=== PATIENT | female | born 1985 | race Caucasian/White ===

== ENCOUNTER 2021-10-19 20:00 | Inpatient (IN) | payer BC, SELFPAY ==
[2021-10-19 20:01] VITALS: BP 172/94; PULSE 120; RESP 18; TEMP 38.1; O2SAT 99; BMI 18.2
--- NOTE | 2021-10-19 20:23 | XR_ITS ---
PROCEDURE INFORMATION: Exam: XR Chest Exam date and time: 10/19/2021 8:37 PM Age: 36 years old Clinical indication: Fever; Additional info: Body aches TECHNIQUE: Imaging protocol: XR of the chest. Views: 2 views. COMPARISON: No relevant prior studies available. FINDINGS: Lungs: No acute airspace consolidation. Prominent nipple shadows noted. Pleural spaces: No pleural effusion. No pneumothorax. Heart/Mediastinum: Cardiomediastinal silouhette is within normal limits. Bones/joints: No acute osseous abnormality. Soft tissues: Unremarkable. IMPRESSION: No acute findings. No evidence of pneumonia.
[2021-10-19 20:25] LABS: Microscopic, Urine URINE MICROSCOPIC (MICROSCOPIC)
[2021-10-19 20:25] LABS: Coronavirus 19, PCR Not Detected (NotDetected); Influenza A, PCR Not Detected (NotDetected); Influenza B, PCR Not Detected (NotDetected)
[2021-10-19 20:29] LABS: Appearance,Urine CLOUDY (Clear); Bilirubin,Urine Negative (Negative); Blood, Urine 1+ (Negative); Color,Urine YELLOW (Yellow); Glucose,Urine (UA) Negative (Negative); Ketones,Urine Negative (Negative); Leukocyte Esterase,Urine 1+ (Negative); Nitrate,Urine POSITIVE (Negative); PH,Urine 7.5 (5.0-8.5); Protein,Urine 1+ (Negative)
[2021-10-19 20:42] LABS: Barbiturates Screen,Urine Negative ng/ml (<200); Benzodiazepines Screen,Urine Negative ng/ml (<200)
[2021-10-19 20:43] LABS: Basophils # 0.2 K/mm3 (0-0.2); Basophils % 1.3 % (0.1-2.0); Eosinophils # 0.1 K/mm3 (0.0-0.4); Hematocrit 47.6 % (37.0-47.0); Hemoglobin 16.3 g/dL (12.2-16.2); Lymphocytes # 0.6 K/mm3 (0.7-4.5); Lymphocytes % 4.7 % (10-50); Mean Corpuscular HGB Conc 34.2 g/dL (31.8-35.4); Mean Corpuscular Hemoglobin 30.8 pg (27.0-31.2); Mean Corpuscular Volume 89.9 fl (81-99); Mean Platelet Volume 9.3 fl (7.4-10.4); Monocytes # 0.8 K/mm3 (0.1-1.0); Monocytes % 6.3 % (1.7-9.3); Neutrophils # 10.4 K/mm3 (1.8-7.8); Neutrophils % 86.7 % (37.0-80.0); Platelet Count 133 K/mm3 (142-424); Red Blood Count 5.29 M/mm3 (4.20-5.40); Red Cell Distribution Width 13.4 % (11.5-17.5)
[2021-10-19 20:44] LABS: Cannabinoid Screen,Urine Positive ng/ml (<50); Cocaine Screen,Urine Negative ng/ml (<300)
--- NOTE | 2021-10-19 20:44 | PC.NURSE ---
Pt gone to RAD
[2021-10-19 20:45] LABS: Methadone Screen,Urine Negative ng/ml (<300); Opiate Screen,Urine Negative ng/ml (<300)
[2021-10-19 20:46] LABS: Phencyclidine Screen,Urine Negative ng/ml (<25)
--- NOTE | 2021-10-19 20:49 | PC.NURSE ---
Pt back from RAD
[2021-10-19 21:00] LABS: MANUAL DIFFERENTIAL MANUAL DIFFERENTIAL (MANUAL DIFF)
[2021-10-19 21:06] LABS: Alanine Aminotransferase 45 U/L (12-78); Albumin Level 4.1 g/dl (3.5-5.0); Albumin/Globulin Ratio 1.2 (1.1-1.8); Alkaline Phosphatase 62 U/L (38-126); Anion Gap 12.9 mEq/L (5-15); Aspartate Amino Transferase 51 U/L (14-36); Bilirubin,Total 1.1 mg/dl (0.2-1.3); Blood Urea Nitrogen 11 mg/dl (7-17); Calcium 8.8 mg/dl (8.4-10.2); Carbon Dioxide 26 mmol/L (22.0-30.0); Chloride 93 mmol/L (98-107); Creatinine Clearance Estimated 112 mL/min (50-200); Estimated Glomerular Filt Rate 114 ml/min (>60); GFR (African American) 138 ML/MIN (>60); Globulin 3.3 g/dL (1.3-3.2); Glucose 137 mg/dl (74-100); Potassium 4.9 mmoL/L (3.5-5.1); Sodium 127 mmol/L (136-145); Total Protein,Serum 7.4 g/dl (6.3-8.2)
[2021-10-19 21:07] LABS: Lactic Acid 2.5 mmol/L (0.7-2.1)
[2021-10-19 21:10] LABS: Bacteria,Urine 2+ /lpf; WBC,Urine 20-50 #/hpf (0-3)
--- NOTE | 2021-10-19 21:10 | HMH.EDURI ---
ED Disposition Clinical Impression: Pyelonephritis, Severe sepsis with acute organ dysfunction, Septic embolism, IVDU (intravenous drug user), Low body mass index (BMI), Amphetamine abuse, Tobacco use Disposition: Admitted As Inpatient Condition on Discharge: Serious Referrals: Provider,Referral, [Primary Care Provider] - - Critical Care Critical Care Time: No Attestation: On 10/19/21, the high probability of a clinically significant, sudden or life threatening deterioration of the following system(s) required my full and direct attention, intervention and personal management. The time I documented below is in addition to time spent performing reported procedures but includes the following listed in this critical care notation. Medical Decision Making - Medical Records Medical records reviewed: Yes: I reviewed the patient's medical records. - Mike Inquiry Pt receiving controlled substance: No Vital Signs: 10/19/21 20:01 10/19/21 21:30 10/19/21 22:18 Temperature 100.6 F H 102.9 F H Temperature Source Oral Oral Pulse Rate 121 H 99 H Pulse Rate [Right] 120 H Respiratory Rate 18 17 Blood Pressure 134/94 H 115/80 Blood Pressure [Right Arm] 172/94 H Blood Pressure Mean 91 Blood Pressure Mean [Right Arm] 120 02 Sat by Pulse Oximetry 99 99 99 Oxygen Delivery Method Room Air 10/19/21 22:30 10/19/21 23:04 10/19/21 23:30 Temperature Temperature Source Pulse Rate 99 H 87 80 Pulse Rate [Right] Respiratory Rate 17 17 16 Blood Pressure 99/58 L 132/83 112/72 Blood Pressure [Right Arm] Blood Pressure Mean 71 100 85 Blood Pressure Mean [Right Arm] 02 Sat by Pulse Oximetry 100 100 98 Oxygen Delivery Method 10/20/21 00:30 10/20/21 01:00 Temperature 97.9 F Temperature Source Oral Pulse Rate 85 79 Pulse Rate [Right] Respiratory Rate 16 16 Blood Pressure 111/75 108/66 L Blood Pressure [Right Arm] Blood Pressure Mean 82 75 Blood Pressure Mean [Right Arm] 02 Sat by Pulse Oximetry 100 98 Oxygen Delivery Method - Lab Data Lab results reviewed: Yes: I reviewed the patient's lab results. Lab Results 10/19/21 20:19: Urine Color Yellow, Urine Appearance Cloudy, Urine pH 7.5, Ur Specific [place] 1.020, Urine Protein 1+, Urine Glucose (UA) Negative, Urine Ketones Negative, Urine Blood 1+, Urine Nitrate Positive, Urine Bilirubin Negative, Urine Urobilinogen 1.0, Ur Leukocyte Esterase 1+ A, Urine RBC 3-5, Urine WBC 20-50, Ur Squamous Epith Cells 3-5, Urine Bacteria 2+ 10/19/21 20:19: Urine Opiates Screen Negative, Urine Methadone Screen Negative, Ur Barbituates Screen Negative, Ur Phencyclidine Scrn Negative, Ur Amphetamines Screen Positive H, U Benzodiazepines Scrn Negative, Urine Cocaine Screen Negative, U Marijuana (THC) Screen Positive H 10/19/21 20:21: SARS-CoV-2 (PCR) Not detected, Influenza A Untype (PCR) Not detected, Influenza Type B (PCR) Not detected 10/19/21 20:32: WBC 12.0 H, RBC 5.29, Hgb 16.3 H, Hct 47.6 H, MCV 89.9, MCH 30.8, MCHC 34.2, RDW 13.4, Plt Count 133 L, MPV 9.3, Neut % (Auto) 86.7 H, Lymph % (Auto) 4.7 L, [place] % (Auto) 6.3, Eos % (Auto) 1.0, Baso % (Auto) 1.3, Neut # (Auto) 10.4 H, Lymph # (Auto) 0.6 L, [place] # (Auto) 0.8, Eos # (Auto) 0.1, Baso # (Auto) 0.2, Total Counted 100, Neutrophils % (Manual) 86 H, Lymphocytes % (Manual) 4 L, Monocytes % (Manual) 10 H, Platelet Estimate Slight decrease, ESR 10 10/19/21 20:32: Sodium 127 L, Potassium 4.9, Chloride 93 L, Carbon Dioxide 26, Anion Gap 12.9, BUN 11, Creatinine 0.60, Estimated Creat Clear 112, Estimated GFR 114, Est GFR ( Amer) 138, Glucose 137 H, Calcium 8.8, Total Bilirubin 1.1, AST 51 H, ALT 45, Alkaline Phosphatase 62, C-Reactive Protein 60.2 H, Total Protein 7.4, Albumin 4.1, Globulin 3.3 H, Albumin/Globulin Ratio 1.2, Procalcitonin 0.542 10/19/21 20:32: Lactate 2.5 H Result diagrams: 10/19/21 20:32 10/19/21 20:32 Orders (Tests/Meds): ED MEDICATIONS Generic Name Dose Route Start Last Adm
[2021-10-19 21:11] LABS: C-Reactive Protein 60.2 mg/L (0-4)
[2021-10-19 21:13] LABS: Amphetamine/Metha Screen,Urine Positive ng/ml (<1000)
[2021-10-19 21:25] LABS: Procalcitonin 0.542 ng/mL (0.0-2.0)
[2021-10-19 21:30] VITALS: BP 134/94; PULSE 121; TEMP 39.4; O2SAT 99
--- NOTE | 2021-10-19 21:33 | CT_ITS ---
PROCEDURE INFORMATION: Exam: CT Lumbar Spine With Contrast Exam date and time: 10/19/2021 9:53 PM Age: 36 years old Clinical indication: Other: Fever TECHNIQUE: Imaging protocol: Computed tomography images of the lumbar spine with intravenous contrast. Radiation optimization: All CT scans at this facility use at least one of these dose optimization techniques: automated exposure control; mA and/or kV adjustment per patient size (includes targeted exams where dose is matched to clinical indication); or iterative reconstruction. Contrast material: ISOVUE; Contrast volume: 50 ml; Contrast route: IV; COMPARISON: CT THORACIC SPINE W CON 10/19/2021 9:49 PM FINDINGS: Vertebrae: There are 5 [id number] lumbar type vertebral bodies with transitional lumbosacral anatomy. No acute fracture or malalignment. Discs/Spinal canal/Neural foramina: Mild multilevel degenerative disc disease. No significant spinal canal stenosis or neuroforaminal narrowing. Other bones/joints: No suspicious bone lesions. Kidneys and ureters: Multifocal areas of heterogeneous hypoenhancement in the left renal cortex, some of which appear wedge-shaped in morphology, incompletely evaluated. Appendix: Appendix is visualized and is normal. Soft tissues: Unremarkable. IMPRESSION: 1. No acute osseous abnormality in the lumbar spine. 2. Multifocal areas of heterogeneous hypoenhancement in the left renal cortex, some of which appear wedge-shaped in morphology, incompletely evaluated. Findings are concerning for acute pyelonephritis vs potential embolic infarcts given wedge-shaped morphology of some of the lesions. Consider dedicated abdominal imaging for better evaluation. 3. Variant transitional lumbosacral anatomy. 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
--- NOTE | 2021-10-19 21:33 | CT_ITS ---
PROCEDURE INFORMATION: Exam: CT Thoracic Spine With Contrast Exam date and time: 10/19/2021 9:49 PM Age: 36 years old Clinical indication: Other: Fever TECHNIQUE: Imaging protocol: Computed tomography images of the thoracic spine with intravenous contrast. Radiation optimization: All CT scans at this facility use at least one of these dose optimization techniques: automated exposure control; mA and/or kV adjustment per patient size (includes targeted exams where dose is matched to clinical indication); or iterative reconstruction. Contrast material: ISOVUE; Contrast volume: 50 ml; Contrast route: IV; COMPARISON: CT CERVICAL SPINE W CON 10/19/2021 9:44 PM FINDINGS: Vertebrae: No acute fracture or malalignment. No suspicious bone lesions. Discs/Spinal canal/Neural foramina: Mild multilevel degenerative disc disease few Schmorl's nodes in the lower thoracic spine. No significant spinal canal stenosis or neuroforaminal narrowing. Soft tissues: Unremarkable. IMPRESSION: No acute osseous abnormality in the thoracic spine.
--- NOTE | 2021-10-19 21:33 | CT_ITS ---
PROCEDURE INFORMATION: Exam: CT Cervical Spine With Contrast Exam date and time: 10/19/2021 9:44 PM Age: 36 years old Clinical indication: Other: Fever TECHNIQUE: Imaging protocol: Computed tomography images of the cervical spine with intravenous contrast. Radiation optimization: All CT scans at this facility use at least one of these dose optimization techniques: automated exposure control; mA and/or kV adjustment per patient size (includes targeted exams where dose is matched to clinical indication); or iterative reconstruction. Contrast material: ISOVUE; Contrast volume: 50 ml; Contrast route: IV; COMPARISON: CR XR CHEST 2V 10/19/2021 8:37 PM FINDINGS: Bones/joints: No acute fracture or malalignment. Discs/Spinal canal/Neural foramina: No significant spinal canal stenosis or neuroforaminal narrowing. Lungs: No acute abnormality or suspicious mass lesion in the visualized lung apices. Soft tissues: Unremarkable. IMPRESSION: No acute osseous abnormality in the cervical spine.
--- NOTE | 2021-10-19 21:42 | PC.NURSE ---
spoke with Guanaco from [facility] watch on vanc loading dose, 1250mg and he is putting in the order as well as future dosing
[2021-10-19 22:18] VITALS: BP 115/80; PULSE 99; RESP 17; O2SAT 99
[2021-10-19 22:30] VITALS: BP 99/58; PULSE 99; RESP 17; O2SAT 100
[2021-10-19 22:33] LABS: Lymphocytes % 4 % (10-50); Monocytes % 10 % (2-9); Neutrophils % 86 % (42-76); Platelet Estimate Slight Decrease; Total Cells Counted 100
[2021-10-19 22:41] LABS: Erythrocyte Sedimentation Rate 10 mm/hr (0-20)
--- NOTE | 2021-10-19 23:01 | PC.NURSE ---
Pt ambulatory to bathroom with minimal assistance from visitor
[2021-10-19 23:04] VITALS: BP 132/83; PULSE 87; RESP 17; O2SAT 100
--- NOTE | 2021-10-19 23:21 | CT_ITS ---
PROCEDURE INFORMATION: Exam: CT Abdomen And Pelvis With Contrast; Kidneys Exam date and time: 10/19/2021 11:31 PM Age: 36 years old Clinical indication: Abnormal findings; Abnormal radiologic finding of the abdomen; Radiologic exam and body structure: CT lumbar; Additional info: Abn CT lumbat - lt kidney TECHNIQUE: Imaging protocol: Computed tomography of the abdomen and pelvis with intravenous contrast. Exam focused on the kidneys. Radiation optimization: All CT scans at this facility use at least one of these dose optimization techniques: automated exposure control; mA and/or kV adjustment per patient size (includes targeted exams where dose is matched to clinical indication); or iterative reconstruction. Contrast material: ISOVUE; Contrast volume: 45 ml; Contrast route: IV; COMPARISON: CT LUMBAR SPINE W CON 10/19/2021 9:53 PM FINDINGS: Limitations: Paucity of mesenteric fat limits sensitivity in CT evaluation for acute intra-abdominal processes. Liver: Camryn configuration of right hepatic lobe, normal variant. No focal liver lesions. Gallbladder and bile ducts: Unremarkable. Pancreas: Unremarkable. Spleen: Unremarkable. Adrenals: Unremarkable. Kidneys and ureters: Multifocal wedge-shaped hypoenhancing lesions in the left renal cortex with striated nephrogram demonstrated in some areas on delayed phase imaging and persistent hypoattenuation in other areas. The remaining left renal cortex enhances symmetrically with the right kidney in there is symmetric excretion of intravenous contrast into the bilateral renal collecting systems, consistent with preserved renal function. Subcentimeter well-circumscribed round lesions in the bilateral kidneys are too small to characterize, but most likely benign simple renal cysts. No hydronephrosis. Stomach and bowel: Unremarkable. Appendix: Appendix is not confidently identified. Intraperitoneal space: No free fluid. No pneumoperitoneum. Lymph nodes: Unremarkable. Vasculature: Unremarkable. Bladder: Urinary bladder is filled with excreted intravenous contrast material, and otherwise unremarkable. Reproductive: Unremarkable. Bones/joints: No acute osseous abnormality or suspicious bone lesions. Soft tissues: Unremarkable. IMPRESSION: Multifocal hypoenhancing lesions in the left renal cortex demonstrate mixed imaging features of both acute pyelonephritis and embolic infarcts vs parenchymal abscesses. Septic emboli could be a consideration in the appropriate clinical setting. COMMENTS: Consistent with the [employer]'s Incidental Findings Committee white paper (J Am Daniel Radiol 2018): Any incidental renal lesion less than 1 cm or classified as too small to characterize, or any incidental cystic renal lesion characterized as simple-appearing, is likely benign. No follow-up imaging is recommended for these lesions per consensus recommendations based on imaging criteria.
[2021-10-19 23:30] VITALS: BP 112/72; PULSE 80; RESP 16; O2SAT 98
[2021-10-20] VITALS (8 sets, daily range): BP systolic 88–114; BP diastolic 53–79; PULSE 77–88; RESP 16–20; TEMP 36.6–37.8; O2SAT 98–100; BMI 18.1
[2021-10-20 00:38] LABS: Reflex Lactic Add Lactic Reflex
[2021-10-20 00:50] LABS: Lactic Acid Follow Up (RFLX 1) 1.8 mmol/L (0.7-2.1)
--- NOTE | 2021-10-20 01:07 | PC.NURSE ---
PT AWARE OF PLAN TO ADMIT.
--- NOTE | 2021-10-20 01:37 | PC.NURSE ---
REPORT TO JANETH HONEYCUTT.
--- NOTE | 2021-10-20 01:41 | PC.NURSE ---
patient up to floor via wheelchair @ this time.
--- NOTE | 2021-10-20 04:12 | PC.NURSE ---
Patient called out and reported her IV burning, patient was in tears c/o of pain in IV site. IV flushed and aron back great. Pt stated IF you don't take this IV out I will take it out. removed IV in right AC. Educated patient on the importance of having IV access for fluids and the antibiotics she needs. She agreed to have another IV placed. supervisor slate splitting placed 20G in left upper arm. Iv fluids infusing now.
--- NOTE | 2021-10-20 04:44 | PC.NURSE ---
Patient is A/O x3, can ambulate to bathroom independently. Pt voiced x1 c/o of pain in IV site. No other c/o voiced throughout shift. Pt rested intermittently. Awaiting bed at .
[2021-10-20 06:49] LABS: Anion Gap 10.6 mEq/L (5-15); Blood Urea Nitrogen 10 mg/dl (7-17); Calcium 8.2 mg/dl (8.4-10.2); Carbon Dioxide 26 mmol/L (22.0-30.0); Chloride 101 mmol/L (98-107); Creatinine Clearance Estimated 135 mL/min (50-200); Estimated Glomerular Filt Rate 140 ml/min (>60); GFR (African American) 170 ML/MIN (>60); Glucose 99 mg/dl (74-100); Potassium 3.6 mmoL/L (3.5-5.1); Sodium 134 mmol/L (136-145)
[2021-10-20 06:51] LABS: Basophils # 0.1 K/mm3 (0-0.2); Basophils % 0.6 % (0.1-2.0); Eosinophils % 0.1 % (0.1-12.0); Hematocrit 42.3 % (37.0-47.0); Lymphocytes # 0.8 K/mm3 (0.7-4.5); Lymphocytes % 7.6 % (10-50); Mean Corpuscular HGB Conc 34.2 g/dL (31.8-35.4); Mean Corpuscular Hemoglobin 30.7 pg (27.0-31.2); Mean Corpuscular Volume 89.9 fl (81-99); Mean Platelet Volume 9.5 fl (7.4-10.4); Monocytes # 0.8 K/mm3 (0.1-1.0); Monocytes % 7.5 % (1.7-9.3); Neutrophils # 9.1 K/mm3 (1.8-7.8); Neutrophils % 84.2 % (37.0-80.0); Platelet Count 124 K/mm3 (142-424); Red Blood Count 4.71 M/mm3 (4.20-5.40); Red Cell Distribution Width 13.6 % (11.5-17.5); White Blood Count 10.8 K/mm3 (4.8-10.8)
[2021-10-20 07:00] LABS: Hemoglobin 14.5 g/dL (12.2-16.2)
--- NOTE | 2021-10-20 07:51 | HMH.PHAVTE ---
[facility] Pharmacy VTE Monitoring - Patient Demographics Admission date: 10/20/21 Report Date: 10/20/21 Time: 07:51 Allergies/Adverse Reactions: Patient Allergies Sulfa (Sulfonamide Antibiotics) Allergy (Verified 10/20/21 04:10) Height: 1.73 m Weight: 54.431 kg Patient Problems: Current Active Problems Pyelonephritis (Acute) Severe sepsis with acute organ dysfunction (Acute) Septic embolism (Acute) IVDU (intravenous drug user) (Acute) Low body mass index (BMI) (Acute) Amphetamine abuse (Acute) Tobacco use (Acute) - VTE Risk Labs: VTE Related Lab Results Hgb 14.5 g/dL (12.2-16.2) D 10/20/21 06:04 Hct 42.3 % (37.0-47.0) 10/20/21 06:04 Plt Count 124 K/mm3 (142-424) L 10/20/21 06:04 BUN 10 mg/dl (7-17) 10/20/21 06:04 Creatinine 0.50 mg/dl (0.52-1.04) L 10/20/21 06:04 Estimated Creat Clear 135 mL/min (50-200) 10/20/21 06:04 Was VTE Risk Assessment Performed: Yes VTE Score: 1 VTE Risk Level: Very Low Risk Clinical Trial Participant: No - Prophylaxis VTE Prophylaxis Ordered?: Yes Types of VTE Prophylaxis: TEDS Knee High
--- NOTE | 2021-10-20 08:00 | CA_ITS ---
APPROVED REPORT EXAM: Comprehensive 2D, Doppler, and color-flow Echocardiogram Dials Supervisor: JACKSON Valencia, RVS Ht: 5 ft 8 in Wt: 120lbs BSA: 1.64 BP: 000/00 mmHg Indications: IV drug use, Left renal emboli, Sepsis, Fever Echo Enhancing Agent Comments: Bright pericardium 2D Dimensions IVSd 0.56 cm LVEF (Visual) 50.00 % PWd 0.64 cm LA Volume 36.60 mL LVDd 4.41 cm LA Volume Index 22.661214 mL/m2 (M/F) 16-34 LVDs 3.30 cm LVOT 1.90 cm (M/F) 1.5-2.5 M-Mode Dimensions RVDd 1.16 cm (0.9-2.6) LA Diam 2.91 cm (1.9-4.0) LVDd 4.74 cm (3.5-5.7) Ao Diam 3.09 cm (2.0-3.7) LVDs 3.19 cm (3.5-5.7) IVSd 0.51 cm (0.6-1.1) PWd 0.62 cm (0.6-1.1) EF (Teich) 61.10% EPSs 0.44 cm FS 32.70% EDV (Teich) 104.40 mL TAPSE 2.69 (<1.7) ESV (Teich) 40.60 mL LV Diastology E Decel Time 147.00 (160-240 msec) E/A Ratio 2.12 MED E' 11.00 (< 7 cm/sec) MED A' 14.40 cm/s E'/MED E' Ratio 10.53 (>14) LAT E' 16.70 (<10 cm/sec) LAT A' 11.80 cm/s E/LAT E' Ratio 6.93 (>14) Aortic Valve LVOT Max 119.00 (70-110 cm/s) LVOT VTI 21.47 cm AoV Peak Kaden. 135.00 (50-130 cm/s) AO Peak GR. 7.30 mmHg AO Mean GR. 3.70 (<5 mmHg) AO VTI 24.97 (18-25 cm) ALINE (VTI) 2.44 (2.5-4.5 cm2) Mitral Valve MV A Velocity 55.00 (40-130 cm/s) E/A Ratio 2.12 MV Decel. Time 147.00 (160-240 ms) MV Mean Gr. 2.00 (<2mmHg) MV PHT 43.00 ms Pulmonary Valve PV Peak Velocity 121.00 (50-150 cm/s) Left Ventricle Left atrium normal size, left ventricle is normal size, there is no concentric left ventricular hypertrophy, estimated ejection fraction 55% with no regional wall motion abnormality, diastolic parameters are within normal range. Right Ventricle Right atrium and right ventricle are normal size and contractility. Aortic Valve Aortic valve grossly normal, there is no aortic stenosis or aortic insufficiency. Mitral Valve Mitral valve grossly normal, there is trace mitral regurgitation. Tricuspid Valve Tricuspid valve grossly normal, there is trace tricuspid regurgitation, tricuspid regurgitation jet velocity is inadequate for calculation of the right ventricular systolic pressure. Pulmonic Valve Pulmonic valve is poorly visualized. Great Vessels Aortic root is normal size. Inferior vena cava is normal size with normal inspiratory collapse. Pericardium No significant pericardial effusion. Conclusion 1. Normal left ventricular size, preserved left ventricular systolic function, estimated ejection fraction 55% with no regional wall motion abnormality, diastolic parameters are within normal range. 2. Trace mitral and tricuspid regurgitation. 3. No significant pericardial effusion 4. Inferior vena cava is normal size with normal systolic collapse. Electronically signed by : Andres Tucker MD 10/21/2021 06:14:09
--- NOTE | 2021-10-20 08:16 | HMH.PHACONS ---
- Pharmacy Consult Date: 10/20/21 Time: 08:16 Referring provider: DR. CHEUNG Reason for Consult:: VANCOMYCIN DOSING Allergies and ADEs:: Allergies Allergy/AdvReac Type Severity Reaction Status Date / Time Sulfa (Sulfonamide Allergy Verified 10/20/21 04:10 Antibiotics) Home Medications:: Home Medications Medication Instructions Recorded Confirmed Type No Known Home Medications 10/19/21 10/19/21 History Height: 1.73 m Weight: 54.431 kg Laboratory Results:: Laboratory Results - last 24 hr 10/19/21 20:19: Urine Color Yellow, Urine Appearance Cloudy, Urine pH 7.5, Ur Specific [place] 1.020, Urine Protein 1+, Urine Glucose (UA) Negative, Urine Ketones Negative, Urine Blood 1+, Urine Nitrate Positive, Urine Bilirubin Negative, Urine Urobilinogen 1.0, Ur Leukocyte Esterase 1+ A, Urine RBC 3-5, Urine WBC 20-50, Ur Squamous Epith Cells 3-5, Urine Bacteria 2+ 10/19/21 20:19: Urine Opiates Screen Negative, Urine Methadone Screen Negative, Ur Barbituates Screen Negative, Ur Phencyclidine Scrn Negative, Ur Amphetamines Screen Positive H, U Benzodiazepines Scrn Negative, Urine Cocaine Screen Negative, U Marijuana (THC) Screen Positive H 10/19/21 20:21: SARS-CoV-2 (PCR) Not detected, Influenza A Untype (PCR) Not detected, Influenza Type B (PCR) Not detected 10/19/21 20:32: WBC 12.0 H, RBC 5.29, Hgb 16.3 H, Hct 47.6 H, MCV 89.9, MCH 30.8, MCHC 34.2, RDW 13.4, Plt Count 133 L, MPV 9.3, Neut % (Auto) 86.7 H, Lymph % (Auto) 4.7 L, [place] % (Auto) 6.3, Eos % (Auto) 1.0, Baso % (Auto) 1.3, Neut # (Auto) 10.4 H, Lymph # (Auto) 0.6 L, [place] # (Auto) 0.8, Eos # (Auto) 0.1, Baso # (Auto) 0.2, Total Counted 100, Neutrophils % (Manual) 86 H, Lymphocytes % (Manual) 4 L, Monocytes % (Manual) 10 H, Platelet Estimate Slight decrease, ESR 10 10/19/21 20:32: Sodium 127 L, Potassium 4.9, Chloride 93 L, Carbon Dioxide 26, Anion Gap 12.9, BUN 11, Creatinine 0.60, Estimated Creat Clear 112, Estimated GFR 114, Est GFR ( Amer) 138, Glucose 137 H, Calcium 8.8, Total Bilirubin 1.1, AST 51 H, ALT 45, Alkaline Phosphatase 62, C-Reactive Protein 60.2 H, Total Protein 7.4, Albumin 4.1, Globulin 3.3 H, Albumin/Globulin Ratio 1.2, Procalcitonin 0.542 10/19/21 20:32: Lactate 2.5 H 10/20/21 00:16: Lactate 1.8 10/20/21 06:04: WBC 10.8, RBC 4.71, Hgb 14.5 D, Hct 42.3, MCV 89.9, MCH 30.7, MCHC 34.2, RDW 13.6, Plt Count 124 L, MPV 9.5, Neut % (Auto) 84.2 H, Lymph % (Auto) 7.6 L, [place] % (Auto) 7.5, Eos % (Auto) 0.1, Baso % (Auto) 0.6, Neut # (Auto) 9.1 H, Lymph # (Auto) 0.8, [place] # (Auto) 0.8, Eos # (Auto) 0.0, Baso # (Auto) 0.1 10/20/21 06:04: Sodium 134 L, Potassium 3.6 D, Chloride 101, Carbon Dioxide 26, Anion Gap 10.6, BUN 10, Creatinine 0.50 L, Estimated Creat Clear 135, Estimated GFR 140, Est GFR ( Amer) 170 D, Glucose 99 D, Calcium 8.2 L Medical History: Denies:: Cancer, Diabetes Mellitus Type 1, Diabetes Mellitus Type 2, MRSA Assessment and Plan - Assessment and plan all Dx Assessment and Plan for all problems:: Age: 36 yo Serum creatinine: 0.5 mg/dL Height: 68.1 Inches Weight (kg): 54.4 Assessment: IBW (kg): 64.13 Dosing wt(kg): 54.4 Estimated Creatinine clearance (ml/min): 130 Clearance limited to 130 ml/min to reduce risk of overdosing. CRCL method: Cockcroft and Gault using ibw(default). Drug selected: Vancomycin Loading dose (mg): 0 Vd (liters): 46.2 (factor used: 0.85 L/kg) Hong (hr-1): 0.112 Half life (hrs): 6.19 Recommended dose: 1000 mg Interval: 8 hrs Infusion time (hrs): 2.0 Predicted peak (mcg/mL): 32.8 Predicted trough (mcg/mL): 16.75 Total body weight is being used for vancomycin dosing. Recommendations: Give Vancomycin 1000 mg q 8 hrs with an expected Cpeak of 32.8 mcg/ml and an expected Ctrough of 16.75 mcg/ml. ----Vanco only - ignore for aminoglycosides----- CLvanco= 5.17 L/hr AUC 0-24 /M
--- NOTE | 2021-10-20 09:32 | HMH.HP ---
*Admission Date: 10/20/21 *Chief complaint: back pain *History of present illness: 36 yr old female presented to ed for c/o body aches, fever,chills, and n/v x 1 week.pt admits to iv drug use 7 days ago. While in ed pt had Ct Abd/pelvis that showed Multifocal hypoenhancing lesions in the left renal cortex demonstrate mixed imaging features of both acute pyelonephritis and embolic infarcts vs parenchymal abscesses. Septic emboli could be a consideration in the appropriate clinical setting. was called and pt placed on transfer list waiting on bed. Pt was admitted due to IV drug use and fever with prob pyelo and possible septic emboli and sev sepsis with organ dysfunction. Will need iv antibiotics, urology consult and wait cx result while waiting for a bed for transfer to . [facility] History I have reviewed the patient's past medical history: Yes Medical History: Denies:: Cancer, Diabetes Mellitus Type 1, Diabetes Mellitus Type 2, MRSA *Have you ever received a pneumonia vaccine?: No *Have you received a flu vaccine this season?: No Other Surgeries: Yes: Appendectomy, Hysterectomy-Partial, Tubal Ligation Amputation: No Fractures: No - *Social History Smoking Status: Current every day smoker Tobacco Type: cigarettes # Packs/Day (cigarettes): 1 Alcohol Intake: never Substance Use Type: marijuana, methamphetamine Last Used Substance: days (ago) *Occupational Status:: unemployed Housing: house Household Members: significant other *Travel in the last 8 weeks: None Family Hx:: Cancer, Diabetes Review of Systems - Review of Systems Review of systems:: pertinent systems reviewed and negative unless documented below - Constitutional Reports body ache(s), Reports chills, Reports fatigue, Reports fever(s) - Eyes Denies bulging eyes - ENT Denies abnormal hearing, Denies dizziness - *Cardiovascular Denies chest pain at rest - *Respiratory Denies change in phlegm color - *Gastrointestinal Reports abdominal pain, Denies nausea, Denies vomiting - *Genitourinary Reports painful urination, Reports urinary urgency - *Musculoskeletal Denies abnormal walking - Integumentary/Breasts Denies rash - *Neurologic Denies dizziness, Denies seizure-like activity - Psychiatric Denies lack of enjoyment - Endocrine Denies excessive sweating - Hematologic/Lymphatic Denies easy bruising - Allergic/Immunologic Denies itchy eyes Meds Home Medications Medication Instructions Recorded Confirmed Type No Known Home Medications 10/19/21 10/19/21 History Allergies Allergy/AdvReac Type Severity Reaction Status Date / Time Sulfa (Sulfonamide Allergy Verified 10/20/21 04:10 Antibiotics) Exam Vital signs and Labs for Last 24 Hours: Temp Pulse Resp BP Pulse Ox 98.6 F 84 16 106/54 L 100 10/20/21 07:55 10/20/21 07:55 10/20/21 07:55 10/20/21 07:55 10/20/21 07:55 Laboratory Results - last 24 hr 10/19/21 20:19: Urine Color Yellow, Urine Appearance Cloudy, Urine pH 7.5, Ur Specific [place] 1.020, Urine Protein 1+, Urine Glucose (UA) Negative, Urine Ketones Negative, Urine Blood 1+, Urine Nitrate Positive, Urine Bilirubin Negative, Urine Urobilinogen 1.0, Ur Leukocyte Esterase 1+ A, Urine RBC 3-5, Urine WBC 20-50, Ur Squamous Epith Cells 3-5, Urine Bacteria 2+ 10/19/21 20:19: Urine Opiates Screen Negative, Urine Methadone Screen Negative, Ur Barbituates Screen Negative, Ur Phencyclidine Scrn Negative, Ur Amphetamines Screen Positive H, U Benzodiazepines Scrn Negative, Urine Cocaine Screen Negative, U Marijuana (THC) Screen Positive H 10/19/21 20:21: SARS-CoV-2 (PCR) Not detected, Influenza A Untype (PCR) Not detected, Influenza Type B (PCR) Not detected 10/19/21 20:32: WBC 12.0 H, RBC 5.29, Hgb 16.3 H, Hct 47.6 H, MCV 89.9, MCH 30.8, MCHC 34.2, RDW 13.4, Plt Count 133 L, MPV 9.3, Neut % (Auto) 86.7 H, Lymph % (Auto) 4.7 L, [place] % (Auto) 6.3, Eos % (Auto) 1.0, Baso % (Auto) 1.3, Neut # (Auto) 10.4 H,
--- NOTE | 2021-10-20 11:38 | PC.NURSE ---
Spoke w/ Aretha @ [facility] and she stated there was no bed available at this time for pt.
--- NOTE | 2021-10-20 13:18 | PC.NURSE ---
[facility] called for update still no beds available.
--- NOTE | 2021-10-20 21:34 | PC.NURSE ---
Lab called to report blood cultures preliminary results positive for e. coli with gram negative rods. Dr. Barreto notified. No new orders.
--- NOTE | 2021-10-20 22:10 | PC.NURSE ---
[facility] called at this time for update on patient, no beds available at this time.
[2021-10-21] VITALS: BP 100/65; PULSE 67; RESP 16; TEMP 36.5; O2SAT 99
[2021-10-21 04:00] VITALS: BP 106/68; PULSE 60; RESP 18; TEMP 36.8; O2SAT 100
--- NOTE | 2021-10-21 04:01 | PC.NURSE ---
No changes this shift. Patient got out of bed and showered. She has rested well this shift. C/o pain in the lower back/flank area, gave PRN medications according to MAR. Call light in place and working appropriately.
[2021-10-21 04:40] VITALS: BMI 15.9
[2021-10-21 07:24] LABS: Basophils # 0.1 K/mm3 (0-0.2); Basophils % 0.7 % (0.1-2.0); Eosinophils # 0.1 K/mm3 (0.0-0.4); Eosinophils % 1.4 % (0.1-12.0); Hematocrit 36.7 % (37.0-47.0); Hemoglobin 12.7 g/dL (12.2-16.2); Lymphocytes # 1.3 K/mm3 (0.7-4.5); Mean Corpuscular HGB Conc 34.6 g/dL (31.8-35.4); Mean Corpuscular Hemoglobin 31.5 pg (27.0-31.2); Mean Corpuscular Volume 91.3 fl (81-99); Mean Platelet Volume 9.6 fl (7.4-10.4); Monocytes # 1.1 K/mm3 (0.1-1.0); Monocytes % 11.2 % (1.7-9.3); Neutrophils # 6.8 K/mm3 (1.8-7.8); Neutrophils % 72.7 % (37.0-80.0); Platelet Count 113 K/mm3 (142-424); Red Blood Count 4.02 M/mm3 (4.20-5.40); Red Cell Distribution Width 13.6 % (11.5-17.5); White Blood Count 9.4 K/mm3 (4.8-10.8)
[2021-10-21 07:48] LABS: Anion Gap 6.4 mEq/L (5-15); Blood Urea Nitrogen 7 mg/dl (7-17); Carbon Dioxide 26 mmol/L (22.0-30.0); Chloride 105 mmol/L (98-107); Creatinine Clearance Estimated 118 mL/min (50-200); Estimated Glomerular Filt Rate 140 ml/min (>60); GFR (African American) 170 ML/MIN (>60); Glucose 86 mg/dl (74-100); Potassium 3.4 mmoL/L (3.5-5.1); Sodium 134 mmol/L (136-145)
[2021-10-21 08:00] VITALS: BP 108/71; PULSE 67; RESP 17; TEMP 36.9; O2SAT 100
[2021-10-21 08:00] LABS: Vancomycin,Trough 15.4 ug/mL (5.0-10.0)
--- NOTE | 2021-10-21 08:57 | PC.NURSE ---
Spoke to Bhupendra Minor, mauricio to give vancomycin that is due @ 0900.
--- NOTE | 2021-10-21 09:08 | HMH.ACPN2 ---
Internal Medicine - PN: Subj *Date: 10/21/21 *Time: 09:28 Interval history: 36-year-old female patient resting in bed quietly with eyes closed, awakens to verbal stimuli. She reports she is very hungry today, I explained may start diet after urology consult. She reports she does feel a little better, urine is growing E. coli, she is receiving cefepime and vancomycin Exam Vital signs and Labs for Last 24 Hours: Temp Pulse Resp BP Pulse Ox 98.3 F 60 18 106/68 L 100 10/21/21 04:00 10/21/21 04:00 10/21/21 04:00 10/21/21 04:00 10/21/21 04:00 Laboratory Results - last 24 hr 10/19/21 20:19: Urine Color Yellow, Urine Appearance Cloudy, Urine pH 7.5, Ur Specific [place] 1.020, Urine Protein 1+, Urine Glucose (UA) Negative, Urine Ketones Negative, Urine Blood 1+, Urine Nitrate Positive, Urine Bilirubin Negative, Urine Urobilinogen 1.0, Ur Leukocyte Esterase 1+ A, Urine RBC 3-5, Urine WBC 20-50, Ur Squamous Epith Cells 3-5, Urine Bacteria 2+ 10/21/21 06:25: WBC 9.4, RBC 4.02 L, Hgb 12.7, Hct 36.7 L, MCV 91.3, MCH 31.5 H, MCHC 34.6, RDW 13.6, Plt Count 113 L, MPV 9.6, Neut % (Auto) 72.7, Lymph % (Auto) 14.0, [place] % (Auto) 11.2 H, Eos % (Auto) 1.4, Baso % (Auto) 0.7, Neut # (Auto) 6.8, Lymph # (Auto) 1.3, [place] # (Auto) 1.1 H, Eos # (Auto) 0.1, Baso # (Auto) 0.1 10/21/21 06:25: Sodium 134 L, Potassium 3.4 L, Chloride 105, Carbon Dioxide 26, Anion Gap 6.4, BUN 7 D, Creatinine 0.50 L, Estimated Creat Clear 118, Estimated GFR 140, Est GFR ( Amer) 170, Glucose 86, Calcium 8.0 L 10/21/21 06:30: Vancomycin Trough 15.4 H I & O for Last 24 hours: Intake & Output 10/18/21 10/19/21 10/20/21 10/21/21 23:59 23:59 23:59 23:59 Intake Total 2863 / 2863 Output Total 700 / 700 Balance 2163 / 2163 Weight 120 lb 119 lb 14.903 oz 105 lb Microbiology Reports for the Last 24 Hours: Microbiology 10/19/21 20:19 Urine,Clean Catch Urine Culture - Final Escherichia coli 10/19/21 20:32 Blood Blood Culture - Preliminary - Constitutional no acute distress, thin - *Routine HEENT Exam Head: Present: normocephalic Eye: Present: EOMI ENT: Present: mucous membranes moist - *Routine Neck Exam Present: trachea midline. Absent: tracheal deviation - *Routine Respiratory Exam Present: CTA bilaterally. Absent: accessory muscle use - *Routine Cardiovascular Exam Present: RRR - *Routine Abdominal Exam Present: soft, normoactive bowel sounds. Absent: tenderness, firm - *Routine Extremities Exam Present: full ROM, pulses intact. Absent: cyanosis, clubbing - *Routine Skin Exam Present: intact, dry. Absent: cyanosis, erythema - *Routine Neurological Exam Present: alert, oriented X3. Absent: motor deficit - Routine Psychiatric Exam Present: normal affect, normal thought process. Absent: visual hallucinations Assessment and Plan (1) Amphetamine abuse Status: Acute Category: Medical Code(s): F15.10 - Other stimulant abuse, uncomplicated (2) IVDU (intravenous drug user) Status: Acute Category: Social Hx Code(s): F19.90 - Other psychoactive substance use, unspecified, uncomplicated (3) Low body mass index (BMI) Status: Acute Category: Medical (4) Pyelonephritis Status: Acute Category: Medical Code(s): N12 - Tubulo-interstitial nephritis, not specified as acute or chronic (5) Septic embolism Status: Acute Category: Medical Code(s): I76 - Septic arterial embolism (6) Severe sepsis with acute organ dysfunction Status: Acute Category: Medical Code(s): A41.9 - Sepsis, unspecified organism; R65.20 - Severe sepsis without septic shock (7) Tobacco use Status: Acute Category: Social Hx Code(s): Z72.0 - Tobacco use - Assessment and plan all Dx Assessment and Plan for all problems:: Rounded with Dr. Trotter, all orders per Dr. Trotter: 1. Continue current antibiotic regimen 2. Awaiting bed at for transfer 3. Urology refer
--- NOTE | 2021-10-21 09:54 | PC.NURSE ---
[facility] called for an update on pt, no bed at this time, will call back when one is available.
--- NOTE | 2021-10-21 10:27 | PC.NURSE ---
Per MD Bowden, pt can eat and does not need to be NPO.
[2021-10-21 13:03] LABS: Vancomycin,Peak 30.8 ug/ml (11-39)
--- NOTE | 2021-10-21 13:58 | HMH.CONS ---
*Admission Date: 10/20/21 *Reason for consult:: Pyelonephritis and abnormal left kidney on CT scan. *History of present illness: Patient is a 36-year-old white female with a history of IV drug abuse. She presented to the emergency room yesterday with body aches, fever, chills and nausea vomiting x1 week. She admitted to IV drug use [address] scan of the abdomen pelvis showed multiple Hypo- enhancing lesions in the left kidney without evidence of obstruction. These imaging features were thought to be acute pyelonephritis and embolic infarcts versus parenchymal abscesses. Septic emboli is also a consideration. Patient's urinalysis on admission was positive for amphetamines and marijuana. There was 2+ bacteria. Her white count was 12,000 and her creatinine was 0.6. She is awaiting transfer to . She is currently on vancomycin for antibiotic coverage. Her urine culture is growing out E. coli which is pansensitive. Her white count has improved to 9.4 as of today. [facility] History Medical History: Denies:: Cancer, Diabetes Mellitus Type 1, Diabetes Mellitus Type 2, MRSA *Have you ever received a pneumonia vaccine?: No *Have you received a flu vaccine this season?: No Other Surgeries: Yes: Appendectomy, Hysterectomy-Partial, Tubal Ligation Amputation: No Fractures: No - *Social History Smoking Status: Current every day smoker Tobacco Type: cigarettes # Packs/Day (cigarettes): 1 Alcohol Intake: never Substance Use Type: marijuana, methamphetamine Last Used Substance: days (ago) *Occupational Status:: unemployed Housing: house Household Members: significant other *Travel in the last 8 weeks: None Family Hx:: Cancer, Diabetes Review of Systems - Review of Systems Review of systems:: pertinent systems reviewed and negative unless documented below - *Neurologic Denies abnormal walking, Denies abnormal hearing, Denies dizziness, Denies seizure-like activity Meds Home Medications Medication Instructions Recorded Confirmed Type No Known Home Medications 10/19/21 10/19/21 History Allergies Allergy/AdvReac Type Severity Reaction Status Date / Time Sulfa (Sulfonamide Allergy Verified 10/20/21 04:10 Antibiotics) Exam Vital signs and Labs for Last 24 Hours: Temp Pulse Resp BP Pulse Ox 98.4 F 67 17 108/71 L 100 10/21/21 08:00 10/21/21 08:00 10/21/21 08:00 10/21/21 08:00 10/21/21 08:00 Laboratory Results - last 24 hr 10/21/21 06:25: WBC 9.4, RBC 4.02 L, Hgb 12.7, Hct 36.7 L, MCV 91.3, MCH 31.5 H, MCHC 34.6, RDW 13.6, Plt Count 113 L, MPV 9.6, Neut % (Auto) 72.7, Lymph % (Auto) 14.0, [place] % (Auto) 11.2 H, Eos % (Auto) 1.4, Baso % (Auto) 0.7, Neut # (Auto) 6.8, Lymph # (Auto) 1.3, [place] # (Auto) 1.1 H, Eos # (Auto) 0.1, Baso # (Auto) 0.1 10/21/21 06:25: Sodium 134 L, Potassium 3.4 L, Chloride 105, Carbon Dioxide 26, Anion Gap 6.4, BUN 7 D, Creatinine 0.50 L, Estimated Creat Clear 118, Estimated GFR 140, Est GFR ( Amer) 170, Glucose 86, Calcium 8.0 L 10/21/21 06:30: Vancomycin Trough 15.4 H 10/21/21 11:46: Vancomycin Peak 30.8 I & O for Last 24 hours: Intake & Output 10/18/21 10/19/21 10/20/21 10/21/21 23:59 23:59 23:59 23:59 Intake Total 2863 / 2863 Output Total 700 / 700 Balance 2163 / 2163 Weight 54.431 kg 54.4 kg 47.627 kg Microbiology Reports for the Last 24 Hours: Microbiology 10/19/21 20:32 Blood Blood Culture - Preliminary Gram Negative Rods 10/19/21 20:19 Urine,Clean Catch Urine Culture - Final Escherichia coli - Constitutional no acute distress - *Routine HEENT Exam Head: Present: normocephalic Eye: Present: EOMI, PERRL ENT: Present: mucous membranes moist - *Routine Neck Exam Present: supple. Absent: lymphadenopathy - *Routine Respiratory Exam Absent: accessory muscle use - *Routine Cardiovascular Exam Absent: JVD - *Routine Abdominal Exam Present: soft. Absent: t
--- NOTE | 2021-10-21 14:11 | PC.NURSE ---
rounded on patient. no concerns about plan of care at this time. did educate on still being on transfer list at this time. has called to check on patient but still no beds. did state she feels funny after eating. no questions regarding medication.
--- NOTE | 2021-10-21 14:47 | P.CONPHA_ITS ---
- Pharmacy Consult Date: 10/21/21 Time: 14:47 Referring provider: DR. CHEUNG Reason for Consult:: VANCOMYCIN PEAK AND TROUGH LEVELS Allergies and ADEs:: Allergies Allergy/AdvReac Type Severity Reaction Status Date / Time Sulfa (Sulfonamide Allergy Verified 10/20/21 04:10 Antibiotics) Home Medications:: Home Medications Medication Instructions Recorded Confirmed Type No Known Home Medications 10/19/21 10/19/21 History Height: 1.73 m Weight: 47.627 kg Laboratory Results:: Laboratory Results - last 24 hr 10/21/21 06:25: WBC 9.4, RBC 4.02 L, Hgb 12.7, Hct 36.7 L, MCV 91.3, MCH 31.5 H, MCHC 34.6, RDW 13.6, Plt Count 113 L, MPV 9.6, Neut % (Auto) 72.7, Lymph % (Auto) 14.0, [place] % (Auto) 11.2 H, Eos % (Auto) 1.4, Baso % (Auto) 0.7, Neut # (Auto) 6.8, Lymph # (Auto) 1.3, [place] # (Auto) 1.1 H, Eos # (Auto) 0.1, Baso # (Auto) 0.1 10/21/21 06:25: Sodium 134 L, Potassium 3.4 L, Chloride 105, Carbon Dioxide 26, Anion Gap 6.4, BUN 7 D, Creatinine 0.50 L, Estimated Creat Clear 118, Estimated GFR 140, Est GFR ( Amer) 170, Glucose 86, Calcium 8.0 L 10/21/21 06:30: Vancomycin Trough 15.4 H 10/21/21 11:46: Vancomycin Peak 30.8 Medical History: Denies:: Cancer, Diabetes Mellitus Type 1, Diabetes Mellitus Type 2, MRSA Assessment and Plan (1) Amphetamine abuse Status: Acute Category: Medical Code(s): F15.10 - Other stimulant abuse, uncomplicated (2) IVDU (intravenous drug user) Status: Acute Category: Social Hx Code(s): F19.90 - Other psychoactive substance use, unspecified, uncomplicated (3) Low body mass index (BMI) Status: Acute Category: Medical (4) Pyelonephritis Status: Acute Category: Medical Code(s): N12 - Tubulo-interstitial nephritis, not specified as acute or chronic (5) Septic embolism Status: Acute Category: Medical Code(s): I76 - Septic arterial embolism (6) Severe sepsis with acute organ dysfunction Status: Acute Category: Medical Code(s): A41.9 - Sepsis, unspecified organism; R65.20 - Severe sepsis without septic shock (7) Tobacco use Status: Acute Category: Social Hx Code(s): Z72.0 - Tobacco use - Assessment and plan all Dx Assessment and Plan for all problems:: BASED ON PATIENT FACTORS AND VANC PEAK/TROUGH LEVELS OF 30.8/15.4 RESPECTIVELY, RECOMMEND CONTINUING CURRENT DOSE OF VANCOMYCIN AT 1GM EVERY 8 HOURS. PHARMACY WILL CONTINUE TO FOLLOW AND WILL ADJUST DOSE APPROPRIATE. -XAVIER SUGGS, KARINAD
[2021-10-21 16:00] VITALS: BP 121/80; PULSE 79; RESP 16; TEMP 37.2; O2SAT 100
--- NOTE | 2021-10-21 16:40 | PC.NURSE ---
Pt has rested in bed throughout shift. Pt has ambulated to the restroom independently. Pt had complaint of headache, treated with PRN meds per JUL. No other complaints. VSS. Still awaiting bed at at this time. Will continue to monitor.
--- NOTE | 2021-10-21 18:50 | PC.NURSE ---
Tech notified this RN that pt was c/o not being able to move her entire body. Pt had equal money order clerk, was able to hold up both arms, smile was symmetrical and passed all other neuro checks. Pt also stated that she has been told that she randomly shakes all over . Out of precaution, this RN notified MD Chase who is instructional leader for MD Adame. This RN also applied seizure pads. Spoke to MD Chase, and he stated to perform another neuro check in 2 hours. If any neuro deficit, page him again.
[2021-10-21 20:00] VITALS: BP 123/63; PULSE 98; RESP 21; TEMP 37.2; O2SAT 97
[2021-10-22 04:00] VITALS: BP 115/74; PULSE 80; RESP 21; TEMP 37.9; O2SAT 97
[2021-10-22 05:13] VITALS: BMI 15.9
--- NOTE | 2021-10-22 05:17 | PC.NURSE ---
Patient rested throughout shift. Patient is A/O x3, can ambulate to bathroom independently. No mima deficits noted throughout shift. No complaints nor pain noted by patient. Patient febrile this am with 100.2F temperature, medicated per JUL. Patient still awaiting a bed at . IV ABX administered per JUL.
[2021-10-22 07:06] LABS: Basophils % 0.5 % (0.1-2.0); Eosinophils # 0.1 K/mm3 (0.0-0.4); Eosinophils % 1.8 % (0.1-12.0); Hematocrit 39.1 % (37.0-47.0); Hemoglobin 13.4 g/dL (12.2-16.2); Lymphocytes # 1.3 K/mm3 (0.7-4.5); Lymphocytes % 18.8 % (10-50); Mean Corpuscular HGB Conc 34.2 g/dL (31.8-35.4); Mean Corpuscular Hemoglobin 30.9 pg (27.0-31.2); Mean Corpuscular Volume 90.5 fl (81-99); Mean Platelet Volume 9.1 fl (7.4-10.4); Monocytes # 0.7 K/mm3 (0.1-1.0); Monocytes % 10.2 % (1.7-9.3); Neutrophils # 4.7 K/mm3 (1.8-7.8); Neutrophils % 68.7 % (37.0-80.0); Platelet Count 184 K/mm3 (142-424); Red Blood Count 4.32 M/mm3 (4.20-5.40); Red Cell Distribution Width 13.6 % (11.5-17.5); White Blood Count 6.8 K/mm3 (4.8-10.8)
[2021-10-22 07:07] LABS: Anion Gap 8.6 mEq/L (5-15); Blood Urea Nitrogen 9 mg/dl (7-17); Calcium 8.5 mg/dl (8.4-10.2); Carbon Dioxide 26 mmol/L (22.0-30.0); Chloride 105 mmol/L (98-107); Creatinine Clearance Estimated 98 mL/min (50-200); Estimated Glomerular Filt Rate 114 ml/min (>60); GFR (African American) 138 ML/MIN (>60); Glucose 100 mg/dl (74-100); Potassium 3.6 mmoL/L (3.5-5.1); Sodium 136 mmol/L (136-145)
[2021-10-22 08:00] VITALS: BP 112/77; PULSE 73; RESP 15; TEMP 36.8; O2SAT 96
--- NOTE | 2021-10-22 08:34 | PC.NURSE ---
Spoke with Salima from lab aerobic + PCR ecoli, and gram neg bacilli. Told Dr. Adame in person.
--- NOTE | 2021-10-22 08:57 | HMH.ACPN2 ---
Internal Medicine - PN: Subj *Date: 10/22/21 *Time: 08:20 Interval history: pt laying in bed states she has a sore throat and nasal congestion Exam Vital signs and Labs for Last 24 Hours: Temp Pulse Resp BP Pulse Ox 98.3 F 73 15 112/77 96 10/22/21 08:00 10/22/21 08:00 10/22/21 08:00 10/22/21 08:00 10/22/21 08:00 Laboratory Results - last 24 hr 10/21/21 11:46: Vancomycin Peak 30.8 10/22/21 06:50: WBC 6.8 D, RBC 4.32, Hgb 13.4, Hct 39.1, MCV 90.5, MCH 30.9, MCHC 34.2, RDW 13.6, Plt Count 184 D, MPV 9.1, Neut % (Auto) 68.7, Lymph % (Auto) 18.8, [place] % (Auto) 10.2 H, Eos % (Auto) 1.8, Baso % (Auto) 0.5, Neut # (Auto) 4.7, Lymph # (Auto) 1.3, [place] # (Auto) 0.7, Eos # (Auto) 0.1, Baso # (Auto) 0.0 10/22/21 06:50: Sodium 136, Potassium 3.6, Chloride 105, Carbon Dioxide 26, Anion Gap 8.6, BUN 9 D, Creatinine 0.60, Estimated Creat Clear 98, Estimated GFR 114, Est GFR ( Amer) 138, Glucose 100, Calcium 8.5 I & O for Last 24 hours: Intake & Output 10/19/21 10/20/21 10/21/21 10/22/21 11:59 11:59 11:59 11:59 Intake Total 2082 / 1979 2610 / 2610 Output Total 300 / 300 400 / 400 Balance 1783 / 1783 1580 / 1580 2610 / 2610 Weight 119 lb 14.903 oz 105 lb 104 lb 15.993 oz Microbiology Reports for the Last 24 Hours: Microbiology 10/19/21 20:32 Blood Blood Culture - Preliminary 10/19/21 20:32 Blood Blood Culture - Preliminary Gram Negative Rods 10/19/21 20:19 Urine,Clean Catch Urine Culture - Final Escherichia coli - Constitutional no acute distress - *Routine HEENT Exam Head: Present: normocephalic Eye: Present: PERRL ENT: Present: mucous membranes moist - *Routine Neck Exam Present: supple. Absent: lymphadenopathy - *Routine Respiratory Exam Present: CTA bilaterally - *Routine Cardiovascular Exam Present: RRR - *Routine Abdominal Exam Present: soft, normoactive bowel sounds. Absent: tenderness - *Routine Extremities Exam Absent: cyanosis, clubbing, edema - *Routine Skin Exam Present: warm. Absent: rash - *Routine Neurological Exam Present: alert, oriented X3 Assessment and Plan (1) Amphetamine abuse Status: Acute Category: Medical Code(s): F15.10 - Other stimulant abuse, uncomplicated (2) IVDU (intravenous drug user) Status: Acute Category: Social Hx Code(s): F19.90 - Other psychoactive substance use, unspecified, uncomplicated (3) Low body mass index (BMI) Status: Acute Category: Medical (4) Pyelonephritis Status: Acute Category: Medical Code(s): N12 - Tubulo-interstitial nephritis, not specified as acute or chronic (5) Septic embolism Status: Acute Category: Medical Code(s): I76 - Septic arterial embolism (6) Severe sepsis with acute organ dysfunction Status: Acute Category: Medical Code(s): A41.9 - Sepsis, unspecified organism; R65.20 - Severe sepsis without septic shock (7) Tobacco use Status: Acute Category: Social Hx Code(s): Z72.0 - Tobacco use - Assessment and plan all Dx Assessment and Plan for all problems:: rounded with dr macedo all orders per dr macedo drug screen covid swab change antibiotics
[2021-10-22 08:59] LABS: Coronavirus 19, PCR Not Detected (NotDetected); Influenza A, PCR Not Detected (NotDetected); Influenza B, PCR Not Detected (NotDetected)
--- NOTE | 2021-10-22 10:08 | PC.NURSE ---
Wrapped pt's IV she left the floor with her boyfriend to see her dogs. Iv was wrapped with janett crossed tegaderm, coband, and tape. IV did not seem tampered with when coming back onto the floor.
[2021-10-22 10:17] LABS: Barbiturates Screen,Urine Negative ng/ml (<200); Benzodiazepines Screen,Urine Negative ng/ml (<200)
[2021-10-22 10:19] LABS: Cocaine Screen,Urine Negative ng/ml (<300); Methadone Screen,Urine Negative ng/ml (<300)
[2021-10-22 10:20] LABS: Cannabinoid Screen,Urine Negative ng/ml (<50)
[2021-10-22 10:21] LABS: Opiate Screen,Urine Negative ng/ml (<300); Phencyclidine Screen,Urine Negative ng/ml (<25)
--- NOTE | 2021-10-22 10:26 | CT_ITS ---
FINAL REPORT TECHNIQUE: Thin section axial images were obtained from the thoracic inlet through the upper abdomen after intravenous contrast injection. Reconstruction images were obtained from the axial data. Exam was performed using dose reduction technique. CLINICAL HISTORY: cough, congestion, SMOKER, IV DRUG USER COMPARISON: None. FINDINGS: There is no mediastinal, hilar, or axillary lymphadenopathy. There are 2 small 5 mm subpleural right lower lobe pulmonary nodules. These are seen on images 44 and 55. The lungs are otherwise clear. There is no pleural or pericardial effusion. Soft tissues are within normal limits. Limited evaluation of the upper abdomen reveals interval increase in size in a hypodense lesion in the upper pole of the left kidney which is not a cyst. Developing renal abscess is not excluded. There is no acute osseous abnormality. IMPRESSION: No acute intrathoracic abnormality. 5 mm right lower lobe pulmonary nodules. These are favored to be postinfectious or inflammatory. Consider follow-up chest CT in one-year. Interval increase in size in a hypodensity in the upper pole of the left kidney. Given findings of possible pyelonephritis on prior exam, developing abscess a consideration. Recommend continued follow-up. Authenticated by Meche Arboleda MD on 10/22/2021 12:05:50 PM [facility]
--- NOTE | 2021-10-22 10:28 | PC.NURSE ---
Called Elizabeth in RAD to let her know about chest ct w/ contrast
[2021-10-22 10:55] LABS: Amphetamine/Metha Screen,Urine Positive ng/ml (<1000)
--- NOTE | 2021-10-22 12:50 | PC.NURSE ---
Called and spoke with No about pts tox screen. She stated that we need to keep pt on floor until she decides if we can revoke sign release form or not.
[2021-10-22 15:47] VITALS: BP 115/66; PULSE 84; RESP 16; TEMP 37.1; O2SAT 98
[2021-10-22 20:00] VITALS: BP 126/78; PULSE 68; RESP 16; TEMP 36.7; O2SAT 98
[2021-10-23 04:00] VITALS: BP 118/64; PULSE 68; RESP 16; TEMP 36.7; O2SAT 98
--- NOTE | 2021-10-23 04:34 | PC.NURSE ---
Patient rested throughout shift. Patient is A/O x3, can ambulate to bathroom independently. No complaints nor pain noted by patient. Patient still awaiting a bed at . IV ABX administered per JUL.
[2021-10-23 05:57] VITALS: BMI 15.9
[2021-10-23 06:21] LABS: Basophils # 0.1 K/mm3 (0-0.2); Basophils % 1.1 % (0.1-2.0); Eosinophils # 0.1 K/mm3 (0.0-0.4); Eosinophils % 2.3 % (0.1-12.0); Hemoglobin 14.5 g/dL (12.2-16.2); Lymphocytes # 1.3 K/mm3 (0.7-4.5); Lymphocytes % 22.7 % (10-50); Mean Corpuscular HGB Conc 33.7 g/dL (31.8-35.4); Mean Corpuscular Hemoglobin 30.6 pg (27.0-31.2); Mean Corpuscular Volume 90.8 fl (81-99); Mean Platelet Volume 8.5 fl (7.4-10.4); Monocytes # 0.7 K/mm3 (0.1-1.0); Monocytes % 11.4 % (1.7-9.3); Neutrophils # 3.7 K/mm3 (1.8-7.8); Neutrophils % 62.5 % (37.0-80.0); Platelet Count 227 K/mm3 (142-424); Red Blood Count 4.74 M/mm3 (4.20-5.40); Red Cell Distribution Width 13.6 % (11.5-17.5); White Blood Count 5.9 K/mm3 (4.8-10.8)
[2021-10-23 06:30] LABS: Anion Gap 10.1 mEq/L (5-15); Blood Urea Nitrogen 15 mg/dl (7-17); Calcium 8.8 mg/dl (8.4-10.2); Carbon Dioxide 28 mmol/L (22.0-30.0); Chloride 103 mmol/L (98-107); Creatinine Clearance Estimated 84 mL/min (50-200); Estimated Glomerular Filt Rate 95 ml/min (>60); GFR (African American) 115 ML/MIN (>60); Glucose 100 mg/dl (74-100); Potassium 4.1 mmoL/L (3.5-5.1); Sodium 137 mmol/L (136-145)
[2021-10-23 08:00] VITALS: BP 115/70; PULSE 97; RESP 18; TEMP 36.8; O2SAT 100
--- NOTE | 2021-10-23 12:15 | HMH.ACPN2 ---
Internal Medicine - PN: Subj *Date: 10/23/21 *Time: 12:15 Interval history: Patient relays an uneventful night. Blood and urine cultures growing out pansensitive E. coli. Imaging is reviewed. Toxicology is revd. Pt is on a waiting list at for presumed septic emboli Exam Vital signs and Labs for Last 24 Hours: Temp Pulse Resp BP Pulse Ox 98.3 F 97 H 18 115/70 100 10/23/21 08:00 10/23/21 08:00 10/23/21 08:00 10/23/21 08:00 10/23/21 08:00 Laboratory Results - last 24 hr 10/23/21 06:02: WBC 5.9, RBC 4.74, Hgb 14.5, Hct 43.0, MCV 90.8, MCH 30.6, MCHC 33.7, RDW 13.6, Plt Count 227, MPV 8.5, Neut % (Auto) 62.5, Lymph % (Auto) 22.7, [place] % (Auto) 11.4 H, Eos % (Auto) 2.3, Baso % (Auto) 1.1, Neut # (Auto) 3.7, Lymph # (Auto) 1.3, [place] # (Auto) 0.7, Eos # (Auto) 0.1, Baso # (Auto) 0.1 10/23/21 06:02: Sodium 137, Potassium 4.1, Chloride 103, Carbon Dioxide 28, Anion Gap 10.1, BUN 15 D, Creatinine 0.70, Estimated Creat Clear 84, Estimated GFR 95, Est GFR ( Amer) 115, Glucose 100, Calcium 8.8 I & O for Last 24 hours: Intake & Output 10/20/21 10/21/21 10/22/21 10/23/21 23:59 23:59 23:59 23:59 Intake Total 2863 / 2863 3810 / 3810 360 / 360 60 / 60 Output Total 700 / 700 Balance 2163 / 2163 3810 / 3810 360 / 360 60 / 60 Weight 119 lb 14.903 oz 105 lb 104 lb 15.993 oz 105 lb 1.6 oz Microbiology Reports for the Last 24 Hours: Microbiology 10/19/21 20:32 Blood Blood Culture - Preliminary Gram Negative Rods 10/19/21 20:32 Blood Blood Culture - Preliminary Escherichia coli - Constitutional no acute distress - *Routine HEENT Exam Head: Present: normocephalic Eye: Present: EOMI, PERRL ENT: Present: mucous membranes moist - *Routine Neck Exam Present: supple. Absent: lymphadenopathy - *Routine Respiratory Exam Present: CTA bilaterally - *Routine Cardiovascular Exam Present: RRR - *Routine Abdominal Exam Present: tenderness. Absent: distended - *Routine Extremities Exam Absent: cyanosis, clubbing, edema - *Routine Skin Exam Present: warm. Absent: rash - *Routine Neurological Exam Present: alert, oriented X3 Assessment and Plan (1) Amphetamine abuse Status: Acute Category: Medical Code(s): F15.10 - Other stimulant abuse, uncomplicated (2) IVDU (intravenous drug user) Status: Acute Category: Social Hx Code(s): F19.90 - Other psychoactive substance use, unspecified, uncomplicated (3) Low body mass index (BMI) Status: Acute Category: Medical (4) Pyelonephritis Status: Acute Category: Medical Code(s): N12 - Tubulo-interstitial nephritis, not specified as acute or chronic (5) Septic embolism Status: Acute Category: Medical Code(s): I76 - Septic arterial embolism (6) Severe sepsis with acute organ dysfunction Status: Acute Category: Medical Code(s): A41.9 - Sepsis, unspecified organism; R65.20 - Severe sepsis without septic shock (7) Tobacco use Status: Acute Category: Social Hx Code(s): Z72.0 - Tobacco use - Assessment and plan all Dx Assessment and Plan for all problems:: continue iv antibiotics
[2021-10-23 16:00] VITALS: BP 121/90; PULSE 91; RESP 20; TEMP 37.1; O2SAT 100
[2021-10-23 20:00] VITALS: BP 116/68; PULSE 74; RESP 16; TEMP 36.6; O2SAT 93
--- NOTE | 2021-10-24 04:23 | PC.NURSE ---
No acute changes this shift. Pt has rested well. Pt voiced no c/o of pain throughout shift. Pt has ambulated independently to bathroom. Still awaiting bed at .
[2021-10-24 05:00] VITALS: BMI 15.9
[2021-10-24 08:00] VITALS: BP 108/52; PULSE 80; RESP 18; TEMP 36.9; O2SAT 100
[2021-10-24 08:21] LABS: Basophils # 0.1 K/mm3 (0-0.2); Basophils % 2.6 % (0.1-2.0); Eosinophils # 0.2 K/mm3 (0.0-0.4); Eosinophils % 3.4 % (0.1-12.0); Hematocrit 43.7 % (37.0-47.0); Hemoglobin 14.8 g/dL (12.2-16.2); Lymphocytes # 1.4 K/mm3 (0.7-4.5); Lymphocytes % 24.9 % (10-50); Mean Corpuscular HGB Conc 33.7 g/dL (31.8-35.4); Mean Corpuscular Hemoglobin 30.4 pg (27.0-31.2); Mean Corpuscular Volume 90.2 fl (81-99); Mean Platelet Volume 7.9 fl (7.4-10.4); Monocytes # 0.8 K/mm3 (0.1-1.0); Monocytes % 14.4 % (1.7-9.3); Neutrophils % 54.7 % (37.0-80.0); Platelet Count 265 K/mm3 (142-424); Red Blood Count 4.85 M/mm3 (4.20-5.40); Red Cell Distribution Width 13.6 % (11.5-17.5); White Blood Count 5.5 K/mm3 (4.8-10.8)
[2021-10-24 08:29] LABS: Anion Gap 12.7 mEq/L (5-15); Blood Urea Nitrogen 11 mg/dl (7-17); Carbon Dioxide 28 mmol/L (22.0-30.0); Chloride 102 mmol/L (98-107); Creatinine Clearance Estimated 118 mL/min (50-200); Estimated Glomerular Filt Rate 140 ml/min (>60); GFR (African American) 170 ML/MIN (>60); Glucose 132 mg/dl (74-100); Potassium 3.7 mmoL/L (3.5-5.1); Sodium 139 mmol/L (136-145)
--- NOTE | 2021-10-24 09:34 | HMH.ACPN ---
Internal Medicine - PN: Subj *Date: 10/24/21 *Time: 09:34 Exam Vital signs and Labs for Last 24 Hours: Temp Pulse Resp BP Pulse Ox 98.5 F 80 18 108/52 L 100 10/24/21 08:00 10/24/21 08:00 10/24/21 08:00 10/24/21 08:00 10/24/21 08:00 Laboratory Results - last 24 hr 10/24/21 07:30: WBC 5.5, RBC 4.85, Hgb 14.8, Hct 43.7, MCV 90.2, MCH 30.4, MCHC 33.7, RDW 13.6, Plt Count 265, MPV 7.9, Neut % (Auto) 54.7, Lymph % (Auto) 24.9, [place] % (Auto) 14.4 H, Eos % (Auto) 3.4, Baso % (Auto) 2.6 H, Neut # (Auto) 3.0, Lymph # (Auto) 1.4, [place] # (Auto) 0.8, Eos # (Auto) 0.2, Baso # (Auto) 0.1 10/24/21 07:30: Sodium 139, Potassium 3.7, Chloride 102, Carbon Dioxide 28, Anion Gap 12.7, BUN 11 D, Creatinine 0.50 L D, Estimated Creat Clear 118, Estimated GFR 140, Est GFR ( Amer) 170 D, Glucose 132 H, Calcium 9.0 I & O for Last 24 hours: Intake & Output 10/21/21 10/22/21 10/23/21 10/24/21 23:59 23:59 23:59 23:59 Intake Total 3810 / 3810 360 / 360 2480 / 2480 1374 / 1374 Balance 3810 / 3810 360 / 360 2480 / 2480 1374 / 1374 Weight 47.627 kg 47.627 kg 47.673 kg 47.718 kg Microbiology Reports for the Last 24 Hours: Microbiology 10/19/21 20:32 Blood Blood Culture - Preliminary Escherichia coli Assessment and Plan (1) Amphetamine abuse Status: Acute Category: Medical Code(s): F15.10 - Other stimulant abuse, uncomplicated (2) IVDU (intravenous drug user) Status: Acute Category: Social Hx Code(s): F19.90 - Other psychoactive substance use, unspecified, uncomplicated (3) Low body mass index (BMI) Status: Acute Category: Medical (4) Pyelonephritis Status: Acute Category: Medical Code(s): N12 - Tubulo-interstitial nephritis, not specified as acute or chronic (5) Septic embolism Status: Acute Category: Medical Code(s): I76 - Septic arterial embolism (6) Severe sepsis with acute organ dysfunction Status: Acute Category: Medical Code(s): A41.9 - Sepsis, unspecified organism; R65.20 - Severe sepsis without septic shock (7) Tobacco use Status: Acute Category: Social Hx Code(s): Z72.0 - Tobacco use The patient's infection will respond to the chosen ABx?: Yes Is the patient receiving the right drug, dose, and route?: Yes Could a more targeted ABx be ordered?: No (KLEBSIELLA IN BLOOD/URINE SENSITIVE TO CEFEPIME)
--- NOTE | 2021-10-24 10:40 | P.PN_ITS ---
Internal Medicine - PN: Subj *Date: 10/25/21 *Time: 10:07 Interval history: feels better but still with sweats Exam Vital signs and Labs for Last 24 Hours: Temp Pulse Resp BP Pulse Ox 98.5 F 80 18 108/52 L 100 10/24/21 08:00 10/24/21 08:00 10/24/21 08:00 10/24/21 08:00 10/24/21 08:00 Laboratory Results - last 24 hr 10/24/21 07:30: WBC 5.5, RBC 4.85, Hgb 14.8, Hct 43.7, MCV 90.2, MCH 30.4, MCHC 33.7, RDW 13.6, Plt Count 265, MPV 7.9, Neut % (Auto) 54.7, Lymph % (Auto) 24.9, [place] % (Auto) 14.4 H, Eos % (Auto) 3.4, Baso % (Auto) 2.6 H, Neut # (Auto) 3.0, Lymph # (Auto) 1.4, [place] # (Auto) 0.8, Eos # (Auto) 0.2, Baso # (Auto) 0.1 10/24/21 07:30: Sodium 139, Potassium 3.7, Chloride 102, Carbon Dioxide 28, Anion Gap 12.7, BUN 11 D, Creatinine 0.50 L D, Estimated Creat Clear 118, Estimated GFR 140, Est GFR ( Amer) 170 D, Glucose 132 H, Calcium 9.0 I & O for Last 24 hours: Intake & Output 10/21/21 10/22/21 10/23/21 10/24/21 11:59 11:59 11:59 11:59 Intake Total 1979 / 1979 2610 / 2610 420 / 420 3794 / 3794 Output Total 400 / 400 Balance 1580 / 1580 2610 / 2610 420 / 420 3794 / 3794 Weight 105 lb 104 lb 15.993 oz 105 lb 1.6 oz 105 lb 3.2 oz Microbiology Reports for the Last 24 Hours: Microbiology 10/19/21 20:32 Blood Blood Culture - Preliminary Escherichia coli - Constitutional no acute distress, thin - *Routine HEENT Exam Head: Present: normocephalic Eye: Present: EOMI, PERRL ENT: Present: mucous membranes dry - *Routine Neck Exam Present: supple. Absent: JVD - *Routine Respiratory Exam Present: CTA bilaterally - *Routine Cardiovascular Exam Present: RRR. Absent: murmur - *Routine Abdominal Exam Present: soft - *Routine Extremities Exam Absent: calf tenderness - *Routine Skin Exam Present: intact - *Routine Neurological Exam Present: alert, CN II-XII intact - Routine Psychiatric Exam Present: cooperative Assessment and Plan (1) Amphetamine abuse Status: Acute Category: Medical Code(s): F15.10 - Other stimulant abuse, uncomplicated (2) IVDU (intravenous drug user) Status: Acute Category: Social Hx Code(s): F19.90 - Other psychoactive substance use, unspecified, uncomplicated (3) Low body mass index (BMI) Status: Acute Category: Medical (4) Pyelonephritis Status: Acute Category: Medical Code(s): N12 - Tubulo-interstitial nephritis, not specified as acute or chronic (5) Septic embolism Status: Acute Category: Medical Code(s): I76 - Septic arterial embolism (6) Severe sepsis with acute organ dysfunction Status: Acute Category: Medical Code(s): A41.9 - Sepsis, unspecified organism; R65.20 - Severe sepsis without septic shock (7) Tobacco use Status: Acute Category: Social Hx Code(s): Z72.0 - Tobacco use (8) E coli bacteremia Status: Acute Category: Medical Code(s): R78.81 - Bacteremia; B96.20 - Unspecified Escherichia coli [E. coli] as the cause of diseases classified elsewhere (9) E. coli UTI (urinary tract infection) Status: Acute Category: Medical Code(s): N39.0 - Urinary tract infection, site not specified; B96.20 - Unspecified Escherichia coli [E. coli] as the cause of diseases classified elsewhere
--- NOTE | 2021-10-24 10:41 | CT_ITS ---
PROCEDURE INFORMATION: Exam: CT Abdomen And Pelvis With Contrast Exam date and time: 10/24/2021 12:45 PM Age: 36 years old Clinical indication: Other: Renal abscess follow up TECHNIQUE: Imaging protocol: Computed tomography of the abdomen and pelvis with contrast. Radiation optimization: All CT scans at this facility use at least one of these dose optimization techniques: automated exposure control; mA and/or kV adjustment per patient size (includes targeted exams where dose is matched to clinical indication); or iterative reconstruction. Contrast material: ISOVUE; Contrast volume: 75 ml; Contrast route: IV; COMPARISON: CT ABDOMEN PELVIS W CON 10/19/2021 11:31 PM FINDINGS: Liver: Normal. No mass. Gallbladder and bile ducts: Normal. No calcified stones. No ductal dilation. Pancreas: Normal. No ductal dilation. Spleen: Normal. No splenomegaly. Adrenal glands: Normal. No mass. Kidneys and ureters: Ill-defined low attenuation within the anterior superior pole left renal cortex. Measures 2.6 x 2.8 cm. There is no evidence of drainable collection or significant perinephric stranding. Continued follow-up to resolution recommended. No hydronephrosis. Right kidney normal in appearance. Stomach and bowel: Unremarkable. No obstruction. No mucosal thickening. Appendix: No evidence of appendicitis. Intraperitoneal space: Unremarkable. No free air. No significant fluid collection. Vasculature: Unremarkable. No abdominal aortic aneurysm. Lymph nodes: Unremarkable. No enlarged lymph nodes. Urinary bladder: Unremarkable as visualized. Reproductive: Unremarkable as visualized. Bones/joints: Unremarkable. No acute fracture. Soft tissues: Unremarkable. IMPRESSION: Ill-defined low attenuation within the anterior superior pole left renal cortex. Measures 2.6 x 2.8 cm. There is no evidence of drainable collection or significant perinephric stranding. Continued follow-up to resolution recommended.
[2021-10-24 14:02] VITALS: O2SAT 100
--- NOTE | 2021-10-24 15:51 | PC.NURSE ---
Pt states she has felt better today. She has sat in her chair for meals, and taken a couple of naps. Her lung sounds have been clear, and bowel sounds active in all four quadrants. IV is patent and flushes well. VSS. No c/o of pain so far today.
[2021-10-24 16:00] VITALS: BP 104/59; PULSE 97; RESP 20; TEMP 36.9; O2SAT 99
[2021-10-24 20:00] VITALS: BP 115/64; PULSE 68; RESP 16; TEMP 36.6; O2SAT 96
--- NOTE | 2021-10-25 03:06 | PC.NURSE ---
Pt rested well throughout night. Pt voiced no complaints of pain this shift. Pt can ambulate independently to bathroom. Still awaiting a bed at for transfer.
[2021-10-25 03:45] VITALS: BP 117/69; PULSE 81; RESP 16; TEMP 37.1; O2SAT 99
[2021-10-25 04:39] VITALS: BMI 15.9
[2021-10-25 07:55] VITALS: BP 92/50; PULSE 78; RESP 20; TEMP 36.8; O2SAT 100
[2021-10-25 08:00] VITALS: O2SAT 100
--- NOTE | 2021-10-25 10:14 | HMH.DCSUM ---
General - General Admission date:: 10/20/21 Discharge date: 10/25/21 HPI HPI: 36 yr old female presented to ed for c/o body aches, fever,chills, and n/v x 1 week.pt admits to iv drug use 7 days ago. While in ed pt had Ct Abd/pelvis that showed Multifocal hypoenhancing lesions in the left renal cortex demonstrate mixed imaging features of both acute pyelonephritis and embolic infarcts vs parenchymal abscesses. Septic emboli could be a consideration in the appropriate clinical setting. [facility] was called and pt placed on transfer list waiting on bed. Pt was admitted due to IV drug use and fever with prob pyelo and possible septic emboli and sev sepsis with organ dysfunction. Will need iv antibiotics, urology consult and wait cx result while waiting for a bed for transfer to . Hospital Course Hospital Course: pt was admitted and has had slow but steady improvement on ivf and abx - pt had sepsis and e coli bacterima and e coli uti with pyelo on ct scan - pt was seen by urology - patient is a 36-year-old white female with a history of IV drug abuse. She presented to the emergency room yesterday with body aches, fever, chills and nausea vomiting x1 week. She admitted to IV drug use [address] scan of the abdomen pelvis showed multiple Hypo- enhancing lesions in the left kidney without evidence of obstruction. These imaging features were thought to be acute pyelonephritis and embolic infarcts versus parenchymal abscesses. Septic emboli is also a consideration. Patient's urinalysis on admission was positive for amphetamines and marijuana. There was 2+ bacteria. Her white count was 12,000 and her creatinine was 0.6. She is awaiting transfer to . She is currently on vancomycin for antibiotic coverage. Her urine culture is growing out E. coli which is pansensitive. Her white count has improved to 9.4 as of today. 4) Pyelonephritis Status: Acute Category: Medical Code(s): N12 - Tubulo-interstitial nephritis, not specified as acute or chronic 36-year-old white female with history of IV drug abuse presented with signs of sepsis. Her CT scan is suspicious for pyelonephritis with embolic infarcts versus abscess or septic emboli. She is hemodynamically stable and afebrile. Her CT scan was reviewed. There is no indication for a surgical management at this point. IV antibiotics and embolic work-up recommended. pt with continued improvement and was phillip activity and diet with no fever - chest ct and abd /pelvis ct showed no abscess - discussed with pt about drug rehab but patient was not interested at this time - discussed with patient need to finish meds and f/u with me to ensure completion of care Objective Vital signs: Temp Pulse Resp BP Pulse Ox 98.2 F 78 20 92/50 L 100 10/25/21 07:55 10/25/21 07:55 10/25/21 07:55 10/25/21 07:55 10/25/21 07:55 no acute distress, thin - *Routine HEENT Exam Head: Present: normocephalic Eye: Present: EOMI, PERRL ENT: Present: mucous membranes moist - *Routine Neck Exam Present: supple. Absent: JVD - *Routine Respiratory Exam Present: CTA bilaterally - *Routine Cardiovascular Exam Present: RRR. Absent: murmur - *Routine Abdominal Exam Present: soft. Absent: tenderness - *Routine Extremities Exam Absent: calf tenderness - Routine Back/Spine/Pelvis Exam Back/Spine: Absent: CVA tenderness, paraspinal tenderness - *Routine Skin Exam Present: intact - *Routine Neurological Exam Present: alert, oriented X3, CN II-XII intact. Absent: sensory deficit, motor deficit - Routine Psychiatric Exam Present: cooperative Results Labs on day of discharge: Preliminary micro results at discharge 10/19/21 20:32 Blood Culture - Preliminary Blood Escherichia coli 10/19/21 20:32 Blood Culture - Preliminary Blood Escherichia coli DS: Diagnosis - Discharge Diagnosis (1) Amphetamine abuse Status: Acute (2) IVDU (intravenous drug use
--- NOTE | 2021-10-28 12:06 | CARE MANAGER ---
Attempted follow up call from hospital discharge x 3. TANGELA Coto
== END 2021-10-25 11:20 | disposition home or self-care (01) | DRG 872 ==
LOC: ER 20:14 → 2ND 10-20 01:24
PROVIDERS: Nurse Practitioner Family; Admitting Provider Emergency Medicine; Emergency Provider Emergency Medicine; Visit Provider Emergency Medicine
DX: A41.51 Sepsis due to Escherichia coli [E. coli] (principal); N10 Acute pyelonephritis; I76 Septic arterial embolism; R65.20 Severe sepsis without septic shock; F15.10 Other stimulant abuse, uncomplicated; F17.210 Nicotine dependence, cigarettes, uncomplicated
CPT/HCPCS: 36415; 71046; 71260; 72126; 72129; 72132; 74177; 80048; 80053; 80202; 80305; 81001; 83605; 84145; 85007; 85025; 85651; 86140; 87040; 87077; 87086; 87088; 87186; 93306; 96375; 99285; C9803; J0692; J2405; J3370; Q9967; U0003; U0005

== ENCOUNTER → 2021-10-28 06:35 | Outpatient (CLI) | payer BC, SELFPAY | PROVIDERS: PCP Nurse Practitioner Family; Visit Provider Nurse Practitioner Family | DX: N39.0 Urinary tract infection, site not specified (principal); B96.20 Unspecified Escherichia coli [E. coli] as the cause of diseases classified elsewhere; A49.1 Streptococcal infection, unspecified site | CPT/HCPCS: 87086; 87088; 87186 ==

== ENCOUNTER 2022-05-23 19:33 | Emergency (ER) | payer BC, SELFPAY ==
[2022-05-23 19:33] VITALS: BP 120/60; PULSE 84; RESP 16; TEMP 36.9; O2SAT 100; BMI 17.9
[2022-05-23 20:19] VITALS: BMI 17.9
--- NOTE | 2022-05-23 20:20 | CT_ITS ---
PROCEDURE INFORMATION: Exam: CT Abdomen And Pelvis With Contrast Exam date and time: 05/23/2022 8:43 PM Age: 36 years old Clinical indication: Abdominal pain; Generalized; Prior surgery; Surgery date: 6+ months; Surgery type: Partial hysterectomy, tubal ligation. ; Additional info: Abd pain TECHNIQUE: Imaging protocol: Computed tomography of the abdomen and pelvis with contrast. Radiation optimization: All CT scans at this facility use at least one of these dose optimization techniques: automated exposure control; mA and/or kV adjustment per patient size (includes targeted exams where dose is matched to clinical indication); or iterative reconstruction. Contrast material: ISOVUE; Contrast volume: 75 ml; Contrast route: IV; COMPARISON: CT ABDOMEN PELVIS W CON 10/24/2021 12:45 PM FINDINGS: Liver: Normal. No mass. Gallbladder and bile ducts: No calcified stones. No ductal dilation. Pancreas: Normal enhancement. No ductal dilation. Spleen: No splenomegaly. Adrenal glands: No mass. Kidneys and ureters: No hydronephrosis. Stomach and bowel: Moderate to large stool burden within the colon. No bowel obstruction. Appendix: No evidence of appendicitis. Intraperitoneal space: Trace free fluid within the pelvis. Vasculature: No abdominal aortic aneurysm. Lymph nodes: No enlarged lymph nodes. Urinary bladder: No acute abnormality. Reproductive: No acute abnormality. Bones/joints: No acute fracture. Soft tissues: No soft tissue swelling. IMPRESSION: No acute findings.
[2022-05-23 20:26] LABS: Microscopic, Urine URINE MICROSCOPIC (MICROSCOPIC)
[2022-05-23 20:28] LABS: Appearance,Urine CLEAR (Clear); Bilirubin,Urine Negative (Negative); Blood, Urine Negative (Negative); Color,Urine YELLOW (Yellow); Glucose,Urine (UA) Negative (Negative); Ketones,Urine Negative (Negative); Leukocyte Esterase,Urine Negative (Negative); Nitrate,Urine Negative (Negative); PH,Urine 6.5 (5.0-8.5); Protein,Urine Negative (Negative); Specific Gravity, Urine 1.025 (1.005-1.030); Urobilinogen,Urine 0.2 EU/dl (0.2)
[2022-05-23 20:52] LABS: Squamous Epithelial Cell,Urine Occasional #/hpf (0-5); WBC,Urine Occasional #/hpf (0-3)
[2022-05-23 20:55] LABS: Basophils # 0.1 K/mm3 (0-0.2); Basophils % 1.8 % (0.1-2.0); Eosinophils # 0.5 K/mm3 (0.0-0.4); Eosinophils % 6.7 % (0.1-12.0); Hematocrit 41.3 % (37.0-47.0); Hemoglobin 13.5 g/dL (12.2-16.2); Lymphocytes # 2.8 K/mm3 (0.7-4.5); Lymphocytes % 40.7 % (10-50); Mean Corpuscular HGB Conc 32.8 g/dL (31.8-35.4); Mean Corpuscular Hemoglobin 29.8 pg (27.0-31.2); Mean Corpuscular Volume 90.9 fl (81-99); Mean Platelet Volume 9.3 fl (7.4-10.4); Monocytes # 0.5 K/mm3 (0.1-1.0); Monocytes % 7.4 % (1.7-9.3); Neutrophils % 43.5 % (37.0-80.0); Platelet Count 214 K/mm3 (142-424); Red Blood Count 4.54 M/mm3 (4.20-5.40); Red Cell Distribution Width 14.4 % (11.5-17.5); White Blood Count 6.8 K/mm3 (4.8-10.8)
[2022-05-23 21:01] LABS: Alanine Aminotransferase 97 U/L (12-78); Albumin Level 4.1 g/dl (3.5-5.0); Albumin/Globulin Ratio 1.6 (1.1-1.8); Alkaline Phosphatase 105 U/L (38-126); Amylase 77 U/L (30-110); Anion Gap 7.5 mEq/L (5-15); Aspartate Amino Transferase 64 U/L (14-36); Bilirubin,Total 0.3 mg/dl (0.2-1.3); Blood Urea Nitrogen 25 mg/dl (7-17); Calcium 9.5 mg/dl (8.4-10.2); Carbon Dioxide 32 mmol/L (22.0-30.0); Chloride 105 mmol/L (98-107); Creatinine Clearance Estimated 83 mL/min (50-200); Estimated Glomerular Filt Rate 82 ml/min (>60); GFR (African American) 99 ML/MIN (>60); Globulin 2.6 g/dL (1.3-3.2); Glucose 83 mg/dl (74-100); Lipase 91 U/L (23-300); Potassium 3.5 mmoL/L (3.5-5.1); Sodium 141 mmol/L (136-145); Total Protein,Serum 6.7 g/dl (6.3-8.2)
[2022-05-23 21:02] LABS: Lactic Acid 1.2 mmol/L (0.7-2.1)
[2022-05-23 21:07] LABS: C-Reactive Protein 0.4 mg/L (0-4)
--- NOTE | 2022-05-23 21:19 | HMH.EDABDPAI ---
Discharge Plan Disposition Patient Disposition: Home, Self-Care Chief Complaint: Abdominal Pain Prescriptions Prescriptions: No Action polyethylene glycol 3350 [Miralax] 17 gram/dose powder 17 g PO DAILY Qty: 238 0RF clindamycin HCl 300 mg capsule 300 mg PO Q8H 10 Days Qty: 30 0RF Referrals Follow up/Referrals: Provider,Referral, [Primary Care Provider] - See instructions Clinical Impressions Clinical Impression: Abdominal pain Instructions Patient Instructions: DI for Acute Abdominal Pain Discharge ED Provider: Gallito Adame Abdominal Pain HPI General Chief Complaint: Abdominal Pain Stated Complaint: abd pain/swelling Time Seen by Provider: 05/23/22 20:30 Mode of Arrival: Ambulatory Source of Information: Patient and Medical Record Limitations: No Limitations Description of Symptoms (Recalled from ER Triage Doc. by RN): pt states quit using iv meth 2 weeks ago and ever since has abd pain and swelling with n/v History of Present Illness HPI narrative: pt with concern about distended abd - has stopped ivdu - no vomiting or fever complaint: abdominal pain Onset (ago): day(s) Consistency: intermittent Severity: moderate Associated symptoms: denies other symptoms Related Data Previous Rx's Medication Instructions Recorded polyethylene glycol 3350 17 17 g PO DAILY #238 grams 10/27/21 gram/dose oral powder (Miralax) clindamycin HCl 300 mg capsule 300 mg PO Q8H 10 days #30 caps 11/03/21 Allergies Allergy/AdvReac Type Severity Reaction Status Date / Time Sulfa (Sulfonamide Allergy Verified 10/27/21 14:23 Antibiotics) [facility] Disclaimer: The information contained in this section may have been updated after the patient was seen, as this information can be updated by other users. Social History Smoking Status: Current every day smoker tobacco type: cigarettes packs per day: 1 alcohol intake: never substance use type: marijuana and methamphetamine current occupational status: unemployed Travel in the last 8 weeks: None household members: significant other housing: house caffeine: Yes ROS Obtained: Yes All systems reviewed & no additional complaints except as documented Physical Exam General General appearance: alert Head Head exam: normocephalic Eye Eye exam: Present PERRL and EOMI; Absent scleral icterus ENT ENT exam: Present mucous membranes moist Neck Neck exam: Present trachea midline Respiratory Respiratory exam: Present normal lung sounds bilaterally; Absent respiratory distress Cardiovascular Cardiovascular exam: Present regular rate; Absent systolic murmur or rubs Abdominal Exam Abdominal exam: Present soft and tenderness; Absent guarding, rebound or rigidity Abdominal tenderness: Present diffuse and mild Extremities Exam Extremities exam: Present full ROM; Absent calf tenderness Back Exam Back exam: Absent CVA tenderness (R) or CVA tenderness (L) Neurological Exam Neurological exam: Present alert, oriented X3 and CN II-XII intact; Absent motor sensory deficit Psychiatric Psychiatric exam: Present normal affect Skin Skin exam: Present rash Medical Decision Making Mike Inquiry Pt receiving controlled substance: No Vital Signs: 05/23/22 19:33 Temperature 98.5 F Temperature Source Oral Pulse Rate [Right] 84 Respiratory Rate 16 Blood Pressure [Right Arm] 120/60 Blood Pressure Mean [Right Arm] 80 02 Sat by Pulse Oximetry 100 Lab Data Lab Results 05/23/22 20:11: Urine Color Yellow, Urine Appearance Clear, Urine pH 6.5, Ur Specific Bryce 1.025, Urine Protein Negative, Urine Glucose (UA) Negative, Urine Ketones Negative, Urine Blood Negative, Urine Nitrate Negative, Urine Bilirubin Negative, Urine Urobilinogen 0.2, Ur Leukocyte Esterase Negative, Urine RBC None, Urine WBC Occasional, Ur Squamous Epith Cells Occasional, Urine Bacteria None 05/23/22 20:41: WBC 6.8, RBC 4.54, Hgb 13.5, Hct 41.3, MCV 90.9, MCH 29.8, MCH
[2022-05-23 21:20] LABS: Procalcitonin 0.059 ng/mL (0.0-2.0)
[2022-05-23 21:35] LABS: Erythrocyte Sedimentation Rate 12 mm/hr (0-20)
[2022-05-23 21:56] VITALS: BP 120/60; PULSE 78; RESP 18; TEMP 36.5; O2SAT 100
== END 2022-05-23 22:04 | disposition home or self-care (01) ==
PROVIDERS: Emergency Provider Emergency Medicine
DX: R10.9 Unspecified abdominal pain (principal); R11.2 Nausea with vomiting, unspecified; Z20.822 Contact with and (suspected) exposure to COVID-19; F17.210 Nicotine dependence, cigarettes, uncomplicated; Z88.2 Allergy status to sulfonamides
CPT/HCPCS: 74177; 80053; 81001; 82150; 83605; 83690; 84145; 85025; 85651; 86140; 87040; 96361; 96374; 96375; 99285; J2405; Q9967

== ENCOUNTER 2022-11-06 12:26 | Emergency (ER) | payer BC, SELFPAY ==
[2022-11-06 12:37] VITALS: BP 131/96; PULSE 84; RESP 18; O2SAT 100; BMI 17.0
--- NOTE | 2022-11-06 12:40 | HMH.EDGENADL ---
Discharge Plan Disposition Patient Disposition: Home, Self-Care Prescriptions Prescriptions: New epinephrine [EpiPen 2-Ronald] 0.3 mg/0.3 mL auto-injector 0.3 mg IM Q10M PRN (Reason: anaphylaxis) Qty: 2 0RF Rx Instructions: for 2 doses No Action permethrin [Elimite] 5 % cream 1 applic topical Q14D Qty: 60 0RF Rx Instructions: apply second treatment 14 days after first treatment if live lice remain prednisone 20 mg tablet 20 mg PO BID 5 Days Qty: 10 0RF Referrals Follow up/Referrals: Vinny Venegas APRN [Primary Care Provider] - See instructions Activity Restrictions/Add. Instructions Additional Instructions/Restrictions: Please administer epinephrine if you have a skin and mucosal or tongue involvement at the same time again. If you do use your EpiPen I would recommend you go to emergency department as quickly as possible. I would also advise that you follow-up with an nurse transplant to have allergy testing to see what is causing this reaction. If you have mild skin involvement and no tongue or breathing involvement you may try [id number] Benadryl as an alternate means if you do not want to use your epinephrine pen. Clinical Impressions Clinical Impression: Anaphylaxis Discharge ED Provider: Paulina Solitario General Adult HPI General Chief complaint: Allergic Reaction Stated complaint: Facial inflammation Time Seen by Provider: 11/06/22 12:40 History of Present Illness HPI narrative: Patient is a 37-year-old female presenting today with a rash that is now since resolved. She states this is intermittently happened to her over the years and she showed me some pictures of recently having some soft tissue swelling over the bridge of her nose her right and the left aspect of her forehead. These areas were itchy and came and went to different locations. Have since completely resolved. She has been on a course of steroids in the past for this prophylactically but nobody is ever given her an exact diagnosis. The most recent time that this happened she had some significant tongue swelling had difficulty speaking but did not having difficulty with respirations also had no other symptoms in any other organ system. Currently she has no symptoms but she is not sure how to proceed. She has a history of hepatitis C this been treated and is currently clean. Related Data Previous Rx's Medication Instructions Recorded permethrin 5 % topical cream 1 applic topical Q14D 2 doses #60 11/03/22 (Elimite) grams prednisone 20 mg tablet 20 mg PO BID 5 days #10 tabs 11/03/22 epinephrine 0.3 mg/0.3 mL 0.3 mg (0.3 mL) IM Q10M PRN 11/06/22 injection, auto-injector (EpiPen anaphylaxis #2 ea 2-Ronald) Allergies Allergy/AdvReac Type Severity Reaction Status Date / Time Sulfa (Sulfonamide Allergy Verified 11/03/22 10:58 Antibiotics) [facility] Disclaimer: The information contained in this section may have been updated after the patient was seen, as this information can be updated by other users. Social History Smoking Status: Current every day smoker tobacco type: cigarettes packs per day: 1 alcohol intake: never substance use type: marijuana and methamphetamine current occupational status: unemployed Travel in the last 8 weeks: None household members: significant other housing: house caffeine: Yes ROS Obtained: Yes All systems reviewed & no additional complaints except as documented Physical Exam General General appearance: alert Respiratory Respiratory exam: Present normal lung sounds bilaterally; Absent respiratory distress Cardiovascular Cardiovascular exam: Present regular rate; Absent tachycardia Neurological Exam Neurological exam: Present alert and oriented X3 Medical Decision Making Mike Inquiry Pt receiving controlled substance: No Vital Signs: 11/06/22 12:37 11/06/22 12:42 Temperature Source Oral Pulse Rate 75 Pulse Rate [Right Brachial] 84
[2022-11-06 12:42] VITALS: BP 146/86; PULSE 75; O2SAT 99
[2022-11-06 12:54] VITALS: BP 146/86; PULSE 84; RESP 18; TEMP 36.8; O2SAT 100
[2022-11-06 12:57] VITALS: BP 146/86; PULSE 84; RESP 18; TEMP 36.7
== END 2022-11-06 12:58 | disposition home or self-care (01) ==
PROVIDERS: Emergency Provider Student in an Organized Health Care Education/Training Program; PCP Nurse Practitioner Family
DX: T78.40XA Allergy, unspecified, initial encounter (principal); F17.210 Nicotine dependence, cigarettes, uncomplicated; L50.9 Urticaria, unspecified
CPT/HCPCS: 99283; 99284

== ENCOUNTER 2022-12-17 12:48 | Emergency (ER) | payer BC, SELFPAY ==
--- NOTE | 2022-12-17 12:55 | PC.NURSE ---
pt received two warm blankets
[2022-12-17 12:57] VITALS: BP 118/74; PULSE 55; RESP 16; TEMP 36.4; O2SAT 100; BMI 15.7
[2022-12-17 13:01] VITALS: BP 97/68; PULSE 61; O2SAT 100
[2022-12-17 13:30] VITALS: BP 97/57; PULSE 60; O2SAT 100
--- NOTE | 2022-12-17 13:31 | PC.NURSE ---
rounded on pt, no needs at this time
[2022-12-17 14:12] LABS: Basophils # 0.1 K/mm3 (0-0.2); Basophils % 0.6 % (0.1-2.0); Eosinophils # 0.3 K/mm3 (0.0-0.4); Eosinophils % 3.4 % (0.1-12.0); Hematocrit 49.4 % (37.0-47.0); Hemoglobin 15.9 g/dL (12.2-16.2); Lymphocytes # 1.6 K/mm3 (0.7-4.5); Lymphocytes % 18.8 % (10-50); Mean Corpuscular HGB Conc 32.1 g/dL (31.8-35.4); Mean Corpuscular Volume 90.3 fl (81-99); Mean Platelet Volume 9.1 fl (7.4-10.4); Monocytes # 0.4 K/mm3 (0.1-1.0); Monocytes % 4.4 % (1.7-9.3); Neutrophils # 6.3 K/mm3 (1.8-7.8); Neutrophils % 72.8 % (37.0-80.0); Platelet Count 227 K/mm3 (142-424); Red Blood Count 5.47 M/mm3 (4.20-5.40); Red Cell Distribution Width 13.9 % (11.5-17.5); White Blood Count 8.6 K/mm3 (4.8-10.8)
[2022-12-17 14:17] LABS: Alanine Aminotransferase 65 U/L (12-78); Albumin Level 4.2 g/dl (3.5-5.0); Albumin/Globulin Ratio 1.4 (1.1-1.8); Alkaline Phosphatase 108 U/L (38-126); Anion Gap 12.5 mEq/L (5-15); Aspartate Amino Transferase 46 U/L (14-36); Bilirubin,Total 0.3 mg/dl (0.2-1.3); Blood Urea Nitrogen 21 mg/dl (7-17); Carbon Dioxide 27 mmol/L (22.0-30.0); Chloride 105 mmol/L (98-107); Creatinine Clearance Estimated 83 mL/min (50-200); Estimated Glomerular Filt Rate 95 ml/min (>60); GFR (African American) 115 ML/MIN (>60); Globulin 2.9 g/dL (1.3-3.2); Glucose 130 mg/dl (74-100); Lipase 42 U/L (23-300); Potassium 4.5 mmoL/L (3.5-5.1); Sodium 140 mmol/L (136-145); Total Protein,Serum 7.1 g/dl (6.3-8.2)
[2022-12-17 14:19] LABS: Microscopic, Urine URINE MICROSCOPIC (MICROSCOPIC)
[2022-12-17 14:22] LABS: Appearance,Urine SL CLOUDY (Clear); Blood, Urine Negative (Negative); Color,Urine YELLOW (Yellow); Glucose,Urine (UA) Negative (Negative); Ketones,Urine TRACE (Negative); Leukocyte Esterase,Urine 1+ (Negative); Nitrate,Urine Negative (Negative); Protein,Urine TRACE (Negative); Specific Gravity, Urine 1.025 (1.005-1.030); Urobilinogen,Urine 0.2 EU/dl (0.2)
[2022-12-17 14:25] LABS: HCG Qualitative, Serum Negative (Negative)
[2022-12-17 14:28] LABS: Bilirubin,Urine 1+ (Negative)
[2022-12-17 14:34] LABS: Bacteria,Urine 1+ /lpf; RBC,Urine Occasional #/hpf (0-3)
[2022-12-17 14:47] VITALS: BP 97/64; PULSE 74; RESP 16; TEMP 36.7
--- NOTE | 2022-12-17 17:41 | HMH.EDGENADL ---
Discharge Plan Disposition Patient Disposition: Home, Self-Care Condition: Good Prescriptions Prescriptions: New ondansetron 4 mg tablet,disintegrating 4 mg PO Q6H PRN (Reason: nausea and vomiting) 7 Days Qty: 20 0RF No Action permethrin [Elimite] 5 % cream 1 applic topical Q14D Qty: 60 0RF Rx Instructions: apply second treatment 14 days after first treatment if live lice remain prednisone 20 mg tablet 20 mg PO BID 5 Days Qty: 10 0RF epinephrine [EpiPen 2-Ronald] 0.3 mg/0.3 mL auto-injector 0.3 mg IM Q10M PRN (Reason: anaphylaxis) Qty: 2 0RF Rx Instructions: for 2 doses Referrals Follow up/Referrals: Vinny Venegas APRN [Primary Care Provider] - See instructions Activity Restrictions/Add. Instructions Additional Instructions/Restrictions: Take the prescribed Zofran as directed, this will help with nausea and vomiting. Drink plenty of fluids. Monitor yourself for bloody diarrhea. If this happens, return to the emergency department. If your diarrhea persists for more than 5 days, you can also return to the emergency department for stool study. Follow-up with your primary care physician for reevaluation. Return to the emergency department with any other new or worsening symptoms. Clinical Impressions Clinical Impression: Gastritis, Nausea, vomiting and diarrhea Instructions Patient Instructions: DI for Diarrhea and Traveler's Diarrhea -- Adult, DI for Diarrhea and Traveler's Diarrhea -- Child, DI for Nausea -- Adult, DI for Nausea -- Child Discharge ED Provider: Angelica Huertas Adult HPI General Chief complaint: Nausea/Vomiting/Diarrhea Stated complaint: Vomiting, diarrhea Time Seen by Provider: 12/17/22 13:24 Mode of Arrival: Ambulatory Source of Information: Patient Limitations: No Limitations Description of Symptoms (Recalled from ER Triage Doc. by RN): 37 yo F presents to ED with c/o n/v/d. 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 pt reports that this am, she began to have n/v/d. pt also reports feeling hot and cold the past three days. History of Present Illness HPI narrative: This 37-year-old female presents to the emergency department with concerns of nausea, vomiting, diarrhea. Patient states she is detoxing from meth. She states in the past she has had infectious diarrhea, but does not believe that is the case at this time. She states it started this morning. She states she has had 1 dark stool today, but otherwise she has been nonbloody, nonbilious emesis, no bloody bowel movements. Review of systems otherwise negative Related Data Previous Rx's Medication Instructions Recorded permethrin 5 % topical cream 1 applic topical Q14D 2 doses #60 11/03/22 (Elimite) grams prednisone 20 mg tablet 20 mg PO BID 5 days #10 tabs 11/03/22 epinephrine 0.3 mg/0.3 mL 0.3 mg (0.3 mL) IM Q10M PRN 11/06/22 injection, auto-injector (EpiPen anaphylaxis #2 ea 2-Ronald) ondansetron 4 mg disintegrating 4 mg PO Q6H PRN nausea and 12/17/22 tablet vomiting 7 days #20 tabs Allergies Allergy/AdvReac Type Severity Reaction Status Date / Time Sulfa (Sulfonamide Allergy Verified 11/03/22 10:58 Antibiotics) [facility] Disclaimer: The information contained in this section may have been updated after the patient was seen, as this information can be updated by other users. Social History Smoking Status: Current every day smoker tobacco type: cigarettes packs per day: 1 alcohol intake: never substance use type: marijuana and methamphetamine current occupational status: unemployed Travel in the last 8 weeks: None household members: significant other housing: house caffeine: Yes ROS Obtained: Yes Systems reviewed as appropriate & no additional complaints except as documented Constitutional Constitutional: Denies chills, Denies fever(s), Denies headache(s) and Denies weakness Eyes Eyes: Denies change in vision ENT
== END 2022-12-17 14:49 | disposition home or self-care (01) ==
PROVIDERS: Emergency Provider Emergency Medicine; PCP Nurse Practitioner Family
DX: K29.70 Gastritis, unspecified, without bleeding (principal); F15.23 Other stimulant dependence with withdrawal; F17.210 Nicotine dependence, cigarettes, uncomplicated
CPT/HCPCS: 80053; 81001; 83690; 84703; 85025; 87086; 87088; 87186; 96361; 96374; 99285; J2405

== ENCOUNTER → 2023-03-22 06:35 | Outpatient (CLI) | payer BC, SELFPAY ==
[2023-03-22 21:59] LABS: Benzodiazepines Screen,Urine Negative ng/ml (<200)
[2023-03-22 22:00] LABS: Amphetamine/Metha Screen,Urine Negative ng/ml (<1000)
[2023-03-22 22:01] LABS: Barbiturates Screen,Urine Negative ng/ml (<200); Cannabinoid Screen,Urine Positive ng/ml (<50)
[2023-03-22 22:02] LABS: Cocaine Screen,Urine Negative ng/ml (<300); Methadone Screen,Urine Negative ng/ml (<300)
[2023-03-22 22:03] LABS: Opiate Screen,Urine Negative ng/ml (<300)
[2023-03-22 22:04] LABS: Phencyclidine Screen,Urine Negative ng/ml (<25)
[2023-03-24 21:08] LABS: Neisseria gonorrhoeae, NAA Negative (Negative)
[2023-03-27 09:15] LABS: HIV Screen 4th Generation wRfx Non Reactive
[2023-03-27 09:16] LABS: HSV 1 IgG, Type Spec 33.6; HSV 2 IgG, Type Spec <0.91
[2023-03-27 09:17] LABS: Rapid Plasma Reagin Ab Titer Non Reactive
== END ==
PROVIDERS: PCP Nurse Practitioner Family; Visit Provider Nurse Practitioner Family
DX: N89.8 Other specified noninflammatory disorders of vagina (principal); Z20.2 Contact with and (suspected) exposure to infections with a predominantly sexual mode of transmission; Z79.899 Other long term (current) drug therapy
CPT/HCPCS: 80305; 86593; 86695; 86703; 86790; 87210; 87491; 87591; G0432

== ENCOUNTER 2023-07-16 23:58 | Emergency (ER) | payer BC, SELFPAY ==
[2023-07-16 23:59] VITALS: BP 124/82; PULSE 84; RESP 20; TEMP 36.7; O2SAT 100; BMI 17.0
--- NOTE | 2023-07-17 00:05 | XR_ITS ---
PROCEDURE INFORMATION: Exam: XR Left Wrist Exam date and time: 07/17/2023 12:01 AM Age: 38 years old Clinical indication: Injury or trauma; Other: Struck by nail; Puncture; Wrist; Left; Additional info: Struck by nail in volar wrist TECHNIQUE: Imaging protocol: Radiologic exam of the left wrist. Views: 1 or 2 views. Total images: 2 COMPARISON: No relevant prior studies available. FINDINGS: Bones/joints: No acute fracture or joint dislocation. Carpal alignment is preserved. Joint spaces are maintained. No concerning bone lesions or calcifications. No significant degenerative arthropathy. Soft tissues: Nonspecific mild soft tissue swelling. IMPRESSION: 1. No acute osseous abnormality. 2. Mild soft tissue swelling.
[2023-07-17] MEDS: ACETAMINOPHEN 500MG TAB 1000 MG PO (00:23)
[2023-07-17] MEDS: KETOROLAC 30MG/ML VIAL 30 MG IV (00:23)
[2023-07-17] MEDS: METRONIDAZ/SOD CHL 500 MG/100 ML PIGGYBACK 100 MG IV (00:23)
[2023-07-17] MEDS: LIDOCAINE/PRILOCAINE 5GM TUBE 5 GM TP (00:26)
--- NOTE | 2023-07-17 00:32 | HMH.EDGENADL ---
Discharge Plan Disposition Patient Disposition: Home, Self-Care Prescriptions Prescriptions: New acetaminophen 500 mg tablet 1,000 mg PO Q6H PRN (Reason: pain) Qty: 120 0RF cephalexin 500 mg capsule 500 mg PO QID 7 Days Qty: 28 0RF ibuprofen 600 mg tablet 600 mg PO Q6H PRN (Reason: pain) Qty: 120 0RF Referrals Follow up/Referrals: Vinny Venegas APRN [Primary Care Provider] - See instructions Activity Restrictions/Add. Instructions Additional Instructions/Restrictions: Please follow-up with [facility] hand surgery team and Dr. Penny. They should be calling to schedule an appt within the next couple of days. Please take antibiotics as prescribed for prophylaxis of infection. Please keep wound covered and clean, ok to use soap and water. Please monitor for signs of infection. Please return to the emergency department if you develop any new or worsening symptoms or become concerned for your health. Clinical Impressions Clinical Impression: Left wrist pain Injury of wrist, left Qualifiers: Encounter type: initial encounter Qualified Code(s): S69.92XA - Unspecified injury of left wrist, hand and finger(s), initial encounter Discharge ED Provider: Holger Rizo General Adult HPI General Chief complaint: Extremity Injury, Upper Stated complaint: pain in left wrist Time Seen by Provider: 07/17/23 00:00 Mode of Arrival: Ambulatory Source of Information: Patient Limitations: No Limitations Description of Symptoms (Recalled from ER Triage Doc. by RN): Patient states that she slammed the underside of her wrist into a nail today. SHe is having pain and swelling. History of Present Illness HPI narrative: 38-year-old female with history of IV meth use, hepatitis C, presents with left wrist injury. She reports that she was demolishing a house and slammed her wrist on the palmar side into an exposed nail, nail approximately 2 inches long. She reports this happened at 3 PM, approximately 9 hours prior to arrival. She reports severe pain that has been worsening. She reports numbness over the thenar and hypothenar eminence, reports difficulty with movement of her fingers. She reports that she had a tetanus shot within the last 6 months. Related Data Previous Rx's Medication Instructions Recorded acetaminophen 500 mg tablet 1,000 mg PO Q6H PRN pain #120 tabs 07/17/23 cephalexin 500 mg capsule 500 mg PO QID 7 days #28 caps 07/17/23 ibuprofen 600 mg tablet 600 mg PO Q6H PRN pain #120 tabs 07/17/23 Allergies Allergy/AdvReac Type Severity Reaction Status Date / Time Sulfa (Sulfonamide Allergy Verified 03/22/23 15:06 Antibiotics) [facility] Disclaimer: The information contained in this section may have been updated after the patient was seen, as this information can be updated by other users. Medical History (Updated 07/17/23 @ 01:15 by Holger Rizo MD) Hepatitis C Social History Smoking Status: Current every day smoker tobacco type: cigarettes packs per day: 1 alcohol intake: never substance use type: marijuana and methamphetamine current occupational status: unemployed Travel in the last 8 weeks: None household members: significant other housing: house caffeine: Yes ROS Obtained: Yes All systems reviewed & no additional complaints except as documented Physical Exam General General appearance: alert Comment: Uncomfortable appearing Head Head exam: atraumatic and normocephalic Eye Eye exam: Present normal appearance, PERRL and EOMI ENT ENT exam: Present normal oropharynx and normal external ear exam Neck Neck exam: Present normal inspection and full ROM Chest Chest inspection: Present normal inspection and symmetric chest wall rise; Absent tenderness Respiratory Respiratory exam: Present normal lung sounds bilaterally; Absent respiratory distress Cardiovascular Cardiovascular exam: Present regular rate and normal rhythm Abdominal Exam Abdominal exam: Present soft; Absent distention, tenderness or guarding Extremities Exam Extremities exam: Present other (Left upper extremity: Wound over the volar wrist in the crease between the forearm and the palm. Patient reports abnormal sensation over the thenar and hypothenar eminence. pain with palpation of the third digit flexor tendon. unable to oppose thumb effectively. 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 Mike Inquiry Pt receiving controlled substance: No Mike was queried for this patient: No Vital Signs: 07/16/23 23:59 Temperature 98.0 F Temperature Source Oral Pulse Rate [Left Radial] 84 Respiratory Rate 20 Blood Pressure [Right Arm] 124/82 Blood Pressure Mean [Right Arm] 96 Blood Pressure Source [Right Arm] Automatic Cuff Blood Pressure Position [Right Arm] Sitting 02 Sat by Pulse Oximetry 100 Oxygen Delivery Method Room Air Lab Data Lab results reviewed: Yes I reviewed the patient's lab results. Orders (Tests/Meds): ED MEDICATIONS Discontinued Medications Generic Name Dose Route Start Last Admin Trade Name Freq PRN Reason Stop Dose Admin Acetaminophen 1,000 mg 07/17/23 00:14 07/17/23 00:23 Acetaminophen 500mg Tab PO 07/17/23 00:15 1,000 mg ONCE ONE Administration Cefazolin Sodium 2 gm 07/17/23 00:05 07/17/23 00:32 Cefazolin 2gm Vial IV 07/17/23 00:06 Not Given ONCE ONE Metronidazole 500 mg in 100 mls @ 100 mls/hr 07/17/23 00:05 07/17/23 00:23 Flagyl 500mg/100ml Ivpb IV 07/17/23 01:04 100 mls/hr ONCE ONE Administration Cefazolin Sodium 2 gm/ Sodium 100 mls @ 200 mls/hr 07/17/23 00:28 07/17/23 00:32 Chloride IV 07/17/23 00:57 Not Given ONCE ONE Cefazolin Sodium 2 gm/ Sodium 100 mls @ 200 mls/hr 07/17/23 00:30 07/17/23 00:47 Chloride IV 07/17/23 00:59 200 mls/hr ONCE ONE Administration Ketorolac Tromethamine 30 mg 07/17/23 00:14 07/17/23 00:23 Ketorolac 30mg/Ml Vial IV 07/17/23 00:15 30 mg ONCE ONE Administration Lidocaine/Prilocaine 5 gm 07/17/23 00:17 07/17/23 00:26 Lidocaine/Prilocaine 5gm Tube TP 07/17/23 00:18 5 gm ONCE ONE Administration ORDERS Category Date Time Status Wrist XR left 2 views [XR wrist LT 2V] Stat Exams 07/17/23 00:05 Completed Medical Decision Narrative: 38-year-old female with history of IV meth use, hepatitis C presents with injury to the left volar wrist after she was impaled by a nail while demolishing a house approximately 9 hours prior to arrival. History was obtained interactive discussion with patient. On arrival, patient is afebrile, hemodynamically stable, uncomfortable appearing., moving all extremities spontaneously. Full physical exam performed and significant for wound over the left volar wrist as discussed above, concern for median nerve injury and possible flexor tendon sheath violation. Differential includes but is not limited to open fracture, retained foreign body, flexor tendon injury, nerve injury Patient was given p.o. Tylenol, IV Toradol, 2 g IV cefazolin, 500 mg of IV Flagyl for possible contaminated open fracture. Workup initiated including radiographs of the left wrist. On re-evaluation, patient [remains afebrile, HD stable.] Imaging independently interpreted by me and significant for no fracture, no foreign body, no subcutaneous air. See radiology read for full review of final results. Given patient history, exam and workup, I am concerned that patient could a flexor tendon or median nerve injury and is at very high risk of developing an infection. Given this, I had an interactive discussion with the [facility] hand surgery team electrical controls technician. There is no indication at this time for exploratory surgery and patient has received appropriate IV antibiotic therapy. Therefore, the utility of transfer is limited. They recommended continuing oral antibiotic therapy until follow-up with the hand surgery team. The patient's information was given to the scheduling service and they will plan on making appointment for with Dr. Penny. I had an interactive discussion with patient regarding the plan, return precautions, wound care instructions, and antibiotic therapy. She was discharged with a prescription for Keflex as well as for Tylenol and ibuprofen for pain control. Procedures Risk/Benefits of Procedure(s) Were Explained: Yes Critical Care Critical Care Time Critical Care Time: No
--- NOTE | 2023-07-17 00:33 | PC.NURSE ---
contacting [facility] MDs for consult
[2023-07-17] MEDS: CEFAZOLIN SODIUM 2 GM in 0.9 % SODIUM CHLORIDE 100 ML IV (00:47)
--- NOTE | 2023-07-17 01:01 | PC.NURSE ---
on phone with KELVIN
[2023-07-17 01:24] VITALS: BP 100/53; PULSE 79; RESP 18; TEMP 36.6; O2SAT 99
== END 2023-07-17 01:25 | disposition home or self-care (01) ==
PROVIDERS: Emergency Provider Emergency Medicine; PCP Nurse Practitioner Family
DX: M25.532 Pain in left wrist (principal); S69.92XA Unspecified injury of left wrist, hand and finger(s), initial encounter; R20.0 Anesthesia of skin; B19.20 Unspecified viral hepatitis C without hepatic coma; F17.210 Nicotine dependence, cigarettes, uncomplicated; W26.8XXA Contact with other sharp object(s), not elsewhere classified, initial encounter
CPT/HCPCS: 73100; 96365; 96368; 96375; 99284

== ENCOUNTER 2024-01-08 19:50 | Observation (INO) | payer BC, SELFPAY ==
[2024-01-08 19:52] VITALS: BP 122/81; PULSE 86; RESP 21; TEMP 36.9; O2SAT 100; BMI 15.2
[2024-01-08 20:25] VITALS: BP 122/81; PULSE 86; RESP 21; TEMP 36.9; O2SAT 100
--- NOTE | 2024-01-08 20:42 | ED_ITS ---
<Statement entered by Elsie Boyd DO - 01/08/24 23:15> I was consulted by the MARION, and we discussed the complexity of the problems being addressed. I approved the treatment and management plan for this patient's care in the emergency department, thus performing a substantive portion of the medical decision making. I was personally involved in the patient's care and performed the critical care at the bedside in the setting of an acute anaphylactic reaction to medications administered. Please see MARION note for further documentation. Initially, this was felt to be red man syndrome, so rate was slowed, but then the patient developed diffuse urticarial rash, lip swelling, and oropharyngeal tingling. She also was wheezing on my exam and had decreasing blood pressures, though never truly hypotensive. She required epi x 2 as well as IV methylprednisolone, IV Pepcid, IV Benadryl. Epi drip was prepared with pain at the bedside, but patient did not require initiation of this. She was given a DuoNeb as well, as she was noted to be wheezing on exam. Elsie Boyd DO Discharge Plan Disposition Patient Disposition: Admitted Condition: Fair Clinical Impressions Clinical Impression: COVID-19, UTI (urinary tract infection), Tachyarrhythmia Anaphylaxis Qualifiers: Encounter type: initial encounter Qualified Code(s): T78.2XXA - Anaphylactic shock, unspecified, initial encounter Discharge ED Provider: Holger Rizo Adult HPI <HARINDER Borja - Last Filed: 01/08/24 23:10> General Chief complaint: Fever Stated complaint: head ache body pain sore throat Time Seen by Provider: 01/08/24 20:42 Mode of Arrival: Ambulatory Source of Information: Patient Limitations: No Limitations Description of Symptoms (Recalled from ER Triage Doc. by RN): Patient states her whole body hurts. States she has been having a headache for a couple days. Rates headache 10/10 and body aches 6/10. Reports she had a recent fever but denies knowing actual temp. States she just knew she had a fever. She reports the only medication she has taken was gabapentin 600mg to attempt to help with the pain but it did help her to be able to sleep. She reports a hx of hepatitis C. History of Present Illness HPI narrative: Patient presents for evaluation of myalgias malaise and low back pain. Patient reports that she has been having a headache for the last 2 days however today she began having subjective fever myalgias malaise and complaining of low lumbar back pain that does not radiate. Patient does have a history of IV drug use and last used methamphetamine last week. She denies shortness of breath cough change in mental status change in vision dizziness dysuria chills nausea vomiting or diarrhea Related Data Home Medications ?Medication ?Instructions ?Recorded ?Confirmed No Known Home Medications 01/08/24 01/08/24 Allergies Allergy/AdvReac Type Severity Reaction Status Date / Time vancomycin Allergy Severe Anaphylaxis Verified 01/09/24 00:08 Sulfa (Sulfonamide Allergy Verified 01/08/24 20:41 Antibiotics) [facility] <HARINDER Borja - Last Filed: 01/08/24 23:10> [facility] Disclaimer: The information contained in this section may have been updated after the patient was seen, as this information can be updated by other users. Medical History (Updated 01/09/24 @ 02:01 by Holger Rizo MD) Hepatitis C Social History (Updated 01/09/24 @ 01:31 by Mary Ellen Cazares RN) Smoking Status: Current every day smoker tobacco type: cigarettes packs per day: 1 alcohol intake: never substance use type: marijuana and methamphetamine current occupational status: unemployed Travel in the last 8 weeks: None household members: significant other housing: house caffeine: Yes <HARINDER Borja - Last Filed: 01/08/24 23:10> ROS Obtained: Yes Systems reviewed as appropriate & no additional complaints except as documented Physical Exam <HARINDER Borja - Last Filed: 01/08/24 23:10> General General appearance: alert and in no apparent distress Head Head exam: atraumatic Eye Eye exam: Present normal appearance and PERRL ENT ENT exam: Present normal exam and normal oropharynx Neck Neck exam: Present normal inspection and full ROM Chest Chest inspection: Present normal inspection; Absent tenderness Respiratory Respiratory exam: Present wheezes; Absent normal lung sounds bilaterally (She has some coarse breath sounds without rales or wheezes), respiratory distress or accessory muscle use Cardiovascular Cardiovascular exam: Present regular rate and normal rhythm Extremities Exam Extremities exam: Present normal inspection and full ROM Neurological Exam Neurological exam: Present alert and oriented X3 Medical Decision Making <HARINDER Borja - Last Filed: 01/08/24 23:10> Medical Records Medical records reviewed: Yes I reviewed the patient's medical records. Mike Inquiry Pt receiving controlled substance: No Vital Signs: 01/08/24 19:52 01/08/24 20:25 01/08/24 22:58 Temperature 98.4 F 98.4 F Temperature Source Oral Oral Pulse Rate 101 H Pulse Rate [Left] 86 86 Respiratory Rate 21 21 Blood Pressure Blood Pressure [Right Arm] 122/81 122/81 Blood Pressure Mean [Right Arm] 94 94 Blood Pressure Source Blood Pressure Source [Right Arm] Automatic Cuff Manual Cuff/ Auscultation Blood Pressure Position Blood Pressure Position [Right Arm] Sitting 02 Sat by Pulse Oximetry 100 100 Oxygen Delivery Method Room Air 01/08/24 22:58 01/09/24 01:55 Temperature 98.4 F Temperature Source Oral Pulse Rate 100 H 93 H Pulse Rate [Left] Respiratory Rate 16 Blood Pressure 106/65 L Blood Pressure [Right Arm] Blood Pressure Mean [Right Arm] Blood Pressure Source Automatic Cuff Blood Pressure Source [Right Arm] Blood Pressure Position Sitting Blood Pressure Position [Right Arm] 02 Sat by Pulse Oximetry Oxygen Delivery Method Room Air Lab Data Lab results reviewed: Yes I reviewed the patient's lab results. Lab Results 01/08/24 20:47: SARS-CoV-2 (PCR) Detected A, Influenza A Untype (PCR) Not detected, Influenza Type B (PCR) Not detected 01/08/24 21:02: WBC 3.6 L, RBC 4.84, Hgb 14.9, Hct 45.6, MCV 94.3, MCH 30.7, MCHC 32.6, RDW 14.1, Plt Count 166, MPV 9.0, Neut % (Auto) 63.9, Lymph % (Auto) 18.9, [place] % (Auto) 11.7 H, Eos % (Auto) 2.3, Baso % (Auto) 3.2 H, Neut # (Auto) 2.3, Lymph # (Auto) 0.7, [place] # (Auto) 0.4, Eos # (Auto) 0.1, Baso # (Auto) 0.1, ESR 13, PT 10.1, INR 0.89 L, Sodium 134 L, Potassium 4.0, Chloride 99, Carbon Dioxide 29, Anion Gap 10.0, BUN 9, Creatinine 0.70, Estimated Creat Clear 79, Estimated GFR 94, Est GFR ( Amer) 114, Glucose 81, Lactate 1.2, Calcium 9.4, Total Bilirubin 0.9, AST 54 H, ALT 56, Alkaline Phosphatase 80, Total Creatine Kinase 93, Troponin I < 0.01, C-Reactive Protein 0.9, Total Protein 7.8, Albumin 4.4, Globulin 3.4 H, Albumin/Globulin Ratio 1.3, Procalcitonin 0.067, Serum HCG, Qual Negative 01/08/24 21:06: Urine Color Yellow, Urine Appearance Clear, Urine pH 7.0, Ur Specific [place] 1.010, Urine Protein Negative, Urine Glucose (UA) Negative, Urine Ketones Negative, Urine Blood Negative, Urine Nitrate Negative, Urine Bilirubin Negative, Urine Urobilinogen 0.2, Ur Leukocyte Esterase Negative, Urine RBC 3-5, Urine WBC 3-5, Ur Squamous Epith Cells 5-10, Amorphous Sediment 3+, Urine Bacteria 2+ 01/08/24 23:45: Troponin I < 0.01 01/08/24 21:02 01/08/24 21:02 Orders (Tests/Meds): ED MEDICATIONS Generic Name Dose Route Start Last Admin Trade Name Freq PRN Reason Stop Dose Admin Acetaminophen 650 mg 01/09/24 01:29 Acetaminophen 325mg Tab PO 02/08/24 01:28 Q4HP PRN Fever or Mild Pain (1-3) Diphenhydramine HCl 25 mg 01/09/24 01:29 Diphenhydramine 50mg/Ml Vial IV 02/08/24 01:28 Q8 PRN Itching Piperacillin Sod/Tazobactam 50 mls @ 100 mls/hr 01/08/24 21:37 01/08/24 21:44 Sod 3.375 gm/ Sodium Chloride IV 01/08/24 22:06 100 mls/hr Q6H ONE Administration Sodium Chloride 1,000 mls @ 75 mls/hr 01/09/24 01:30 Sod Chlor 0.9% 1000ml Bag IV 02/08/24 01:29 .[id number] ACE Morphine Sulfate 2 mg 01/09/24 01:29 Morphine 2mg/Ml Syringe IV 02/08/24 01:28 Q2HP PRN Severe Pain (7-10) Nicotine 21 mg 01/09/24 01:29 Nicotine 21mg/24hr Patch TD 02/08/24 01:28 DAILYP PRN Nicotine Cravings Ondansetron HCl 4 mg 01/09/24 01:29 Ondansetron 4mg/2ml Vial IV 02/08/24 01:28 Q8HP PRN Nausea Pantoprazole Sodium 40 mg 01/09/24 21:00 Pantoprazole 40mg Vial IV 02/08/24 20:59 HS ACE Sodium Chloride 8 ml 01/08/24 22:42 Sodium Chloride 0.9% 10ml Vial IV 02/07/24 22:41 NEEDED PRN dilute pepcid Discontinued Medications Generic Name Dose Route Start Last Admin Trade Name Freq PRN Reason Stop Dose Admin Acetaminophen 1,000 mg 01/08/24 20:53 01/08/24 21:42 Acetaminophen 1,000mg/100ml Vial IV 01/08/24 20:54 1,000 mg ONCE ONE Administration Albuterol/Ipratropium 3 ml 01/08/24 22:42 01/08/24 22:58 Ipratropium/Albuterol 3 Ml Neb IH 01/08/24 22:43 3 ml ONCE ONE Administration Diphenhydramine HCl 50 mg 01/08/24 22:42 01/08/24 22:32 Diphenhydramine 50mg/Ml Vial IV 01/08/24 22:43 50 mg ONCE ONE Administration Epinephrine HCl 0.3 mg 01/08/24 22:31 01/08/24 22:35 Epinephrine 1 Mg/Ml Ampul IM 01/08/24 22:32 0.3 mg ONCE ONE Administration Epinephrine HCl 0.3 mg 01/08/24 22:42 01/08/24 22:45 Epinephrine 1 Mg/Ml Ampul IM 01/08/24 22:43 0.3 mg ONCE ONE Administration Famotidine 20 mg 01/08/24 22:42 01/08/24 23:41 Famotidine 20mg/2ml Vial IV 01/08/24 22:43 20 mg ONCE ONE Administration Lactated Ringer's 1,920 mls @ 960 mls/hr 01/08/24 20:53 01/08/24 21:43 Lactated Ringer's 1000 Ml Bag 30 ml/kg infuse over 2 hr (1920 ml) 01/08/24 22:52 960 mls/hr IV Administration .Q2H ONE Piperacillin Sod/Tazobactam 50 mls @ 100 mls/hr 01/08/24 21:09 01/08/24 21:38 Sod 3.375 gm/ Sodium Chloride IV 01/08/24 21:38 Not Given ONCE ONE Vancomycin HCl 1,000 mg/ 250 mls @ 125 mls/hr 01/08/24 21:30 01/08/24 21:44 Sodium Chloride IV 01/08/24 23:29 125 mls/hr ONCE ONE Administration Clindamycin Phosphate 600 mg in 50 mls @ 100 mls/hr 01/09/24 00:03 01/09/24 01:47 Clindamycin 600mg/50ml D5w Premix IV 01/09/24 00:32 100 mls/hr ONCE ONE Administration Iopamidol 145 ml 01/08/24 21:56 01/08/24 21:56 Iopamidol-370 (76%);100ml Bottle IV 01/08/24 21:57 145 ml ONCE ONE Administration Methylprednisolone Sodium Succinate 125 mg 01/08/24 22:42 01/08/24 22:33 Methylprednisolone Sod Succ 125mg Vial IV 01/08/24 22:43 125 mg ONCE ONE Administration Miscellaneous 1 each 01/08/24 21:15 01/08/24 21:17 Vancomycin Consult Request NOTAPPLIC 02/07/24 21:14 1 each CONSULT PHARMACY ACE Administration Ondansetron HCl 4 mg 01/08/24 20:53 01/08/24 21:43 Ondansetron 4mg/2ml Vial IV 01/08/24 20:54 4 mg ONCE ONE Administration Sodium Chloride 50 ml 01/08/24 21:56 01/08/24 21:57 0.9 % Sodium Chloride 50 Ml Vial IV 01/08/24 21:57 50 ml ONCE ONE Administration Sodium Chloride 10 ml 01/08/24 21:56 01/08/24 21:56 Sodium Chloride 0.9% 10ml Syr (Rad Only) IV 01/08/24 21:57 10 ml ONCE ONE Administration ORDERS Category Date Time Status CT abdomen pelvis w con Stat Cat Scan 01/08/24 21:[address] cervical spine wo/w con Stat Cat Scan 01/08/24 20:[address] head/brain wo con Stat Cat Scan 01/08/24 21:[address] lumbar spine wo/w con Stat Cat Scan 01/08/24 20:[address] thoracic spine wo/w con Stat Cat Scan 01/08/24 20:52 Completed CTA Chest [CT angio chest PE protocol] Stat Cat Scan 01/08/24 20:48 Completed CBC w/Auto Diff [Complete Blood Count Auto Diff] Stat Lab 01/08/24 21:02 Completed CK [Creatine Kinase] Stat Lab 01/08/24 21:02 Completed CMP [Comprehensive Metabolic Panel] Stat Lab 01/08/24 21:02 Completed CRP [C-Reactive Protein] Stat Lab 01/08/24 21:02 Completed ESR [Erythrocyte Sedimentation Rate] Stat Lab 01/08/24 21:02 Completed HCG Qualitative, Serum Stat Lab 01/08/24 21:02 Completed INR [Prothrombin Time INR] Stat Lab 01/08/24 21:02 Completed Lactic Acid Stat Lab 01/08/24 21:02 Completed Procalcitonin Stat Lab 01/08/24 21:02 Completed Rapid PCR Covid and Flu A/B Stat Lab 01/08/24 20:47 Completed Trop I [Troponin I] Stat Lab 01/08/24 21:02 Completed Troponin I Q3H Lab 01/08/24 23:45 Completed Troponin I Q3H Lab 01/09/24 02:54 Ordered UA [Urinalysis and Microscopic] Stat Lab 01/08/24 21:06 Completed Blood Culture Stat Micro 01/08/24 21:02 Received Urine Culture Stat Micro 01/08/24 21:06 Received Medical Decision Narrative: In summary patient is a 38-year-old female who presents to the emergency department for evaluation of malaise headache low back pain myalgias. Patient is hemodynamically stable upon arrival, afebrile. Physical exam is remarkable for nonreproducible headache without focal neurologic findings she does have tenderness to palpation in the bilateral sacrum but no midline tenderness or bony deformity noted. Breath sounds coarse but no wheezes or rhonchi noted. Differential diagnosis includes meningitis versus spinal discitis versus osteomyelitis versus spinal abscess versus viral or bacterial upper respiratory tract infection versus urinary tract infection etc. Initial workup will be conducted with hematologic labs CT scan of the head CT scan of the dorsal spine with and without contrast CT scan of the chest PE protocol CT of the abdomen pelvis with contrast urinalysis COVID test urine blood cultures. Initial interventions include crystalloid bolus Toradol Tyleno. l initial workup reviewed by me actually shows leukopenia with no shift and no lymphopenia. Upon repeat evaluation notified by nursing staff that patient had facial flushing. I went to personally assess the patient and she did have a red face initially no respiratory involvement no wheezing. She had received Zosyn already and had started the vancomycin infusion. I slow the rate from 125-50. Nursing staff went to reassess the patient and noticed that she had facial swelling facial tingling. Dr. Boyd assessed the patient and noticed wheals. At that point we stopped the vancomycin infusion and began anaphylactic treatment with Benadryl subcutaneous epinephrine H2 rosas Benadryl and fluid bolus. Patient had showed signs of defervescent's within 30 minutes and never had respiratory complaints although it was noted that she had some faint wheezing she never had desaturation or airway compromise. The patient was placed in observation status at 2230. Medical necessity for observational status is surgical reaction to vancomycin and administration of epinephrine. The patient was provided serial reevaluations continuous cardiac monitoring and pulse oximetry while awaiting results. Patient handed off to Dr. Rizo at 2300 hrs. to continue observation. <Elsie Boyd, DO - Last Filed: 01/08/24 23:16> Vital Signs: 01/08/24 19:52 01/08/24 20:25 01/08/24 22:58 Temperature 98.4 F 98.4 F Temperature Source Oral Oral Pulse Rate 101 H Pulse Rate [Left] 86 86 Respiratory Rate 21 21 Blood Pressure Blood Pressure [Right Arm] 122/81 122/81 Blood Pressure Mean [Right Arm] 94 94 Blood Pressure Source Blood Pressure Source [Right Arm] Automatic Cuff Manual Cuff/ Auscultation Blood Pressure Position Blood Pressure Position [Right Arm] Sitting 02 Sat by Pulse Oximetry 100 100 Oxygen Delivery Method Room Air 01/08/24 22:58 01/09/24 01:55 Temperature 98.4 F Temperature Source Oral Pulse Rate 100 H 93 H Pulse Rate [Left] Respiratory Rate 16 Blood Pressure 106/65 L Blood Pressure [Right Arm] Blood Pressure Mean [Right Arm] Blood Pressure Source Automatic Cuff Blood Pressure Source [Right Arm] Blood Pressure Position Sitting Blood Pressure Position [Right Arm] 02 Sat by Pulse Oximetry Oxygen Delivery Method Room Air Lab Data Lab Results 01/08/24 20:47: SARS-CoV-2 (PCR) Detected A, Influenza A Untype (PCR) Not detected, Influenza Type B (PCR) Not detected 01/08/24 21:02: WBC 3.6 L, RBC 4.84, Hgb 14.9, Hct 45.6, MCV 94.3, MCH 30.7, MCHC 32.6, RDW 14.1, Plt Count 166, MPV 9.0, Neut % (Auto) 63.9, Lymph % (Auto) 18.9, [place] % (Auto) 11.7 H, Eos % (Auto) 2.3, Baso % (Auto) 3.2 H, Neut # (Auto) 2.3, Lymph # (Auto) 0.7, [place] # (Auto) 0.4, Eos # (Auto) 0.1, Baso # (Auto) 0.1, ESR 13, PT 10.1, INR 0.89 L, Sodium 134 L, Potassium 4.0, Chloride 99, Carbon Dioxide 29, Anion Gap 10.0, BUN 9, Creatinine 0.70, Estimated Creat Clear 79, Estimated GFR 94, Est GFR ( Amer) 114, Glucose 81, Lactate 1.2, Calcium 9.4, Total Bilirubin 0.9, AST 54 H, ALT 56, Alkaline Phosphatase 80, Total Creatine Kinase 93, Troponin I < 0.01, C-Reactive Protein 0.9, Total Protein 7.8, Albumin 4.4, Globulin 3.4 H, Albumin/Globulin Ratio 1.3, Procalcitonin 0.067, Serum HCG, Qual Negative 01/08/24 21:06: Urine Color Yellow, Urine Appearance Clear, Urine pH 7.0, Ur Specific [place] 1.010, Urine Protein Negative, Urine Glucose (UA) Negative, Urine Ketones Negative, Urine Blood Negative, Urine Nitrate Negative, Urine Bilirubin Negative, Urine Urobilinogen 0.2, Ur Leukocyte Esterase Negative, Urine RBC 3-5, Urine WBC 3-5, Ur Squamous Epith Cells 5-10, Amorphous Sediment 3+, Urine Bacteria 2+ 01/08/24 23:45: Troponin I < 0.01 Orders (Tests/Meds): ED MEDICATIONS Generic Name Dose Route Start Last Admin Trade Name Freq PRN Reason Stop Dose Admin Acetaminophen 650 mg 01/09/24 01:29 Acetaminophen 325mg Tab PO 02/08/24 01:28 Q4HP PRN Fever or Mild Pain (1-3) Diphenhydramine HCl 25 mg 01/09/24 01:29 Diphenhydramine 50mg/Ml Vial IV 02/08/24 01:28 Q8 PRN Itching Piperacillin Sod/Tazobactam 50 mls @ 100 mls/hr 01/08/24 21:37 01/08/24 21:44 Sod 3.375 gm/ Sodium Chloride IV 01/08/24 22:06 100 mls/hr Q6H ONE Administration Sodium Chloride 1,000 mls @ 75 mls/hr 01/09/24 01:30 Sod Chlor 0.9% 1000ml Bag IV 02/08/24 01:29 .[id number] ACE Morphine Sulfate 2 mg 01/09/24 01:29 Morphine 2mg/Ml Syringe IV 02/08/24 01:28 Q2HP PRN Severe Pain (7-10) Nicotine 21 mg 01/09/24 01:29 Nicotine 21mg/24hr Patch TD 02/08/24 01:28 DAILYP PRN Nicotine Cravings Ondansetron HCl 4 mg 01/09/24 01:29 Ondansetron 4mg/2ml Vial IV 02/08/24 01:28 Q8HP PRN Nausea Pantoprazole Sodium 40 mg 01/09/24 21:00 Pantoprazole 40mg Vial IV 02/08/24 20:59 HS ACE Sodium Chloride 8 ml 01/08/24 22:42 Sodium Chloride 0.9% 10ml Vial IV 02/07/24 22:41 NEEDED PRN dilute pepcid Discontinued Medications Generic Name Dose Route Start Last Admin Trade Name Freq PRN Reason Stop Dose Admin Acetaminophen 1,000 mg 01/08/24 20:53 01/08/24 21:42 Acetaminophen 1,000mg/100ml Vial IV 01/08/24 20:54 1,000 mg ONCE ONE Administration Albuterol/Ipratropium 3 ml 01/08/24 22:42 01/08/24 22:58 Ipratropium/Albuterol 3 Ml Neb 01/08/24 22:43 3 ml ONCE ONE Administration Diphenhydramine HCl 50 mg 01/08/24 22:42 01/08/24 22:32 Diphenhydramine 50mg/Ml Vial IV 01/08/24 22:43 50 mg ONCE ONE Administration Epinephrine HCl 0.3 mg 01/08/24 22:31 01/08/24 22:35 Epinephrine 1 Mg/Ml Ampul IM 01/08/24 22:32 0.3 mg ONCE ONE Administration Epinephrine HCl 0.3 mg 01/08/24 22:42 01/08/24 22:45 Epinephrine 1 Mg/Ml Ampul IM 01/08/24 22:43 0.3 mg ONCE ONE Administration Famotidine 20 mg 01/08/24 22:42 01/08/24 23:41 Famotidine 20mg/2ml Vial IV 01/08/24 22:43 20 mg ONCE ONE Administration Lactated Ringer's 1,920 mls @ 960 mls/hr 01/08/24 20:53 01/08/24 21:43 Lactated Ringer's 1000 Ml Bag 30 ml/kg infuse over 2 hr (1920 ml) 01/08/24 22:52 960 mls/hr IV Administration .Q2H ONE Piperacillin Sod/Tazobactam 50 mls @ 100 mls/hr 01/08/24 21:09 01/08/24 21:38 Sod 3.375 gm/ Sodium Chloride IV 01/08/24 21:38 Not Given ONCE ONE Vancomycin HCl 1,000 mg/ 250 mls @ 125 mls/hr 01/08/24 21:30 01/08/24 21:44 Sodium Chloride IV 01/08/24 23:29 125 mls/hr ONCE ONE Administration Clindamycin Phosphate 600 mg in 50 mls @ 100 mls/hr 01/09/24 00:03 01/09/24 01:47 Clindamycin 600mg/50ml D5w Premix IV 01/09/24 00:32 100 mls/hr ONCE ONE Administration Iopamidol 145 ml 01/08/24 21:56 01/08/24 21:56 Iopamidol-370 (76%);100ml Bottle IV 01/08/24 21:57 145 ml ONCE ONE Administration Methylprednisolone Sodium Succinate 125 mg 01/08/24 22:42 01/08/24 22:33 Methylprednisolone Sod Succ 125mg Vial IV 01/08/24 22:43 125 mg ONCE ONE Administration Miscellaneous 1 each 01/08/24 21:15 01/08/24 21:17 Vancomycin Consult Request NOTAPPLIC 02/07/24 21:14 1 each CONSULT PHARMACY ACE Administration Ondansetron HCl 4 mg 01/08/24 20:53 01/08/24 21:43 Ondansetron 4mg/2ml Vial IV 01/08/24 20:54 4 mg ONCE ONE Administration Sodium Chloride 50 ml 01/08/24 21:56 01/08/24 21:57 0.9 % Sodium Chloride 50 Ml Vial IV 01/08/24 21:57 50 ml ONCE ONE Administration Sodium Chloride 10 ml 01/08/24 21:56 01/08/24 21:56 Sodium Chloride 0.9% 10ml Syr (Rad Only) IV 01/08/24 21:57 10 ml ONCE ONE Administration ORDERS Category Date Time Status CT abdomen pelvis w con Stat Cat Scan 01/08/24 21:[address] cervical spine wo/w con Stat Cat Scan 01/08/24 20:[address] head/brain wo con Stat Cat Scan 01/08/24 21:[address] lumbar spine wo/w con Stat Cat Scan 01/08/24 20:[address] thoracic spine wo/w con Stat Cat Scan 01/08/24 20:52 Completed CTA Chest [CT angio chest PE protocol] Stat Cat Scan 01/08/24 20:48 Completed CBC w/Auto Diff [Complete Blood Count Auto Diff] Stat Lab 01/08/24 21:02 Completed CK [Creatine Kinase] Stat Lab 01/08/24 21:02 Completed CMP [Comprehensive Metabolic Panel] Stat Lab 01/08/24 21:02 Completed CRP [C-Reactive Protein] Stat Lab 01/08/24 21:02 Completed ESR [Erythrocyte Sedimentation Rate] Stat Lab 01/08/24 21:02 Completed HCG Qualitative, Serum Stat Lab 01/08/24 21:02 Completed INR [Prothrombin Time INR] Stat Lab 01/08/24 21:02 Completed Lactic Acid Stat Lab 01/08/24 21:02 Completed Procalcitonin Stat Lab 01/08/24 21:02 Completed Rapid PCR Covid and Flu A/B Stat Lab 01/08/24 20:47 Completed Trop I [Troponin I] Stat Lab 01/08/24 21:02 Completed Troponin I Q3H Lab 01/08/24 23:45 Completed Troponin I Q3H Lab 01/09/24 02:54 Ordered UA [Urinalysis and Microscopic] Stat Lab 01/08/24 21:06 Completed Blood Culture Stat Micro 01/08/24 21:02 Received Urine Culture Stat Micro 01/08/24 21:06 Received <Holger Rizo MD - Last Filed: 01/09/24 02:07> Vital Signs: 01/08/24 19:52 01/08/24 20:25 01/08/24 22:58 Temperature 98.4 F 98.4 F Temperature Source Oral Oral Pulse Rate 101 H Pulse Rate [Left] 86 86 Respiratory Rate 21 21 Blood Pressure Blood Pressure [Right Arm] 122/81 122/81 Blood Pressure Mean [Right Arm] 94 94 Blood Pressure Source Blood Pressure Source [Right Arm] Automatic Cuff Manual Cuff/ Auscultation Blood Pressure Position Blood Pressure Position [Right Arm] Sitting 02 Sat by Pulse Oximetry 100 100 Oxygen Delivery Method Room Air 01/08/24 22:58 01/09/24 01:55 Temperature 98.4 F Temperature Source Oral Pulse Rate 100 H 93 H Pulse Rate [Left] Respiratory Rate 16 Blood Pressure 106/65 L Blood Pressure [Right Arm] Blood Pressure Mean [Right Arm] Blood Pressure Source Automatic Cuff Blood Pressure Source [Right Arm] Blood Pressure Position Sitting Blood Pressure Position [Right Arm] 02 Sat by Pulse Oximetry Oxygen Delivery Method Room Air Lab Data Lab Results 01/08/24 20:47: SARS-CoV-2 (PCR) Detected A, Influenza A Untype (PCR) Not detected, Influenza Type B (PCR) Not detected 01/08/24 21:02: WBC 3.6 L, RBC 4.84, Hgb 14.9, Hct 45.6, MCV 94.3, MCH 30.7, MCHC 32.6, RDW 14.1, Plt Count 166, MPV 9.0, Neut % (Auto) 63.9, Lymph % (Auto) 18.9, [place] % (Auto) 11.7 H, Eos % (Auto) 2.3, Baso % (Auto) 3.2 H, Neut # (Auto) 2.3, Lymph # (Auto) 0.7, [place] # (Auto) 0.4, Eos # (Auto) 0.1, Baso # (Auto) 0.1, ESR 13, PT 10.1, INR 0.89 L, Sodium 134 L, Potassium 4.0, Chloride 99, Carbon Dioxide 29, Anion Gap 10.0, BUN 9, Creatinine 0.70, Estimated Creat Clear 79, Estimated GFR 94, Est GFR ( Amer) 114, Glucose 81, Lactate 1.2, Calcium 9.4, Total Bilirubin 0.9, AST 54 H, ALT 56, Alkaline Phosphatase 80, Total Creatine Kinase 93, Troponin I < 0.01, C-Reactive Protein 0.9, Total Protein 7.8, Albumin 4.4, Globulin 3.4 H, Albumin/Globulin Ratio 1.3, Procalcitonin 0.067, Serum HCG, Qual Negative 01/08/24 21:06: Urine Color Yellow, Urine Appearance Clear, Urine pH 7.0, Ur Specific [place] 1.010, Urine Protein Negative, Urine Glucose (UA) Negative, Urine Ketones Negative, Urine Blood Negative, Urine Nitrate Negative, Urine Bilirubin Negative, Urine Urobilinogen 0.2, Ur Leukocyte Esterase Negative, Urine RBC 3-5, Urine WBC 3-5, Ur Squamous Epith Cells 5-10, Amorphous Sediment 3+, Urine Bacteria 2+ 01/08/24 23:45: Troponin I < 0.01 Orders (Tests/Meds): ED MEDICATIONS Generic Name Dose Route Start Last Admin Trade Name Freq PRN Reason Stop Dose Admin Acetaminophen 650 mg 01/09/24 01:29 Acetaminophen 325mg Tab PO 02/08/24 01:28 Q4HP PRN Fever or Mild Pain (1-3) Diphenhydramine HCl 25 mg 01/09/24 01:29 Diphenhydramine 50mg/Ml Vial IV 02/08/24 01:28 Q8 PRN Itching Piperacillin Sod/Tazobactam 50 mls @ 100 mls/hr 01/08/24 21:37 01/08/24 21:44 Sod 3.375 gm/ Sodium Chloride IV 01/08/24 22:06 100 mls/hr Q6H ONE Administration Sodium Chloride 1,000 mls @ 75 mls/hr 01/09/24 01:30 Sod Chlor 0.9% 1000ml Bag IV 02/08/24 01:29 .[id number] ACE Morphine Sulfate 2 mg 01/09/24 01:29 Morphine 2mg/Ml Syringe IV 02/08/24 01:28 Q2HP PRN Severe Pain (7-10) Nicotine 21 mg 01/09/24 01:29 Nicotine 21mg/24hr Patch TD 02/08/24 01:28 DAILYP PRN Nicotine Cravings Ondansetron HCl 4 mg 01/09/24 01:29 Ondansetron 4mg/2ml Vial IV 02/08/24 01:28 Q8HP PRN Nausea Pantoprazole Sodium 40 mg 01/09/24 21:00 Pantoprazole 40mg Vial IV 02/08/24 20:59 HS ACE Sodium Chloride 8 ml 01/08/24 22:42 Sodium Chloride 0.9% 10ml Vial IV 02/07/24 22:41 NEEDED PRN dilute pepcid Discontinued Medications Generic Name Dose Route Start Last Admin Trade Name Freq PRN Reason Stop Dose Admin Acetaminophen 1,000 mg 01/08/24 20:53 01/08/24 21:42 Acetaminophen 1,000mg/100ml Vial IV 01/08/24 20:54 1,000 mg ONCE ONE Administration Albuterol/Ipratropium 3 ml 01/08/24 22:42 01/08/24 22:58 Ipratropium/Albuterol 3 Ml Neb IH 01/08/24 22:43 3 ml ONCE ONE Administration Diphenhydramine HCl 50 mg 01/08/24 22:42 01/08/24 22:32 Diphenhydramine 50mg/Ml Vial IV 01/08/24 22:43 50 mg ONCE ONE Administration Epinephrine HCl 0.3 mg 01/08/24 22:31 01/08/24 22:35 Epinephrine 1 Mg/Ml Ampul IM 01/08/24 22:32 0.3 mg ONCE ONE Administration Epinephrine HCl 0.3 mg 01/08/24 22:42 01/08/24 22:45 Epinephrine 1 Mg/Ml Ampul IM 01/08/24 22:43 0.3 mg ONCE ONE Administration Famotidine 20 mg 01/08/24 22:42 01/08/24 23:41 Famotidine 20mg/2ml Vial IV 01/08/24 22:43 20 mg ONCE ONE Administration Lactated Ringer's 1,920 mls @ 960 mls/hr 01/08/24 20:53 01/08/24 21:43 Lactated Ringer's 1000 Ml Bag 30 ml/kg infuse over 2 hr (1920 ml) 01/08/24 22:52 960 mls/hr IV Administration .Q2H ONE Piperacillin Sod/Tazobactam 50 mls @ 100 mls/hr 01/08/24 21:09 01/08/24 21:38 Sod 3.375 gm/ Sodium Chloride IV 01/08/24 21:38 Not Given ONCE ONE Vancomycin HCl 1,000 mg/ 250 mls @ 125 mls/hr 01/08/24 21:30 01/08/24 21:44 Sodium Chloride IV 01/08/24 23:29 125 mls/hr ONCE ONE Administration Clindamycin Phosphate 600 mg in 50 mls @ 100 mls/hr 01/09/24 00:03 01/09/24 01:47 Clindamycin 600mg/50ml D5w Premix IV 01/09/24 00:32 100 mls/hr ONCE ONE Administration Iopamidol 145 ml 01/08/24 21:56 01/08/24 21:56 Iopamidol-370 (76%);100ml Bottle IV 01/08/24 21:57 145 ml ONCE ONE Administration Methylprednisolone Sodium Succinate 125 mg 01/08/24 22:42 01/08/24 22:33 Methylprednisolone Sod Succ 125mg Vial IV 01/08/24 22:43 125 mg ONCE ONE Administration Miscellaneous 1 each 01/08/24 21:15 01/08/24 21:17 Vancomycin Consult Request NOTAPPLIC 02/07/24 21:14 1 each CONSULT PHARMACY ACE Administration Ondansetron HCl 4 mg 01/08/24 20:53 01/08/24 21:43 Ondansetron 4mg/2ml Vial IV 01/08/24 20:54 4 mg ONCE ONE Administration Sodium Chloride 50 ml 01/08/24 21:56 01/08/24 21:57 0.9 % Sodium Chloride 50 Ml Vial IV 01/08/24 21:57 50 ml ONCE ONE Administration Sodium Chloride 10 ml 01/08/24 21:56 01/08/24 21:56 Sodium Chloride 0.9% 10ml Syr (Rad Only) IV 01/08/24 21:57 10 ml ONCE ONE Administration ORDERS Category Date Time Status CT abdomen pelvis w con Stat Cat Scan 01/08/24 21:[address] cervical spine wo/w con Stat Cat Scan 01/08/24 20:[address] head/brain wo con Stat Cat Scan 01/08/24 21:[address] lumbar spine wo/w con Stat Cat Scan 01/08/24 20:[address] thoracic spine wo/w con Stat Cat Scan 01/08/24 20:52 Completed CTA Chest [CT angio chest PE protocol] Stat Cat Scan 01/08/24 20:48 Completed CBC w/Auto Diff [Complete Blood Count Auto Diff] Stat Lab 01/08/24 21:02 Completed CK [Creatine Kinase] Stat Lab 01/08/24 21:02 Completed CMP [Comprehensive Metabolic Panel] Stat Lab 01/08/24 21:02 Completed CRP [C-Reactive Protein] Stat Lab 01/08/24 21:02 Completed ESR [Erythrocyte Sedimentation Rate] Stat Lab 01/08/24 21:02 Completed HCG Qualitative, Serum Stat Lab 01/08/24 21:02 Completed INR [Prothrombin Time INR] Stat Lab 01/08/24 21:02 Completed Lactic Acid Stat Lab 01/08/24 21:02 Completed Procalcitonin Stat Lab 01/08/24 21:02 Completed Rapid PCR Covid and Flu A/B Stat Lab 01/08/24 20:47 Completed Trop I [Troponin I] Stat Lab 01/08/24 21:02 Completed Troponin I Q3H Lab 01/08/24 23:45 Completed Troponin I Q3H Lab 01/09/24 02:54 Ordered UA [Urinalysis and Microscopic] Stat Lab 01/08/24 21:06 Completed Blood Culture Stat Micro 01/08/24 21:02 Received Urine Culture Stat Micro 01/08/24 21:06 Received Medical Decision Narrative: In summary patient is a 38-year-old female who presents to the emergency department for evaluation of malaise headache low back pain myalgias. Patient is hemodynamically stable upon arrival, afebrile. Physical exam is remarkable for nonreproducible headache without focal neurologic findings she does have tenderness to palpation in the bilateral sacrum but no midline tenderness or bony deformity noted. Breath sounds coarse but no wheezes or rhonchi noted. Differential diagnosis includes meningitis versus spinal discitis versus osteomyelitis versus spinal abscess versus viral or bacterial upper respiratory tract infection versus urinary tract infection etc. Initial workup will be conducted with hematologic labs CT scan of the head CT scan of the dorsal spine with and without contrast CT scan of the chest PE protocol CT of the abdomen pelvis with contrast urinalysis COVID test urine blood cultures. Initial interventions include crystalloid bolus Toradol Tyleno. l initial workup reviewed by me actually shows leukopenia with no shift and no lymphopenia. Upon repeat evaluation notified by nursing staff that patient had facial flushing. I went to personally assess the patient and she did have a red face initially no respiratory involvement no wheezing. She had received Zosyn already and had started the vancomycin infusion. I slow the rate from 125-50. Nursing staff went to reassess the patient and noticed that she had facial swelling facial tingling. Dr. Boyd assessed the patient and noticed wheals. At that point we stopped the vancomycin infusion and began anaphylactic treatment with Benadryl subcutaneous epinephrine H2 rosas Benadryl and fluid bolus. Patient had showed signs of defervescent's within 30 minutes and never had respiratory complaints although it was noted that she had some faint wheezing she never had desaturation or airway compromise. The patient was placed in observation status at 2230. Medical necessity for observational status is anaphylaxis to vancomycin and administration of epinephrine. The patient was provided serial reevaluations continuous cardiac monitoring and pulse oximetry while awaiting results. Patient handed off to Dr. Rizo at 2300 hrs. to continue observation. Sallie JESSICA: I assumed care of the patient at the time of handoff from the prior provider. On continuous cardiac monitoring, patient has persistent tachydysrhythmia, varying from the 80s to the 140s. Blood pressure is stable. She was given clindamycin to cover for gram-positive bacteria/MRSA as she had a reaction to vancomycin that we do not carry linezolid or daptomycin at this hospital. CT imaging was independently interpreted by me and shows no evidence of osteomyelitis, septic pulmonary emboli etc. patient is drowsy but arousable at bedside. She reports that her back pain has gone. Taken in total, I think that her presentation is best explained by COVID and UTI. Based on her CT imaging and blood work, it does not appear that she has an invasive bacterial infection at this time. However, she is having persistent tachydysrhythmias in the setting of epinephrine given for anaphylaxis with a history of chronic methamphetamine abuse. Given this, I feel she would benefit from inpatient admission for continued cardiac monitoring. Interactive discussion was had with the hospitalist on-call for admission. I was consulted by the MARION, and we discussed the complexity of the problems being addressed. I approved the treatment and management plan for this patient?s care in the Emergency Department, thus performing a substantive portion of the medical decision making. Holger Rizo MD Critical Care <HARINDER Borja - Last Filed: 01/08/24 23:10> Critical Care Time Critical Care Time: Yes Attestation: On 01/08/24, the high probability of a clinically significant, sudden or life threatening deterioration of the following system(s) required my full and direct attention, intervention and personal management. The time I documented below is in addition to time spent performing reported procedures but includes the following listed in this critical care notation. Total Time Total Critical Care Time: 30 <Elsie Boyd DO - Last Filed: 01/08/24 23:16> Total Time Total Critical Care Time: 46
--- NOTE | 2024-01-08 20:48 | CT_ITS ---
PROCEDURE INFORMATION: Exam: CTA Chest With Contrast Exam date and time: 01/08/2024 9:57 PM Age: 38 years old Clinical indication: Fever; Additional info: Fever iv drug use TECHNIQUE: Imaging protocol: Computed tomographic angiography of the chest with contrast. Exam focused on the arteries. 3D rendering (Not supervised by radiologist): MIP and/or 3D reconstructed images were created by the technologist. Total images: 1025 Radiation optimization: All CT scans at this facility use at least one of these dose optimization techniques: automated exposure control; mA and/or kV adjustment per patient size (includes targeted exams where dose is matched to clinical indication); or iterative reconstruction. Contrast material: ISOVUE; Contrast volume: 70 ml; Contrast route: INTRAVENOUS (IV); COMPARISON: CT CHEST W CON 10/22/2021 11:21 AM FINDINGS: Pulmonary arteries: Adequate contrast opacification of the pulmonary arteries. The main pulmonary artery is normal in caliber. No acute pulmonary emboli. Aorta: No thoracic aortic aneurysm or dissection. Cardiac pulsation artifact in the ascending aorta. Two vessel aortic arch is a normal variant. Lungs: The trachea and main bronchi are patent. The lungs are clear and well expanded. There are stable benign juxtapleural right lower lobe 4-5 mm pulmonary nodules, unchanged from October 22, 2021 and requiring no follow-up. Pleural spaces: Unremarkable. No pneumothorax. No pleural effusion. Heart: Normal heart size. No pericardial effusion. Coronary arteries: No coronary artery calcifications. Lymph nodes: No mediastinal or hilar lymphadenopathy. Partially calcified left hilar lymph nodes. Intraperitoneal space: Upper abdominal findings described separately. Bones/joints: Unremarkable. No acute fracture. Soft tissues: Unremarkable. IMPRESSION: 1. No acute intrathoracic process. Specifically, no acute pulmonary emboli. 2. Clear lungs. 3. Stable benign right lower lobe juxtapleural micronodules. No follow-up required.
--- NOTE | 2024-01-08 20:52 | CT_ITS ---
PROCEDURE INFORMATION: Exam: CT Cervical Spine Without and With Contrast Exam date and time: 01/08/2024 9:47 PM Age: 38 years old Clinical indication: Other: Fever; Additional info: Fever iv drug use TECHNIQUE: Imaging protocol: Computed tomography of the cervical spine without and with contrast. Radiation optimization: All CT scans at this facility use at least one of these dose optimization techniques: automated exposure control; mA and/or kV adjustment per patient size (includes targeted exams where dose is matched to clinical indication); or iterative reconstruction. Contrast material: ISOVUE; Contrast volume: 75 ml; Contrast route: IV; COMPARISON: CT CERVICAL SPINE W CON 10/19/2021 9:44 PM FINDINGS: Bones: No acute fracture. Normal alignment. No significant disc bulge or herniation. No severe spinal canal stenosis. No significant neural foraminal narrowing. Lungs: Lung apices are normal. Soft tissues: No abnormal enhancing process. IMPRESSION: No acute findings.
--- NOTE | 2024-01-08 20:52 | CT_ITS ---
PROCEDURE INFORMATION: Exam: CT Thoracic Spine Without and With Contrast Exam date and time: 01/08/2024 9:47 PM Age: 38 years old Clinical indication: Other: Fever; Additional info: Fever, iv drug use TECHNIQUE: Imaging protocol: Computed tomography of the thoracic spine without and with contrast. Total images: 1783 Radiation optimization: All CT scans at this facility use at least one of these dose optimization techniques: automated exposure control; mA and/or kV adjustment per patient size (includes targeted exams where dose is matched to clinical indication); or iterative reconstruction. Contrast material: ISOVUE; Contrast volume: 75 ml; Contrast route: IV; COMPARISON: CT THORACIC SPINE W CON 10/19/2021 9:49 PM FINDINGS: Bones/joints: Thoracic vertebral body height and alignment is maintained. Disc spaces are appropriate for age. No concerning bone lesions. No evidence for discitis. Facet joints are appropriately aligned. Posterior elements are intact. No large disc herniation or spinal canal stenosis. Soft tissues: No paraspinal mass, fluid collection, or soft tissue edema. Other findings: Additional details can be found on chest CT report. IMPRESSION: Unremarkable CT of the thoracic spine.
--- NOTE | 2024-01-08 20:52 | CT_ITS ---
PROCEDURE INFORMATION: Exam: CT Lumbar Spine Without and With Contrast Exam date and time: 01/08/2024 9:47 PM Age: 38 years old Clinical indication: Other: Fever; Additional info: Fever iv drug use TECHNIQUE: Imaging protocol: Computed tomography of the lumbar spine without and with contrast. Total images: 1271 Radiation optimization: All CT scans at this facility use at least one of these dose optimization techniques: automated exposure control; mA and/or kV adjustment per patient size (includes targeted exams where dose is matched to clinical indication); or iterative reconstruction. Contrast material: ISOVUE; Contrast volume: 75 ml; Contrast route: IV; COMPARISON: CT LUMBAR SPINE W CON 10/19/2021 9:53 PM FINDINGS: Bones/joints: Five non rib-bearing lumbar vertebral segments. Vertebral body height and alignment is maintained. Facet joints are appropriately aligned. Posterior elements are intact. Unremarkable disc spaces. No concerning bone lesions. No discitis. No disc herniation, spinal canal stenosis, or neural foraminal encroachment. Vacuum phenomena bilateral SI joints. Soft tissues: No paraspinal soft tissue swelling, mass, or fluid collection. Other findings: Additional details can be found on separate CT abdomen and pelvis report. IMPRESSION: Unremarkable CT of the lumbar spine.
--- NOTE | 2024-01-08 21:03 | CT_ITS ---
PROCEDURE INFORMATION: Exam: CT Head Without Contrast Exam date and time: 01/08/2024 9:44 PM Age: 38 years old Clinical indication: Pain; Fever; Headache; Additional info: Fever, iv drug use TECHNIQUE: Imaging protocol: Computed tomography of the head without contrast. Radiation optimization: All CT scans at this facility use at least one of these dose optimization techniques: automated exposure control; mA and/or kV adjustment per patient size (includes targeted exams where dose is matched to clinical indication); or iterative reconstruction. COMPARISON: CT CERVICAL SPINE W CON 10/19/2021 9:44 PM FINDINGS: Brain: Normal. No hemorrhage. Unremarkable white matter. No mass effect. Cerebral ventricles: No ventriculomegaly. Paranasal sinuses: Visualized sinuses are unremarkable. No fluid levels. Mastoid air cells: Visualized mastoid air cells are well aerated. Bones: Unremarkable. No acute fracture. Soft tissues: Unremarkable. IMPRESSION: No acute intracranial abnormality.
--- NOTE | 2024-01-08 21:03 | CT_ITS ---
PROCEDURE INFORMATION: Exam: CT Abdomen And Pelvis With Contrast Exam date and time: 01/08/2024 9:57 PM Age: 38 years old Clinical indication: Fever; Additional info: Fever iv drug use TECHNIQUE: Imaging protocol: Computed tomography of the abdomen and pelvis with contrast. 3D rendering (Not supervised by radiologist): MIP and/or 3D reconstructed images were created by the technologist. Total images: 568 Radiation optimization: All CT scans at this facility use at least one of these dose optimization techniques: automated exposure control; mA and/or kV adjustment per patient size (includes targeted exams where dose is matched to clinical indication); or iterative reconstruction. Contrast material: ISOVUE; Contrast volume: 70 ml; Contrast route: IV; COMPARISON: CT ABDOMEN PELVIS W CON 05/23/2022 8:43 PM FINDINGS: Lungs: Lung bases are clear. Heart: Normal heart size. Liver: Slight decreased liver attenuation from phase of contrast versus steatosis. Otherwise, unremarkable liver. Gallbladder and biliary ducts: Normal. No calcified stones. No ductal dilation. Pancreas: Normal. No ductal dilation. Spleen: Normal. No splenomegaly. Adrenal glands: Normal. No mass. Kidneys and ureters: Symmetric contrast excretion from both kidneys would obscure renal calculi if present. No discrete renal mass or perinephric fluid. Stable 10 mm left renal cortical hypodensity is too small to characterize but statistically a cyst requiring no strict follow-up. Stomach and bowel: Unremarkable stomach. Fluid distended duodenum raising concern for superior mesenteric artery syndrome. No ileus or bowel obstruction. There are few distended fluid-filled segments of distal small bowel which may reflect a nonspecific enteritis. Moderate colonic stool burden. Collapsed rectum. Appendix: Normal appendix. Intraperitoneal space: Trace free pelvic fluid. Vasculature: The abdominal aorta is normal in caliber. Major abdominal vessels enhance appropriately. Retroaortic left renal vein is a normal variant. Narrow angle between the superior mesenteric artery and abdominal aorta. Lymph nodes: Unremarkable. No enlarged lymph nodes. Urinary bladder: Mild bladder wall thickening. Layering contrast in the bladder lumen. Reproductive: Unremarkable as visualized. Bones/joints: Unremarkable. No acute fracture. Soft tissues: Unremarkable. Other findings: Attenuation artifacts from arm positioning compromises detail. IMPRESSION: 1. Suspect acute nonspecific enteritis. No complicating features. 2. Suspect superior mesenteric artery syndrome with secondary fluid distension of the duodenum. 3. Trace free pelvic fluid considered physiologic. 4. Mild bladder wall thickening from incomplete distension versus cystitis. 5. Normal appendix. COMMENTS: Consistent with the [employer]'s Incidental Findings Committee white paper (J Am Daniel Radiol 2018): Any incidental renal lesion less than 1 cm or classified as too small to characterize, or any incidental cystic renal lesion characterized as simple-appearing, is likely benign. No follow-up imaging is recommended for these lesions per consensus recommendations based on imaging criteria.
[2024-01-08 21:10] LABS: Basophils # 0.1 K/mm3 (0-0.2); Basophils % 3.2 % (0.1-2.0); Eosinophils # 0.1 K/mm3 (0.0-0.4); Eosinophils % 2.3 % (0.1-12.0); Hematocrit 45.6 % (37.0-47.0); Hemoglobin 14.9 g/dL (12.2-16.2); Lymphocytes # 0.7 K/mm3 (0.7-4.5); Lymphocytes % 18.9 % (10-50); Mean Corpuscular HGB Conc 32.6 g/dL (31.8-35.4); Mean Corpuscular Hemoglobin 30.7 pg (27.0-31.2); Mean Corpuscular Volume 94.3 fl (81-99); Monocytes # 0.4 K/mm3 (0.1-1.0); Monocytes % 11.7 % (1.7-9.3); Neutrophils # 2.3 K/mm3 (1.8-7.8); Neutrophils % 63.9 % (37.0-80.0); Platelet Count 166 K/mm3 (142-424); Red Blood Count 4.84 M/mm3 (4.20-5.40); Red Cell Distribution Width 14.1 % (11.5-17.5); White Blood Count 3.6 K/mm3 (4.8-10.8)
[2024-01-08 21:15] LABS: Microscopic, Urine URINE MICROSCOPIC (MICROSCOPIC)
[2024-01-08] MEDS: VANCOMYCIN CONSULT REQUEST 1 EACH NOTAPPLIC (21:17)
--- NOTE | 2024-01-08 21:17 | PC.NURSE ---
Consulted with Orin at [facility] pharmacy for Vancomycin Consult and Zosyn verification.
[2024-01-08 21:23] LABS: INR 0.89 (0.9-1.1); Prothrombin Time 10.1 seconds (10.1-12.5)
[2024-01-08 21:25] LABS: Influenza A, PCR Not Detected (NotDetected); Influenza B, PCR Not Detected (NotDetected)
[2024-01-08 21:27] LABS: Appearance,Urine CLEAR (Clear); Bilirubin,Urine Negative (Negative); Blood, Urine Negative (Negative); Color,Urine YELLOW (Yellow); Glucose,Urine (UA) Negative (Negative); Ketones,Urine Negative (Negative); Leukocyte Esterase,Urine Negative (Negative); Nitrate,Urine Negative (Negative); Protein,Urine Negative (Negative); Urobilinogen,Urine 0.2 EU/dl (0.2)
[2024-01-08 21:29] LABS: HCG Qualitative, Serum Negative (Negative)
[2024-01-08 21:31] LABS: Lactic Acid 1.2 mmol/L (0.7-2.1)
[2024-01-08 21:32] LABS: Alanine Aminotransferase 56 U/L (12-78); Albumin Level 4.4 g/dl (3.5-5.0); Albumin/Globulin Ratio 1.3 (1.1-1.8); Alkaline Phosphatase 80 U/L (38-126); Aspartate Amino Transferase 54 U/L (14-36); Bilirubin,Total 0.9 mg/dl (0.2-1.3); Blood Urea Nitrogen 9 mg/dl (7-17); Calcium 9.4 mg/dl (8.4-10.2); Carbon Dioxide 29 mmol/L (22.0-30.0); Chloride 99 mmol/L (98-107); Creatine Kinase 93 U/L (30-135); Creatinine Clearance Estimated 79 mL/min (50-200); Estimated Glomerular Filt Rate 94 ml/min (>60); GFR (African American) 114 ML/MIN (>60); Globulin 3.4 g/dL (1.3-3.2); Glucose 81 mg/dl (74-100); Sodium 134 mmol/L (136-145); Total Protein,Serum 7.8 g/dl (6.3-8.2)
[2024-01-08 21:37] LABS: C-Reactive Protein 0.9 mg/L (0-4)
[2024-01-08 21:40] LABS: Erythrocyte Sedimentation Rate 13 mm/hr (0-20)
[2024-01-08] MEDS: ACETAMINOPHEN 1,000MG/100ML VIAL 1000 MG IV (21:42)
[2024-01-08] MEDS: ONDANSETRON 4MG/2ML VIAL 4 MG IV (21:43)
[2024-01-08] MEDS: LACTATED RINGERS 1000ML 1,920 ML 960 ML IV (21:43)
[2024-01-08] MEDS: VANCOMYCIN HCL 1,000 MG in 0.9 % SODIUM CHLORIDE 250 ML 125 MG IV (21:44)
[2024-01-08] MEDS: PIPERACILLIN/TAZO 3.375 GM in 0.9 % SODIUM CHLORIDE 50 ML IV (21:44)
[2024-01-08 21:46] LABS: Troponin I < 0.01 ng/ml (0.00-0.034)
[2024-01-08 21:51] LABS: Amorphous Sediment,Urine 3+ /lpf; Bacteria,Urine 2+ /lpf
[2024-01-08 21:51] LABS: Procalcitonin 0.067 ng/mL (0.0-2.0)
[2024-01-08] MEDS: IOPAMIDOL-370 (76%);100ML BOTTLE 145 ML IV (21:56)
[2024-01-08] MEDS: SODIUM CHLORIDE 0.9% 10ML SYR (RAD ONLY) 10 ML IV (21:56)
[2024-01-08] MEDS: 0.9 % SODIUM CHLORIDE 50 ML VIAL IV (21:57)
[2024-01-08 22:01] LABS: Coronavirus 19, PCR Detected (NotDetected)
[2024-01-08] MEDS: diphenhydrAMINE 50MG/ML VIAL 50 MG IV (22:32)
[2024-01-08] MEDS: METHYLPREDNISOLONE SOD SUCC 125MG VIAL 125 MG IV (22:33)
[2024-01-08] MEDS: EPINEPHrine 1 MG/ML AMPUL 0.3 MG IM ×2 (22:35→22:45)
--- NOTE | 2024-01-08 22:42 | PC.NURSE ---
2230 M Jacqueline Psychiatric Social Worker notified this RN that he was moving pt from room 12, chair room, back to room 6, and that her vancomycin rate was decreased to 50ml hr, per Karen PIZANO because pts face was flushed after administration of vanc. This RN immediately went to room 6 and assessed pt and pts face appeared very red and pt reported her face was tingling. Vancomycin immediately DC and IV flushed by this RN. Rosa Elena Boyd MD called to bedside immediately. Verbal orders received and carried out emergently for 125 mg Solumedrol and 50 mg Benadryl. This RN went to omni to get meds, came back into room and by this time pt had developed hives on bilat arms and chest. Verbal orders then recieved for 0.3mg epi IM. Jeramy Gillespie RN pulled med, and was administered by this RN. BVM placed in room for precaution. Verbal orders then received for 20mg pepcid IV, med pulled by Jeramy Gillespie and administered by this RN. LR currently hanging was placed on pressure bag for precaution of pts BP decreasing. At approx 2245 pt reports lips still tingling. Verbal orders recieved and carried out emergently for 0.3 mg Epi IM. RT then called to bedside for 1 duoneb per MD Boyd. Pt received a total of 25.5ml of Vancomycin.
[2024-01-08 22:58] VITALS: PULSE 100; PULSE 101
[2024-01-08] MEDS: IPRATROPIUM/ALBUTEROL 3 ML NEB IH (22:58)
[2024-01-08] MEDS: FAMOTIDINE 20MG/2ML VIAL 20 MG IV (23:41)
--- NOTE | 2024-01-08 23:42 | PC.NURSE ---
While taking care of this patient, I administered as per the MAR Zosyn and Vancomycin after confirming the dosing with Orin at [facility]. I first administered the zosyn at a tko rate. After administering that I placed the vancomycin on a pump to infuse at a rate of 125mls/hr from a 250ml bag. After confirming with charge nurse Kirstie Gillespie to move this patient to Rm 6 I returned to the patient to find the patient flushed and warm to touch. I asked Whiskey Regauger S. Maria Guadalupe to look at the patient and we began moving the patient and HARINDER Shane was standing adjacent to the nurses station and noticed the patient exhibiting signs and symptoms of Kena Syndrome once moved over to the bed HARINDER Shane stated to turn the infusion rate of 50mls/hr to help. Once moved over to the bed patient began having hives and swelling of the lips and eye lids and difficulty breathing. Dr. Boyd then assumed care of the patient and I exited the room.
[2024-01-08 23:50] VITALS: BP 113/81; PULSE 134; RESP 17; O2SAT 98
[2024-01-08 23:55] VITALS: BP 105/81; PULSE 134; RESP 17; O2SAT 99
--- NOTE | 2024-01-08 23:59 | PC.NURSE ---
Called pharmacy per MD Boyd for recommendations on an antibiotic for potential MRSA, since pt had anaphylactic reaction to vancomycin
[2024-01-09] VITALS (23 sets, daily range): BP systolic 92–126; BP diastolic 62–90; PULSE 60–132; RESP 13–20; TEMP 36.5–36.9; O2SAT 95–100; BMI 15.1
[2024-01-09 00:13] LABS: Troponin I < 0.01 ng/ml (0.00-0.034)
--- NOTE | 2024-01-09 01:26 | PC.NURSE ---
CONTACTED HOUSE FOR ADMIT: DX: ANAPHYLAXIS, COVID; AND TO HOSPITALIST. SPOKE WITH TANGELA DE LA ROSA
--- NOTE | 2024-01-09 01:28 | PC.NURSE ---
Assisted patient to bedside commode. Provided patient with cookie from bedside table. No further needs expressed at this time.
--- NOTE | 2024-01-09 01:30 | PC.NURSE ---
@2330 pt noted to be tachycardic in 110's tyo 120's on telle with PVCs, A Boyd notified and EKG obtained. No new orders.
--- NOTE | 2024-01-09 01:38 | P.HP_ITS ---
History of Present Illness *Admission Date: 01/09/24 *Reason for visit:: general malaise *History of present illness: This is a 38yo female with PMHx of IV drug abuse presented to ED for evaluation of myalgias malaise and low back pain. Currently patient are obtunded, somnolent and does not cooperate with interview, therefore history taken for ED. per ED documentation: Patient reports that she has been having a headache for the last 2 days however today she began having subjective fever myalgias malaise and complaining of low lumbar back pain that does not radiate. Patient does have a history of IV drug use and last used methamphetamine last week. She denies shortness of breath cough change in mental status change in vision dizziness dysuria chills nausea vomiting or diarrhea. Admitted for further monitoring and management. [facility] Disclaimer: The information contained in this section may have been updated after the patient was seen, as this information can be updated by other users. Medical History (Updated 01/09/24 @ 04:08 by Vasyl Garibay APRN) Tobacco abuse IV drug abuse Hepatitis C Social History (Updated 01/09/24 @ 01:31 by Mary Ellen Cazares RN) Smoking Status: Current every day smoker tobacco type: cigarettes packs per day: 1 alcohol intake: never substance use type: marijuana and methamphetamine current occupational status: unemployed Travel in the last 8 weeks: None household members: significant other housing: house caffeine: Yes Review of Systems Review of Systems Review of systems:: unable to obtain Meds Home Medications and Allergies Home Medications ?Medication ?Instructions ?Recorded ?Confirmed ?Type levofloxacin 750 mg tablet 750 mg PO DAILY 5 days #5 tabs 01/09/24 Rx New Prescriptions to Start Prescriptions: levofloxacin Kyle Chase Allergies Allergy/AdvReac Type Severity Reaction Status Date / Time vancomycin Allergy Severe Anaphylaxis Verified 01/09/24 00:08 Sulfa (Sulfonamide Allergy Verified 01/08/24 20:41 Antibiotics) Exam Data for Last 24 hours Vital signs and Labs for Last 24 Hours: Temp Pulse Resp BP Pulse Ox O2 Del Method 98.4 F 100 H 21 122/81 100 Room Air 01/08/24 20:25 01/08/24 22:58 01/08/24 20:25 01/08/24 20:25 01/08/24 20:25 01/08/24 19:52 Laboratory Results - last 24 hr 01/08/24 20:47: SARS-CoV-2 (PCR) Detected A, Influenza A Untype (PCR) Not detected, Influenza Type B (PCR) Not detected 01/08/24 21:02: WBC 3.6 L, RBC 4.84, Hgb 14.9, Hct 45.6, MCV 94.3, MCH 30.7, MCHC 32.6, RDW 14.1, Plt Count 166, MPV 9.0, Neut % (Auto) 63.9, Lymph % (Auto) 18.9, [place] % (Auto) 11.7 H, Eos % (Auto) 2.3, Baso % (Auto) 3.2 H, Neut # (Auto) 2.3, Lymph # (Auto) 0.7, [place] # (Auto) 0.4, Eos # (Auto) 0.1, Baso # (Auto) 0.1, ESR 13, PT 10.1, INR 0.89 L, Sodium 134 L, Potassium 4.0, Chloride 99, Carbon Dioxide 29, Anion Gap 10.0, BUN 9, Creatinine 0.70, Estimated Creat Clear 79, Estimated GFR 94, Est GFR ( Amer) 114, Glucose 81, Lactate 1.2, Calcium 9.4, Total Bilirubin 0.9, AST 54 H, ALT 56, Alkaline Phosphatase 80, Total Creatine Kinase 93, Troponin I < 0.01, C-Reactive Protein 0.9, Total Protein 7.8, Albumin 4.4, Globulin 3.4 H, Albumin/Globulin Ratio 1.3, Procalcitonin 0.067, Serum HCG, Qual Negative 01/08/24 21:06: Urine Color Yellow, Urine Appearance Clear, Urine pH 7.0, Ur Specific [place] 1.010, Urine Protein Negative, Urine Glucose (UA) Negative, Urine Ketones Negative, Urine Blood Negative, Urine Nitrate Negative, Urine Bilirubin Negative, Urine Urobilinogen 0.2, Ur Leukocyte Esterase Negative, Urine RBC 3-5, Urine WBC 3-5, Ur Squamous Epith Cells 5-10, Amorphous Sediment 3+, Urine Bacteria 2+ 01/08/24 23:45: Troponin I < 0.01 I & O for Last 24 hours: Intake & Output 01/06/24 01/07/24 01/08/24 01/09/24 23:59 23:59 23:59 23:59 Weight 45.359 kg Constitutional Constitutional: thin and obtunded *Routine HEENT Exam Head: Present normocephalic Eye: Present EOMI and PERRL ENT: Present mucous membranes moist *Routine Neck Exam Neck: Present supple; Absent lymphadenopathy *Routine Respiratory Exam Respiratory: Present CTA bilaterally and wheezes *Routine Cardiovascular Exam Cardiovascular: Present RRR, Normal S1, Normal S2 and tachycardia *Routine Abdominal Exam Abdominal: Present soft and normoactive bowel sounds; Absent tenderness *Routine Rectal Exam Rectal:: deferred *Routine Genitalia Exam Genitalia:: deferred *Routine Extremities Exam Extremities: Absent cyanosis, clubbing or edema *Routine Skin Exam Skin: Present warm; Absent rash *Routine Neurological Exam Neurological: Present altered mental status Routine Psychiatric Exam Psychiatric: Present unable to assess Assessment and Plan *Assessment and plan (1) Anaphylactic reaction: Status: Acute Qualifiers: Encounter type: initial encounter Qualified Code(s): T78.2XXA - Anaphylactic shock, unspecified, initial encounter Category: Medical Code(s): T78.2XXA - Anaphylactic shock, unspecified, initial encounter (2) Tachyarrhythmia: Status: Acute Category: Medical Code(s): R00.0 - Tachycardia, unspecified (3) COVID-19: Status: Acute Category: Medical Code(s): U07.1 - COVID-19 (4) UTI (urinary tract infection): Status: Acute Qualifiers: Hematuria presence: without hematuria Urinary tract infection type: acute cystitis Qualified Code(s): N30.00 - Acute cystitis without hematuria Category: Medical Code(s): N39.0 - Urinary tract infection, site not specified (5) Amphetamine abuse: Status: Acute Category: Medical Code(s): F15.10 - Other stimulant abuse, uncomplicated (6) Tobacco use: Status: Acute Category: Social Hx Code(s): Z72.0 - Tobacco use Plan 38yo female with PMHx of IV drug abuse presented to ED for evaluation of myalgias malaise and low back pain. patient arrived hemodinamically stable. with general non specific symptoms. was teaken to CT for chest, abdomen, pelvis and spine. findings suggesting possible cystitis and enterocolitis. Patient also was found to be COVID positive. denied SOB, sating 100% on room air. WBC showed leukopenia. ED started VAncomycin and zoxyn. later patient developed allergic reaction to vanco. having anaphylactic symptoms. She required epi x 2 as well as IV methylprednisolone, IV Pepcid, IV Benadryl. Epi drip was prepared, but patient did not require initiation of this. She was given a DuoNeb as well, as she was noted to be wheezing on exam. Findings discussed with ED. Agreed for continue inpatient monitoring and management. Plan as follow: -Anaphylactic reaction Tachyarrhythmia. Likely secondary to vancomycin allergy reaction. Admit patient for inpatient monitoring and management Patient was given vancomycin, Zosyn, clindamycin. Will going to hold any further antibiotic management and continue monitor UA pending IV Solu-Medrol given. Benadryl as needed for itching Repeat labs in the morning Monitor for shortness of breath. Vital signs per unit Patient found to be COVID-positive Currently on room air saturation 100% Continue to monitor for signs of sepsis Droplet precautions Tylenol as needed for temperature and symptom management -CT of the abdomen reviewed Suspected cystitis and colitis. Low concern for bacteremia. Patient covered with broad antibiotic. We deferred further needs antibiotic History of amphetamine abuse and nicotine abuse On nicotine patch Monitor for withdrawal symptoms Lovenox for DVT prophylaxis. GI bleed protection by Protonix Full code Rounded on patient after nurse practitioner. Personally examined and interviewed patient. Agree with exam findings and care plan as documented.
--- NOTE | 2024-01-09 01:42 | PC.NURSE ---
Report called to Kaye RN on 2nd floor.
[2024-01-09] MEDS: CLINDAMYCIN PHOSPHATE/D5W 600 MG/50 ML PIGGYBACK 100 MG IV (01:47)
--- NOTE | 2024-01-09 01:49 | PC.NURSE ---
Scanned Clindamycin and was about to administer. 2nd floor staff at bedside to transport pt. Med not started, and transported with pt to 2nd floor. Called Kaye RN and notified her of this
--- NOTE | 2024-01-09 02:02 | PC.NURSE ---
pt arrived to floor via wheelchair @01:57
[2024-01-09] MEDS: 0.9 % SODIUM CHLORIDE 1000ML 1,000 ML 75 ML IV (02:25)
[2024-01-09 03:22] LABS: Troponin I < 0.01 ng/ml (0.00-0.034)
--- NOTE | 2024-01-09 05:07 | PC.NURSE ---
Ms Acevedo arrived to the floor from the ED this shift for anaphylaxis related to vancomycin and is COVID positive. The patient's stated complaint in the ED was a headache, generalized body aches, and a fever. Since arrival to the floor, the patient's oral temperature has remained 98.4; the patient has not reported any aches or pain at this time. Patient is slightly unsteady on her feet. During admission, the patient was very lethargic and was arousal to persistent shaking and by calling her name. After asking a series of questions, the patient no longer responded verbally and opened her eyes for a couple seconds before falling back asleep. She has been sleeping for most of the shift with occasional snoring. Patient has been running slightly tachycardic on telemetry this shift. Patient is stable on room air. The patient stated earlier this shift that she does not have any home medications. She has not had any further complaints this shift. Normal saline is currently infusing at 75mL/hr. Patient is resting supine in bed at this time. Pull alarm attached to patient. Call light within reach. Contact/airborne precautions sign is on door.
[2024-01-09 07:15] LABS: Alanine Aminotransferase 47 U/L (12-78); Albumin Level 3.4 g/dl (3.5-5.0); Albumin/Globulin Ratio 1.3 (1.1-1.8); Alkaline Phosphatase 77 U/L (38-126); Aspartate Amino Transferase 39 U/L (14-36); Bilirubin,Total 0.3 mg/dl (0.2-1.3); Blood Urea Nitrogen 12 mg/dl (7-17); Calcium 8.6 mg/dl (8.4-10.2); Carbon Dioxide 25 mmol/L (22.0-30.0); Chloride 107 mmol/L (98-107); Creatinine Clearance Estimated 92 mL/min (50-200); Estimated Glomerular Filt Rate 112 ml/min (>60); GFR (African American) 136 ML/MIN (>60); Globulin 2.6 g/dL (1.3-3.2); Glucose 189 mg/dl (74-100); Sodium 138 mmol/L (136-145)
[2024-01-09 07:31] LABS: Basophils % 0.3 % (0.1-2.0); Eosinophils % 0.1 % (0.1-12.0); Hematocrit 37.3 % (37.0-47.0); Hemoglobin 14.1 g/dL (12.2-16.2); Lymphocytes # 0.5 K/mm3 (0.7-4.5); Lymphocytes % 13.8 % (10-50); Mean Corpuscular HGB Conc 37.7 g/dL (31.8-35.4); Mean Corpuscular Hemoglobin 35.5 pg (27.0-31.2); Mean Corpuscular Volume 94.1 fl (81-99); Mean Platelet Volume 8.9 fl (7.4-10.4); Monocytes # 0.1 K/mm3 (0.1-1.0); Monocytes % 3.6 % (1.7-9.3); Neutrophils # 2.8 K/mm3 (1.8-7.8); Neutrophils % 82.1 % (37.0-80.0); Platelet Count 153 K/mm3 (142-424); Red Blood Count 3.96 M/mm3 (4.20-5.40); Red Cell Distribution Width 14.4 % (11.5-17.5); White Blood Count 3.4 K/mm3 (4.8-10.8)
--- NOTE | 2024-01-09 10:38 | PC.NURSE ---
Pt. demanded to have some food this morning... Dr. Chase aware and diet started.
--- NOTE | 2024-01-09 12:22 | EXP.DC.SUM ---
General Admission date:: 01/09/24 Discharge date: 01/09/24 HPI HPI HPI: This is a 38yo female with PMHx of IV drug abuse presented to ED for evaluation of myalgias malaise and low back pain. Currently patient are obtunded, somnolent and does not cooperate with interview, therefore history taken for ED. per ED documentation: Patient reports that she has been having a headache for the last 2 days however today she began having subjective fever myalgias malaise and complaining of low lumbar back pain that does not radiate. Patient does have a history of IV drug use and last used methamphetamine last week. She denies shortness of breath cough change in mental status change in vision dizziness dysuria chills nausea vomiting or diarrhea. Admitted for further monitoring and management. Hospital Course Hospital Course Hospital Course: 38yo female with PMHx of IV drug abuse presented to ED for evaluation of myalgias malaise and low back pain. patient arrived hemodinamically stable. with general non specific symptoms. was teaken to CT for chest, abdomen, pelvis and spine. findings suggesting possible cystitis and enterocolitis. Patient also was found to be COVID positive. denied SOB, sating 100% on room air. WBC showed leukopenia. ED started VAncomycin and zoxyn. later patient developed allergic reaction to vanco. having anaphylactic symptoms. She required epi x 2 as well as IV methylprednisolone, IV Pepcid, IV Benadryl. Epi drip was prepared, but patient did not require initiation of this. She was given a DuoNeb as well, as she was noted to be wheezing on exam. Findings discussed with ED. Agreed for continue inpatient monitoring and management. Did well overnight. No further episodes. Symptoms resolved. Stable to discharge home. Problems addressed as follows: Anaphylactic reaction Tachyarrhythmia. Likely secondary to vancomycin allergy reaction. Admitted for monitoring after allergic reaction to Vanco. She was also given Zosyn and clindamycin. Had no further episodes after receiving Benadryl and steroids. Repeat labs in the morning showed stable kidney function with BUN 12, creatinine 0.6. White count normal at 3.6. Hemoglobin 14.9. Remained stable on room air for duration of admission. Given clinical stability, will discharge home. Patient found to be COVID-positive Currently on room air saturation 100%. No significant symptoms or signs of sepsis. In droplet precaution during admission. Continue symptomatic management as an outpatient including Tylenol for fever or [id number] cough medicine for congestion and cough Suspected cystitis, Low concern for bacteremia. Initiated on Levaquin at discharge to complete 5 days of antibiotics for UTI. Culture still pending at discharge. Previous culture a year ago with E. coli, pansensitive. Stable to discharge home to complete antibiotics for UTI. Fairly asymptomatic from COVID at this time Exam Data for Last 24 hours Vital signs and Labs for Last 24 Hours: Temp Pulse Resp BP Pulse Ox O2 Del Method 97.7 F 63 16 92/62 L 95 Room Air 01/09/24 08:00 01/09/24 08:00 01/09/24 08:00 01/09/24 08:00 01/09/24 08:00 01/09/24 12:06 Laboratory Results - last 24 hr 01/08/24 20:47: SARS-CoV-2 (PCR) Detected A, Influenza A Untype (PCR) Not detected, Influenza Type B (PCR) Not detected 01/08/24 21:02: WBC 3.6 L, RBC 4.84, Hgb 14.9, Hct 45.6, MCV 94.3, MCH 30.7, MCHC 32.6, RDW 14.1, Plt Count 166, MPV 9.0, Neut % (Auto) 63.9, Lymph % (Auto) 18.9, [place] % (Auto) 11.7 H, Eos % (Auto) 2.3, Baso % (Auto) 3.2 H, Neut # (Auto) 2.3, Lymph # (Auto) 0.7, [place] # (Auto) 0.4, Eos # (Auto) 0.1, Baso # (Auto) 0.1, ESR 13, PT 10.1, INR 0.89 L, Sodium 134 L, Potassium 4.0, Chloride 99, Carbon Dioxide 29, Anion Gap 10.0, BUN 9, Creatinine 0.70, Estimated Creat Clear 79, Estimated GFR 94, Est GFR ( Amer) 114, Glucose 81, Lactate 1.2, Calcium 9.4, Total Bilirubin 0.9, AST 54 H, ALT 56, Alkaline Phosphatase 80, Total Creatine Kinase 93, Troponin I < 0.01, C-Reactive Protein 0.9, Total Protein 7.8, Albumin 4.4, Globulin 3.4 H, Albumin/Globulin Ratio 1.3, Procalcitonin 0.067, Serum HCG, Qual Negative 01/08/24 21:06: Urine Color Yellow, Urine Appearance Clear, Urine pH 7.0, Ur Specific [place] 1.010, Urine Protein Negative, Urine Glucose (UA) Negative, Urine Ketones Negative, Urine Blood Negative, Urine Nitrate Negative, Urine Bilirubin Negative, Urine Urobilinogen 0.2, Ur Leukocyte Esterase Negative, Urine RBC 3-5, Urine WBC 3-5, Ur Squamous Epith Cells 5-10, Amorphous Sediment 3+, Urine Bacteria 2+ 01/08/24 23:45: Troponin I < 0.01 01/09/24 02:54: Troponin I < 0.01 01/09/24 06:18: WBC 3.4 L, RBC 3.96 L, Hgb 14.1, Hct 37.3, MCV 94.1, MCH 35.5 H, MCHC 37.7 H, RDW 14.4, Plt Count 153, MPV 8.9, Neut % (Auto) 82.1 H, Lymph % (Auto) 13.8, [place] % (Auto) 3.6, Eos % (Auto) 0.1, Baso % (Auto) 0.3, Neut # (Auto) 2.8, Lymph # (Auto) 0.5 L, [place] # (Auto) 0.1, Eos # (Auto) 0.0, Baso # (Auto) 0.0, Sodium 138, Potassium 4.0, Chloride 107, Carbon Dioxide 25, Anion Gap 10.0, BUN 12 D, Creatinine 0.60, Estimated Creat Clear 92, Estimated GFR 112, Est GFR ( Amer) 136, Glucose 189 H D, Calcium 8.6, Magnesium 2.0, Total Bilirubin 0.3, AST 39 H D, ALT 47, Alkaline Phosphatase 77, Total Protein 6.0 L, Albumin 3.4 L D, Globulin 2.6, Albumin/Globulin Ratio 1.3 I & O for Last 24 hours: Intake & Output 01/06/24 01/07/24 01/08/24 01/09/24 23:59 23:59 23:59 23:59 Output Total Balance - Weight 45.359 kg 45.35 kg Constitutional Constitutional: no acute distress, thin and cooperative *Routine HEENT Exam Head: Present normocephalic Eye: Present EOMI and PERRL ENT: Present mucous membranes moist *Routine Neck Exam Neck: Present supple; Absent lymphadenopathy *Routine Respiratory Exam Respiratory: Present CTA bilaterally *Routine Cardiovascular Exam Cardiovascular: Present RRR *Routine Abdominal Exam Abdominal: Present soft and normoactive bowel sounds; Absent tenderness *Routine Rectal Exam Patient deferred: visual exam *Routine Exam Patient deferred: external exam *Routine Extremities Exam Extremities: Absent cyanosis, clubbing or edema *Routine Skin Exam Skin: Present intact and warm; Absent rash *Routine Neurological Exam Neurological: Present alert, oriented X3 and moving all extremities; Absent altered mental status Results Data Completed and Pending Labs on day of discharge: Labs from last 24 hours 01/09/24 01/09/24 01/08/24 06:18 02:54 23:45 WBC 3.4 L RBC 3.96 L Hgb 14.1 Hct 37.3 MCV 94.1 MCH 35.5 H MCHC 37.7 H RDW 14.4 Plt Count 153 MPV 8.9 Neut % (Auto) 82.1 H Lymph % (Auto) 13.8 [place] % (Auto) 3.6 Eos % (Auto) 0.1 Baso % (Auto) 0.3 Neut # (Auto) 2.8 Lymph # (Auto) 0.5 L [place] # (Auto) 0.1 Eos # (Auto) 0.0 Baso # (Auto) 0.0 ESR PT INR Sodium 138 Potassium 4.0 Chloride 107 Carbon Dioxide 25 Anion Gap 10.0 BUN 12 D Creatinine 0.60 Estimated Creat Clear 92 Estimated GFR 112 Est GFR ( Amer) 136 Glucose 189 H D Lactate Calcium 8.6 Magnesium 2.0 Total Bilirubin 0.3 AST 39 H D ALT 47 Alkaline Phosphatase 77 Total Creatine Kinase Troponin I < 0.01 < 0.01 C-Reactive Protein Total Protein 6.0 L Albumin 3.4 L D Globulin 2.6 Albumin/Globulin Ratio 1.3 Procalcitonin Serum HCG, Qual Urine Color Urine Appearance Urine pH Ur Specific [place] Urine Protein Urine Glucose (UA) Urine Ketones Urine Blood Urine Nitrate Urine Bilirubin Urine Urobilinogen Ur Leukocyte Esterase Urine RBC Urine WBC Ur Squamous Epith Cells Amorphous Sediment Urine Bacteria SARS-CoV-2 (PCR) Influenza A Untype (PCR) Influenza Type B (PCR) 01/08/24 01/08/24 01/08/24 21:06 21:02 20:47 WBC 3.6 L RBC 4.84 Hgb 14.9 Hct 45.6 MCV 94.3 MCH 30.7 MCHC 32.6 RDW 14.1 Plt Count 166 MPV 9.0 Neut % (Auto) 63.9 Lymph % (Auto) 18.9 [place] % (Auto) 11.7 H Eos % (Auto) 2.3 Baso % (Auto) 3.2 H Neut # (Auto) 2.3 Lymph # (Auto) 0.7 [place] # (Auto) 0.4 Eos # (Auto) 0.1 Baso # (Auto) 0.1 ESR 13 PT 10.1 INR 0.89 L Sodium 134 L Potassium 4.0 Chloride 99 Carbon Dioxide 29 Anion Gap 10.0 BUN 9 Creatinine 0.70 Estimated Creat Clear 79 Estimated GFR 94 Est GFR ( Amer) 114 Glucose 81 Lactate 1.2 Calcium 9.4 Magnesium Total Bilirubin 0.9 AST 54 H ALT 56 Alkaline Phosphatase 80 Total Creatine Kinase 93 Troponin I < 0.01 C-Reactive Protein 0.9 Total Protein 7.8 Albumin 4.4 Globulin 3.4 H Albumin/Globulin Ratio 1.3 Procalcitonin 0.067 Serum HCG, Qual Negative Urine Color Yellow Urine Appearance Clear Urine pH 7.0 Ur Specific [place] 1.010 Urine Protein Negative Urine Glucose (UA) Negative Urine Ketones Negative Urine Blood Negative Urine Nitrate Negative Urine Bilirubin Negative Urine Urobilinogen 0.2 Ur Leukocyte Esterase Negative Urine RBC 3-5 Urine WBC 3-5 Ur Squamous Epith Cells 5-10 Amorphous Sediment 3+ Urine Bacteria 2+ SARS-CoV-2 (PCR) Detected A Influenza A Untype (PCR) Not detected Influenza Type B (PCR) Not detected DS: Diagnosis Discharge Diagnosis (1) Anaphylactic reaction: Status: Acute Code(s): T78.2XXA - Anaphylactic shock, unspecified, initial encounter Qualifiers: Encounter type: initial encounter Qualified Code(s): T78.2XXA - Anaphylactic shock, unspecified, initial encounter (2) Tachyarrhythmia: Status: Acute Code(s): R00.0 - Tachycardia, unspecified (3) COVID-19: Status: Acute Code(s): U07.1 - COVID-19 (4) UTI (urinary tract infection): Status: Acute Code(s): N39.0 - Urinary tract infection, site not specified Qualifiers: Hematuria presence: without hematuria Urinary tract infection type: acute cystitis Qualified Code(s): N30.00 - Acute cystitis without hematuria (5) Amphetamine abuse: Status: Acute Code(s): F15.10 - Other stimulant abuse, uncomplicated (6) Tobacco use: Status: Acute Code(s): Z72.0 - Tobacco use Meds Home Medications and Allergies Home Medications ?Medication ?Instructions ?Recorded ?Confirmed ?Type levofloxacin 750 mg tablet 750 mg PO DAILY 5 days #5 tabs 01/09/24 Rx New Prescriptions to Start Prescriptions: levofloxacin Kyle Chase Allergies Allergy/AdvReac Type Severity Reaction Status Date / Time vancomycin Allergy Severe Anaphylaxis Verified 01/09/24 00:08 Sulfa (Sulfonamide Allergy Verified 01/08/24 20:41 Antibiotics) Discharge Plan Disposition Patient Disposition: Home, Self-Care Condition: Fair Follow up Plan Prescriptions/Medication Reconciliation: New levofloxacin 750 mg tablet 750 mg PO DAILY 5 Days Qty: 5 0RF Problem Reconciliation Problems Reviewed?: Yes Patient Discharge Instructions ACTIVITY: Continue current activity DIET: continue same diet Print Language: Mongolian Providers Primary Care Provider: Vinny Venegas Admit Provider: Cindy Harris Attending Provider: Cindy Harris
--- NOTE | 2024-01-09 23:36 | ECG_ITS ---
APPROVED REPORT Exam: Resting ECG HR:115 bpm ECG Measurements Heart Rate 115 AXES [place] 136 P 68 QRSd 90 QRS 106 QT 287 T 83 QTc 355 Conclusion SINUS TACHYCARDIA WITH FREQUENT SUPRAVENTRICULAR PREMATURE COMPLEXES POSSIBLE LEFT ATRIAL ENLARGEMENT [-0.1mV P-WAVE IN V1/V2] RIGHT AXIS DEVIATION [QRS AXIS > 100] NONSPECIFIC T-WAVE ABNORMALITY ABNORMAL ECG UNCONFIRMED REPORT Electronically signed by : CHIP RUEDA, 01/10/2024 06:56:09
--- NOTE | 2024-01-10 14:19 | CARE MANAGER ---
Unable to reach patient via phone, incorrect number in the system.
== END 2024-01-09 17:18 | disposition home or self-care (01) ==
LOC: ER 01-09 → 2ND 01-09 02:01
PROVIDERS: Nurse Practitioner Family; Physician Assistant; Admitting Provider Internal Medicine; Emergency Provider Emergency Medicine; PCP Nurse Practitioner Family; Visit Provider Internal Medicine
DX: T88.6XXA Anaphylactic reaction due to adverse effect of correct drug or medicament properly administered, initial encounter (principal); T36.8X5A Adverse effect of other systemic antibiotics, initial encounter; M79.10 Myalgia, unspecified site; R53.81 Other malaise; N30.00 Acute cystitis without hematuria; U07.1 COVID-19; R00.0 Tachycardia, unspecified; F15.10 Other stimulant abuse, uncomplicated; F17.210 Nicotine dependence, cigarettes, uncomplicated
CPT/HCPCS: 36415; 70450; 71275; 72127; 72130; 72133; 74177; 80053; 81001; 82550; 83605; 83735; 84145; 84484; 84703; 85025; 85610; 85651; 86140; 87040; 87086; 87636; 93005; 99291; G0378; J0131; J1200; J2405; J2543; J2919; J3370; J7050; J7120; J7620; Q9967; S0028